=== PATIENT | female | born 1965 | race Caucasian/White ===

== ENCOUNTER 2023-05-29 12:19 | Inpatient (IN) ==
[2023-05-29] MEDS ORDERED: ONDANSETRON INJ 2 MG/ML 2 ML VIAL IV STA (12:26)
[2023-05-29] MEDS ORDERED: SODIUM CHLORIDE 0.9% 500 ML IV STA (12:26)
[2023-05-29 12:43] LABS: Hematocrit (blood only) 44.8 % (37.0-47.0); Mean Corpuscular Hemoglobin 31.3 pg (25.0-34.0); Mean Corpuscular Hgb Conc 33.5 g/dL (32.0-36.0); Mean Corpuscular Volume 93.3 fL (80.0-100.0); Mean Platelet Volume 9.4 fL (9.4-12.4); Platelet Count 222 K/uL (130-400); RDW Coefficient of Variation 13.4 % (11.5-14.5); RDW Standard Deviation 45.5 fL (36.4-46.3); White Blood Count 5.81 K/ul (4.8-10.8)
[2023-05-29 13:05] LABS: Basophils # (auto) 0.03 K/uL (0.00-0.20); Basophils % (auto) 0.5 %; Eosinophils % (auto) 1.7 %; Immature Granulocytes # (auto) 0.01 K/uL (0.01-0.20); Immature Granulocytes % (auto) 0.2 %; Lymphocytes # (auto) 0.61 K/uL (1.20-3.40); Lymphocytes % (auto) 10.5 %; Monocytes # (auto) 0.02 K/uL (0.11-0.59); Monocytes % (auto) 0.3 %; Neutrophils # (auto) 5.04 K/uL (1.40-6.50); Neutrophils % (auto) 86.8 %
[2023-05-29 13:06] LABS: Albumin Globulin Ratio 1.7 (0.9-2); Albumin Level 4.5 gm/dl (3.4-5.0); BUN Creatinine Ratio 13.3 (10-20); Bilirubin,Total 0.4 mg/dl (0.2-1.0); Calcium 10.5 mg/dl (8.6-10.3); Creatinine Clr Calc Pharmacy 31.3 ml/min; Est GFR (African American) 23.7 ml/min; Est GFR (Non-African American) 20.4 ml/min; Globulin 2.7 gm/dl (2.5-4.0); Total Protein 7.2 gm/dl (6.0-8.3)
[2023-05-29] MEDS ORDERED: HYDROmorphone INJ 1 MG/ML SYRINGE IV PRN ×2 (13:08→18:58)
--- NOTE | 2023-05-29 13:16 | CT Scan Report ---
ABDOMEN AND PELVIS CT WITHOUT CONTRAST CT DOSE: 1563.68 mGy.cm HISTORY: right flank pain TECHNIQUE: Multiaxial CT images of the abdomen and pelvis were performed without contrast. A dose lo wering technique was utilized adhering to the principles of ALARA. COMPARISON STUDY: Abdomen and pelvis CT 03/21/2023. FINDINGS: There is a cluster of small stones within the right ureterovesical junction with the larges t on image 350 measuring 4 mm resulting in moderate right hydroureteronephrosis. There is a punctate nonobstructing stone within the proximal right ureter on image 211 and an 8 x 5 mm stone within the m id right ureter on image 220. These may also account for the right-sided hydronephrosis. No left uret eral calculi or left-sided hydronephrosis. There is a punctate stone within the bladder on image 357. Small focus of gas within the bladder may be due to prior catheterization. No bladder wall thickenin g. Calcifications seen throughout the medullary pyramids and multiple bilateral renal calculi consist ent with medullary nephrocalcinosis. This remains unchanged. There is mild right perinephric edema. T his is likely reactive. Multifocal left cortical renal scarring again noted. Mild dependent changes s een within the lung bases. No pneumoperitoneum. No pneumatosis. No acute fractures identified. A stab le 7 mm hypodense lesion within the right hepatic dome. This is incompletely characterized on this no ncontrast study but favors a cyst. There is a punctate gallstone noted. No gallbladder wall thickenin g. The unenhanced pancreas, spleen, and adrenal glands are unremarkable. No retroperitoneal lymphaden opathy. Normal caliber abdominal aorta. No pelvic lymphadenopathy or pelvic free fluid. The uterus an d adnexa are unremarkable. No bowel wall thickening or obstruction. Normal appendix. IMPRESSION: 1. Multiple stones within the right ureter/ureterovesical junction resulting in moderate right hydrou reteronephrosis. 2. Multiple bilateral renal calculi with associated medullary nephrocalcinosis. 3. Cholelithiasis. 4. Additional findings as described above. ACT 112: Negative or not required by law. Electronically signed by: Geremias Coburn M.D. 05/29/2023 1:14 PM
[2023-05-29] MEDS ORDERED: ERTAPENEM SODIUM 10 ML IV STA (13:21)
--- NOTE | 2023-05-29 13:27 | Emergency Department Note ---
Impression & Plan Right ureteral calculus, Hydronephrosis, right, Complicated urinary tract infection, Acute right flank pain ED Provider Note NAME: CHIQUITA ROLAND AGE: 58 SEX: F : 1965 ARRIVES VIA: Walk-In INFORMANT: Patient, ED PROVIDER(S): Ankit Shetty DO CHIEF COMPLAINT: Flank pain HPI: The patient is a 58-year-old female who has a history of renal colic and ureteral calculi who presented to the emergency department with an acute onset of right-sided flank pain. The patient's had pain ever since this morning. She notices severe pain with nausea. The patient has a history of E. coli bacteremia as well as sepsis because of infected kidney stones. She states that the pain is similar. She denies having any rectal bleeding or chest pain. She denies having any hemoptysis. The patient presented to the emergency department because her primary urologist is at our facility. She states that he is aware that she is here. ROS: See above HPI for pertinent positives & negatives. A total of 10 systems reviewed and were otherwise negative. PAST MEDICAL HISTORY: See Below PAST SURGICAL HISTORY: See Below FAMILY HISTORY: See Below SOCIAL HISTORY: See Below HOME MEDICATIONS: See Below ALLERGIES: See Below VITALS: See Below PHYSICAL EXAMINATION: GENERAL: The patient is awake and alert. She is very anxious and appears to be uncomfortable EYES: The conjunctivae are clear. The pupils are round and reactive. EARS, NOSE, MOUTH AND THROAT: The nose is without any evidence of any deformity. NECK: The neck is nontender and supple. RESPIRATORY: Normal respiratory effort is noted there is no evidence of wheezing rhonchi or rales CARDIOVASCULAR: Regular rate and rhythm noted there no murmurs rubs or gallops normal S1 normal S2. GASTROINTESTINAL: The abdomen is soft. There is right-sided tenderness to palpation but no specific guarding rigidity. BACK: Right CVA tenderness was noted to percussion. MUSCULOSKELETAL/EXTREMITIES: There is no evidence of gross deformity full range of motion is noted in the hips and shoulders. SKIN: There is no obvious evidence of any rash. There are no petechiae, pallor or cyanosis noted. NEUROLOGIC: Patient is awake alert and oriented x3 MEDICAL DECISION MAKING: The patient is a 58-year-old female who presented to the emergency department for an evaluation of flank pain. The patient describes right flank pain that began today. The patient's history and physical exam appear to be consistent with renal colic and she has a history of similar episodes in the past. The patient also has a history of bacteremia due to infected kidney stones. I did review the patient's previous urine cultures. She was started on a course of IV antibiotics. She was also treated with IV fluids and IV pain medication. She was reevaluated multiple times. I did discuss the patient's radiographic studies with her including the CAT scan of the abdomen pelvis showing hydronephrosis as well as multiple right ureteral calculi. Because of her findings I discussed her condition with the on-call urology group. I also discussed her condition with the on-call [facility] hospitalist group. They have agreed to evaluate the patient in the emergency department for further management and disposition. Triage Nursing notes reviewed. Prior medical records reviewed Vital Signs: reviewed and remarkable for elevated blood pressure. Differential diagnosis: Renal colic, UTI, appendicitis, diverticulitis, mesenteric ischemia, aortic pathology, infections, inflammatory bowel disease, PUD, biliary pathology, as well as other pathologies. ER treatment provided: See below Diagnostics interpreted by me: ECG: none Cardiac Monitoring: An order was placed for continuous cardiac monitoring. The monitor shows a rate of 108 bpm with sinus tachycardia. Laboratory studies: As stated above and show below. Imaging studies: See below. Radiographic imaging was reviewed by myself Consultation(s): I discussed this case with Deborah who was on for Urology I discussed this case with Dr. Viera who is on-call for the [facility] hospitalist group. Past Med/Surg History Medical History Bacteremia Discharge planning issues DVT prophylaxis WENDY (acute kidney injury) Sepsis Fever Left ureteral stone History of COVID-19 diagnosed 2019--mild symptoms, no symptoms now Benign positional vertigo IBS (irritable bowel syndrome) Atelectasis per pt was a hx, had had to use an incentive spirometry--no issues currently (states she rides her bike 30 miles without any breathing issues) History of anesthesia reaction 04/2019 "intubation induced apnea" @ [facility] in [place] was told this during cystoscopy--per pt has had 2 cystoscopy procedures since then with no issues at all Nephrolithiasis Medullary sponge kidney Dilatation of left ureter History of nephrolithiasis Surgical History History of dilatation and curettage History of bilateral tubal ligation History of strabismus surgery left History of cystoscopy multiple--started in 2013 "more than a dozen". cysto, L stent 03/21/23 emergently : MAC without issue H/O lithotripsy multiple. cysto, litho 01/09/23: [place]: LMA#4 without issue Family History Family/Other Kidney stones Cancer Hypertension Mother Family history of reaction to anesthesia 1973 radical mastectomy--had difficulty time waking her Sister Family history of reaction to anesthesia difficulty waking/nausea Social History Smoking Status: Never smoker Second Hand Exposure: No; Do You Dip or Chew Tobacco: No; Hx Alcohol Use: No Hx Substance Use: No Preferred Language: Nigerian Communication Ability: Effective Speech Lang Path Therapist Required: No Beliefs That Will Affect Care: None Current Living Situation: Spouse and Family Current Living Situation Comment: Lives with and 25yr old son Feels Safe at Home: Yes Assistive Devices: Glasses Allergies Allergies Allergy/AdvReac Type Severity Reaction Status Date / Time Iodinated Contrast Media Allergy Severe Difficulty Verified 04/06/23 07:08 Breathing lactose Allergy Severe (dairy) Verified 04/06/23 07:08 Difficulty Breathing penicillin G Allergy Severe breathing Verified 04/06/23 07:08 difficulty Sulfa (Sulfonamide Allergy Severe Difficulty Verified 04/06/23 07:08 Antibiotics) Breathing adhesive tape Allergy Mild itching Verified 04/06/23 07:08 latex Allergy Mild Rash Verified 04/06/23 07:08 soy Allergy Unknown Unknown Verified 04/06/23 07:08 midazolam [From Versed] AdvReac Intermediate "i just Verified 04/06/23 07:08 get a lot of vomiting" Home Meds Home Medications Medication Instructions Recorded Confirmed cholecalciferol (vitamin D3) 25 25 mcg PO QAM 01/19/22 04/06/23 mcg (1,000 unit) capsule magnesium citrate 100 mg tablet 100 mg PO TIDM 01/19/22 04/06/23 zinc 50 mg tablet 50 mg PO QAM 01/19/22 04/06/23 potassium citrate 99 mg capsule 99 mg PO TIDM 05/01/22 04/06/23 calcium citrate 250 mg PO TIDM 08/30/22 04/06/23 Previous Rx's Medication Instructions Recorded ciprofloxacin HCl 250 mg tablet 250 mg PO BID 7 days #14 tabs 04/02/23 hydrocodone 5 mg-acetaminophen 325 1 tab PO Q6H PRN pain #20 tabs 04/06/23 mg tablet Results & Data (ED) Vital Signs Vital Signs - 24 hr 05/29/23 12:21 05/29/23 13:37 05/29/23 14:30 Temperature 36.8 C Temperature Source Temporal Artery Scan Pulse Rate 95 H 86 Pulse Rate [Apical] Pulse Rate [Radial] 114 H Pulse Rhythm Regular Pulse Rhythm [Apical] Pulse Rhythm [Radial] Regular Pulse Strength [Apical] Respiratory Rate 20 18 Respiratory Effort / Characteristics Non-Labored Spontaneous Non-Labored Respiratory Depth Normal Normal Respiratory Pattern Regular Blood Pressure 191/104 H Blood Pressure [Right Arm] 165/107 H Blood Pressure Mean 133 Blood Pressure Mean [Right Arm] 126 Blood Pressure Position [Right Arm] Pulse Oximetry 977 H 95 Oxygen Delivery Method Room Air Oxygen Flow Rate Sepsis Recent Fever Within 48 Hours No Sepsis New/Unexplained Change in Mental Status No Sepsis Action Taken by Nursing No Action Required 05/29/23 15:00 05/29/23 15:12 05/29/23 16:16 Temperature 38.8 C H 37.5 C Temperature Source Oral Temporal Artery Scan Pulse Rate 114 H Pulse Rate [Apical] 105 H 110 H Pulse Rate [Radial] Pulse Rhythm Pulse Rhythm [Apical] Regular Regular Pulse Rhythm [Radial] Regular Pulse Strength [Apical] Normal Respiratory Rate 18 20 26 H Respiratory Effort / Characteristics Non-Labored Spontaneous Non-Labored Respiratory Depth Normal Normal Respiratory Pattern Regular Regular Blood Pressure 165/107 H Blood Pressure [Right Arm] 181/98 H 155/83 H Blood Pressure Mean Blood Pressure Mean [Right Arm] 125 107 Blood Pressure Position [Right Arm] Sitting Semi-fowlers Pulse Oximetry 95 95 96 Oxygen Delivery Method Room Air Room Air Oxymask Oxygen Flow Rate 5 Sepsis Recent Fever Within 48 Hours Sepsis New/Unexplained Change in Mental Status Sepsis Action Taken by Nursing 05/29/23 16:25 05/29/23 16:35 Temperature Temperature Source Temporal Artery Scan Temporal Artery Scan Pulse Rate Pulse Rate [Apical] 109 H 108 H Pulse Rate [Radial] Pulse Rhythm Pulse Rhythm [Apical] Regular Regular Pulse Rhythm [Radial] Regular Regular Pulse Strength [Apical] Respiratory Rate 27 H 27 H Respiratory Effort / Characteristics Non-Labored Non-Labored Respiratory Depth Normal Normal Respiratory Pattern Regular Regular Blood Pressure Blood Pressure [Right Arm] 153/91 H 152/97 H Blood Pressure Mean Blood Pressure Mean [Right Arm] 111 115 Blood Pressure Position [Right Arm] Semi-fowlers Semi-fowlers Pulse Oximetry 100 100 Oxygen Delivery Method Oxymask Room Air Oxygen Flow Rate 3 0 Sepsis Recent Fever Within 48 Hours Sepsis New/Unexplained Change in Mental Status Sepsis Action Taken by Snf Medications Current Medication List: was personally reviewed by me Laboratory Data Attestation: I reviewed the patient's lab results. 05/29/23 12:28 05/29/23 12:28 Lab Results 05/29/23 05/29/23 05/29/23 Range/Units 12:28 13:35 Unknown WBC 5.81 (4.8-10.8) K/ul RBC 4.80 (4.20-5.40) M/uL Hgb 15.0 (12.0-16.0) g/dl Hct 44.8 (37.0-47.0) % MCV 93.3 (80.0-100.0) fL MCH 31.3 (25.0-34.0) pg MCHC 33.5 (32.0-36.0) g/dL RDW Std Deviation 45.5 (36.4-46.3) fL RDW Coeff of Bryant 13.4 (11.5-14.5) % Plt Count 222 (130-400) K/uL MPV 9.4 (9.4-12.4) fL Immature Gran % (Auto) 0.2 % Neut % (Auto) 86.8 % Lymph % (Auto) 10.5 % [place] % (Auto) 0.3 % Eos % (Auto) 1.7 % Baso % (Auto) 0.5 % Neut # (Auto) 5.04 (1.40-6.50) K/uL Lymph # (Auto) 0.61 L (1.20-3.40) K/uL [place] # (Auto) 0.02 L (0.11-0.59) K/uL Eos # (Auto) 0.10 (0.00-0.50) K/uL Baso # (Auto) 0.03 (0.00-0.20) K/uL Immature Gran # (Auto) 0.01 (0.01-0.20) K/uL Sodium 141 (136-145) mmol/L Potassium 4.0 (3.5-5.1) mmol/L Chloride 111 H (98-107) mmol/L Carbon Dioxide 22 (21-32) mmol/L Anion Gap 8 (3-11) BUN 33 H (6-23) mg/dl Creatinine 2.48 H (0.6-1.2) mg/dl Est Cr Clr Drug Dosing 31.3 ml/min Est GFR ( Amer) 23.7 ml/min Est GFR (Non-Af Amer) 20.4 ml/min BUN/Creatinine Ratio 13.3 (10-20) Glucose 109 H (70-99(Fasting)) mg/dl Calcium 10.5 H (8.6-10.3) mg/dl Total Bilirubin 0.4 (0.2-1.0) mg/dl AST 23 (13-39) U/L ALT 19 (7-52) U/L Alkaline Phosphatase 79 (34-104) U/L Total Protein 7.2 (6.0-8.3) gm/dl Albumin 4.5 (3.4-5.0) gm/dl Globulin 2.7 (2.5-4.0) gm/dl Albumin/Globulin Ratio 1.7 (0.9-2) Urine Color Yellow Urine Appearance Cloudy A (Clear) Urine pH 7.0 (4.5-7.5) POC Urine pH 6 (4.5-7.5) Ur Specific [place] 1.008 (1.000-1.030) Urine Protein 1+ H (Negative) POC Urine Protein 3+ H (Negative) Urine Glucose (UA) Negative (Negative) POC Ur Glucose (UA) Normal (Normal) Urine Ketones Negative (Negative) POC Urine Ketones Negative (Negative) Urine Blood 2+ H (Negative) POC Urine Blood 50 H (Negative) Urine Nitrite Positive A (Negative) POC Urine Nitrite Positive A (Negative) Urine Bilirubin Negative (Negative) POC Urine Bilirubin Negative (Negative) Urine Urobilinogen Negative (Negative) POC Urine Urobilinogen Normal (Normal) Ur Leukocyte Esterase 3+ H (Negative) POC U Leukocyte Esteras 2+ H (Negative) Urine WBC (Auto) >30 H (0-5) /hpf Urine RBC (Auto) 10-30 H (0-4) /hpf U Hyaline Cast (Auto) 1-5 (0-5) /lpf U Epithel Cells (Auto) 20-30 H (0-5) /lpf Urine Bacteria (Auto) 2+ H (Negative) Administered Medications Discontinued Medications Sodium Chloride (Nss) 500 mls @ 999 mls/hr IV .Q31M STA Stop: 05/29/23 12:56 Last Infusion: 05/29/23 13:14 Dose: Infused Documented By: Admin: 05/29/23 12:33 Dose: 999 mls/hr Documented By: ALL Ertapenem (Invanz) 10 mls @ 2 mls/min IV NOW STA Stop: 05/29/23 13:25 Last Admin: 05/29/23 14:05 Dose: 2 mls/min Documented By: RADHA Ondansetron HCl (Ondansetron Inj 2 Mg/Ml 2 Ml Vial) 4 mg IV NOW STA Stop: 05/29/23 12:27 Last Admin: 05/29/23 12:33 Dose: 4 mg Documented By: ALL Ondansetron HCl (Ondansetron Inj 2 Mg/Ml 2 Ml Vial) Confirm Administered Dose 4 mg .ROUTE .STK-MED ONE Stop: 05/29/23 16:39 Last Admin: 05/29/23 16:43 Dose: 4 mg Documented By: YOLI Imaging Data Attestation: I personally reviewed and interpreted this imaging study as follows: My Impression: CT of the abdomen and pelvis was obtained in the emergency department. My interpretation is no free air, no signs of bowel obstruction, hydronephrosis and stranding was noted about the right kidney and the right proximal ureter. There is also ureteral calculus noted in the proximal mid ureter. Final report below Radiologist's Impression: Abdomen/Pelvis CT 05/29/23 12:[address] WITHOUT CONTRAST CT DOSE: 1563.68 mGy.cm HISTORY: right flank pain TECHNIQUE: Multiaxial CT images of the abdomen and pelvis were performed without contrast. A dose lowering technique was utilized adhering to the principles of ALARA. COMPARISON STUDY: Abdomen and pelvis CT 03/21/2023. FINDINGS: There is a cluster of small stones within the right ureterovesical junction with the largest on image 350 measuring 4 mm resulting in moderate right hydroureteronephrosis. There is a punctate nonobstructing stone within the proximal right ureter on image 211 and an 8 x 5 mm stone within the mid right ureter on image 220. These may also account for the right-sided hydronephrosis. No left ureteral calculi or left-sided hydronephrosis. There is a punctate stone within the bladder on image 357. Small focus of gas within the bladder may be due to prior catheterization. No bladder wall thickening. Calcifications seen throughout the medullary pyramids and multiple bilateral renal calculi consistent with medullary nephrocalcinosis. This remains unchanged. There is mild right perinephric edema. This is likely reactive. Multifocal left cortical renal scarring again noted. Mild dependent changes seen within the lung bases. No pneumoperitoneum. No pneumatosis. No acute fractures identified. A stable 7 mm hypodense lesion within the right hepatic dome. This is incompletely characterized on this noncontrast study but favors a cyst. There is a punctate gallstone noted. No gallbladder wall thickening. The unenhanced pancreas, spleen, and adrenal glands are unremarkable. No retroperitoneal lymphadenopathy. Normal caliber abdominal aorta. No pelvic lymphadenopathy or pelvic free fluid. The uterus and adnexa are unremarkable. No bowel wall thickening or obstruction. Normal appendix. IMPRESSION: 1. Multiple stones within the right ureter/ureterovesical junction resulting in moderate right hydroureteronephrosis. 2. Multiple bilateral renal calculi with associated medullary nephrocalcinosis. 3. Cholelithiasis. 4. Additional findings as described above. ACT 112: Negative or not required by law. Electronically signed by: Geremias Coburn M.D. 05/29/2023 1:14 PM Discharge Plan Visit Data Chief Complaint: Kidney Stone Stated Complaint: KIDNEY STONE ED Provider: Ankit Shetty Discharge Problem: Right ureteral calculus, Hydronephrosis, right, Complicated urinary tract infection, Acute right flank pain Patient Disposition: Being Evaluated by Hospitalist Discharge Instructions Interventions: ED Discharge Assessment Last Done: 05/29/23 15:00
[2023-05-29 13:50] LABS: Appearance Urine Cloudy (Clear); Bacteria Urine Automated 2+ (Negative); Bilirubin Urine Negative (Negative); Blood Urine 2+ (Negative); Color Urine Yellow; Epithelial Cell Urine Auto 20-30 /lpf (0-5); Glucose Urine UA Negative (Negative); Ketones Urine Negative (Negative); Leukocyte Esterase Urine 3+ (Negative); Nitrite Urine Positive (Negative); Protein Urine 1+ (Negative); Specific Gravity Urine 1.008 (1.000-1.030); Urobilinogen Urine Negative (Negative); WBC Urine Automated >30 /hpf (0-5)
[2023-05-29 13:58] LABS: POC Urine Bilirubin Negative (Negative); POC Urine Blood 50 (Negative); POC Urine Glucose Normal (Normal); POC Urine Ketones Negative (Negative); POC Urine Leukocytes 2+ (Negative); POC Urine Nitrite Positive (Negative); POC Urine Protein 3+ (Negative); POC Urine Urobilinogen Normal (Normal); POC Urine pH 6 (4.5-7.5)
--- NOTE | 2023-05-29 14:50 | Urology Consultation ---
Date of Consultation May 29, 2023 Assessment & Plan (1) Right ureteral calculus: (2) Hydronephrosis, right: 58yoF with history of medullary sponge kidney and recurrent nephrolithiasis presented to the emergency department today with acute onset of right flank pain, nausea and vomiting. CT A/P notable for multiple right ureteral calculi with resulting moderate hydronephrosis and UA is suspicious for infection. Patient currently afebrile She is tachycardic during exam with rigors Lab work reviewedcreatinine 2.48, WBC 5.81 UA suspicious for infection with positive nitrates, 3+ leukocyte esterase, >30 WBC, 2+ bacteria Urine culture pending CT imaging reviewed and discussed with patient and husbandmultiple obstructing right ureteral calculi with hydronephrosis, right perinephric stranding Discussed concern for urinary tract infection in the context of obstructing stones Discussed recommendation for right ureteral stent placement urgently Patient is in agreement with the plan Proceed to OR for cystoscopy, retrograde pyelogram and right ureteral stent placement Risks and benefits of procedure to be discussed with patient by Dr. Geronimo Received Ertapenem in the ED Keep NPO for procedure Supervising Physician Co-Signing Physician Notes plan for cysto, right ureteral stent placement now long history of similar occurrences History of Present Illness History of Present Illness This is a 58-year-old female with past medical history of nephrolithiasis, medullary sponge kidney who presented to the emergency department today with right flank pain, nausea and vomiting. On arrival, she is afebrile, hypertensive, tachycardic. Lab work reviewed and shows creatinine 2.48, WBC 5.81, hemoglobin 15.0. Urinalysis notable for 2+ blo od, positive nitrates, 3+ leukocyte esterase, >30 WBC, 10-30 RBC, 2+ bacteria. Urine culture pending. CT abdomen and pelvis notable for multiple stones within the right ureter and UVJ resulting in moderate right hydroureteronephrosis; multiple bilateral renal calculi consistent with medullary nephrocalcinosis. She was treated with IV fluids, ondansetron and ertapenem in the emergency department. Urology is consulted for ureteral stones and UTI. Patient is known to our service for longstanding hx of nephrolithiasis and medullary sponge kidney, follows with Dr. Geronimo. She was admitted to [facility] 03/21-03/23/23 secondary to obstructing ureteral calculus/UTI/sepsis. She had emergent left stent placement on 03/21/23. Subsequently underwent left URSLL, stent exchange on 04/06/2023. Patient seen and examined in the emergency department. at bedside. She is awake and resting in litter, appears uncomfortable. Denies fever, but has shaking chills which she reports started earlier. Continues to have significant right-sided flank pain. She reports sudden onset of right flank pain around 8 am this am. She declines pain medication due to significant nausea and vomiting. She last ate this morning around 5 AM, but has been vomiting consistently since then. She denies hematuria. No significant dysuria. Reports urine is malodorous. Allergies Allergy/AdvReac Type Severity Reaction Status Date / Time Iodinated Contrast Media Allergy Severe Difficulty Verified 04/06/23 07:08 Breathing lactose Allergy Severe (dairy) Verified 04/06/23 07:08 Difficulty Breathing penicillin G Allergy Severe breathing Verified 04/06/23 07:08 difficulty Sulfa (Sulfonamide Allergy Severe Difficulty Verified 04/06/23 07:08 Antibiotics) Breathing adhesive tape Allergy Mild itching Verified 04/06/23 07:08 latex Allergy Mild Rash Verified 04/06/23 07:08 soy Allergy Unknown Unknown Verified 04/06/23 07:08 midazolam [From Versed] AdvReac Intermediate "i just Verified 04/06/23 07:08 get a lot of vomiting" Home Medications Medication Instructions Recorded Confirmed Type cholecalciferol (vitamin D3) 25 25 mcg PO QAM 01/19/22 04/06/23 History mcg (1,000 unit) capsule magnesium citrate 100 mg tablet 100 mg PO TIDM 01/19/22 04/06/23 History zinc 50 mg tablet 50 mg PO QAM 01/19/22 04/06/23 History potassium citrate 99 mg capsule 99 mg PO TIDM 05/01/22 04/06/23 History calcium citrate 250 mg PO TIDM 08/30/22 04/06/23 History ciprofloxacin HCl 250 mg tablet 250 mg PO BID 7 days #14 tabs 04/02/23 04/06/23 Rx hydrocodone 5 mg-acetaminophen 325 1 tab PO Q6H PRN pain #20 tabs 04/06/23 Rx mg tablet Patient History Medical History Bacteremia Discharge planning issues DVT prophylaxis WENDY (acute kidney injury) Sepsis Fever Left ureteral stone History of COVID-19 diagnosed 2019--mild symptoms, no symptoms now Benign positional vertigo IBS (irritable bowel syndrome) Atelectasis per pt was a hx, had had to use an incentive spirometry--no issues currently (states she rides her bike 30 miles without any breathing issues) History of anesthesia reaction 04/2019 "intubation induced apnea" @ [facility] in [place] was told this during cystoscopy--per pt has had 2 cystoscopy procedures since then with no issues at all Nephrolithiasis Medullary sponge kidney Dilatation of left ureter History of nephrolithiasis Surgical History History of dilatation and curettage History of bilateral tubal ligation History of strabismus surgery left History of cystoscopy multiple--started in 2013 "more than a dozen". cysto, L stent 03/21/23 emergently : MAC without issue H/O lithotripsy multiple. 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 Beliefs That Will Affect Care: None Current Living Situation: Spouse and Family Current Living Situation Comment: Lives with and 25yr old son Feels Safe at Home: Yes Assistive Devices: Glasses Review of Systems Review of Systems: All systems reviewed & are unremarkable except as noted in HPI & below Physical Exam Constitutional: + ill appearing; no acute distress and + uncomfortable Respiratory: normal respiratory effort; no respiratory distress and no labored breathing Cardiovascular: Rate/Rhythm: + tachycardic Gastrointestinal (Abdomen): Inspection/Auscultation: abdomen normal to inspection; abdomen not distended Musculoskeletal: Head/Neck/Chest: normocephalic Neurologic: awake Psychiatric: Orientation: alert and oriented x 3 Results & Data Vital Signs (Past 12 Hours) Vital Signs Temp Pulse Resp BP Pulse Ox 05/29/23 13:37 86 05/29/23 12:21 36.8 C 95 H 20 191/104 H 977 H PG Care Time/CCT Total # of Minutes Spent Total Time Spent with Patient: Total time spent is greater than 50% in coordination of care (as documented) at patient's floor/unit and/or counseling patient: Coding Level of Care Code 99311 IN/OBS CONSULT LVL 4,60M Diagnoses Right ureteral calculus N20.1 Hydronephrosis, right N13.30
--- NOTE | 2023-05-29 14:56 | History & Physical Report ---
Date of Service May 29, 2023 Assessment & Plan (1) S/P ureteral stent placement: Plan: Patient developed right-sided flank pain, nausea, vomiting at 0800 on 05/29 No leukocytosis; however, patient has had intermittent fever at >38.[address] abdomen pelvis revealed multiple stones in the right UVJ Patient went to the OR with Dr. Geronimo, and had a cystoscopy with right ureteral stent placement Acetaminophen 650 mg p.o. q4h for pain 13 /fever Dilaudid 0.51.0 IV q4h as needed for breakthrough plan Gentle fluid resuscitation with lactated Ringer's OOB as tolerated Appreciate urology consult A.m. CBC, BMP, mag (2) Complicated urinary tract infection: Plan: Hx of E. coli bacteremia from infected kidney stone Ertapenem 1g IV started in the ED; continue q24h, based on PCN allergy and sensitivity with most recent blood culture Blood cultures ordered following antibiotic therapy in the ED Urine cultures ordered, pending (3) Medullary sponge kidney: Plan: Continue zinc, calcium citrate, vitamin D3, magnesium citrate, and potassium citrate (4) Sepsis: Present on Admission?: No Plan Disposition: Admit to [facility] telemetry Full code Regular diet VTE PPx: Encourage ambulation History of Present Illness Chief Complaint: Kidney stone; R-sided flank pain Primary Care Provider: Arvin Wleler MD Kailyn is a 58-year-old female with PMH of medullary sponge kidney, and E. coli bacteremia from infected kidney stone. She presented for right flank pain that came on acutely at 0800 on the morning of 05/29. She took 2.5 mg of Dilaudid at 1030, which had previously been given for kidney stones. She described the pain as burning, constant; rated 15 out of 10. The pain is worse when standing up, and alleviated by lying flat. She ate at 5 AM, but has not eaten since. CT abdomen/pelvis revealed multiple stones in the right UVJ. Patient was taken to the OR with Dr. Geronimo shortly after arrival in the ED, and had a cystoscopy with right ureteral stent placement. Postop, she reports no pain. History of kidney stones, with prior stent placement. She reports that she took all of her morning medications, and that there were no recent changes to medications. Denies history of trauma to the back or pelvis. Patient is mildly hypertensive at 157/98 at 1655 on 05/29 following procedure; SPO2 at 94% on RA; vitals otherwise stable. ED course: Ertapenem 10 mL IV Zofran 4 mg NSS 1000 mL ROS: Patient endorses dry cough, nausea, multiple episodes vomiting that began the morning of 05/29, right flank pain, and foul-smelling urine. Patient denies fever, headache, CP, SOB, abdominal pain, back pain, hematuria, burning with urination, saddle anesthesia, or numbness or tingling going down the legs. Patient denies PMH of NC, DVT/PE, or cancer Allergies Allergy/AdvReac Type Severity Reaction Status Date / Time Iodinated Contrast Media Allergy Severe Difficulty Verified 04/06/23 07:08 Breathing lactose Allergy Severe (dairy) Verified 04/06/23 07:08 Difficulty Breathing penicillin G Allergy Severe breathing Verified 04/06/23 07:08 difficulty Sulfa (Sulfonamide Allergy Severe Difficulty Verified 04/06/23 07:08 Antibiotics) Breathing adhesive tape Allergy Mild itching Verified 04/06/23 07:08 latex Allergy Mild Rash Verified 04/06/23 07:08 soy Allergy Unknown Unknown Verified 04/06/23 07:08 midazolam [From Versed] AdvReac Intermediate "i just Verified 04/06/23 07:08 get a lot of vomiting" Home Medications Medication Instructions Recorded Confirmed Type cholecalciferol (vitamin D3) 25 25 mcg PO QAM 01/19/22 05/29/23 History mcg (1,000 unit) capsule magnesium citrate 100 mg tablet 100 mg PO TIDM 01/19/22 05/29/23 History zinc 50 mg tablet 50 mg PO QAM 01/19/22 05/29/23 History potassium citrate 99 mg capsule 99 mg PO TIDM 05/01/22 05/29/23 History calcium citrate 250 mg PO TIDM 08/30/22 05/29/23 History Past Med/Surg History Medical History (Updated 05/30/23 @ 09:43 by Osmin Viera MD) Sepsis Bacteremia Discharge planning issues DVT prophylaxis WENDY (acute kidney injury) Fever Left ureteral stone History of COVID-19 diagnosed 2019--mild symptoms, no symptoms now Benign positional vertigo IBS (irritable bowel syndrome) Atelectasis per pt was a hx, had had to use an incentive spirometry--no issues currently (states she rides her bike 30 miles without any breathing issues) History of anesthesia reaction 04/2019 "intubation induced apnea" @ [facility] in [place] was told this during cystoscopy--per pt has had 2 cystoscopy procedures since then with no issues at all Nephrolithiasis Medullary sponge kidney Dilatation of left ureter History of nephrolithiasis Surgical History (Updated 05/29/23 @ 17:35 by Geremias Lock PA-C) History of dilatation and curettage History of bilateral tubal ligation History of strabismus surgery left History of cystoscopy multiple--started in 2013 "more than a dozen". cysto, L stent 03/21/23 emergently : MAC without issue H/O lithotripsy multiple. 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 Beliefs That Will Affect Care: None Current Living Situation: Spouse and Family Current Living Situation Comment: Lives with and 25yr old son Other Information That Helps Us Care for You: No Feels Safe at Home: Yes Safety Concerns: Feels Safe At This Time Assistive Devices: Glasses Review of Systems Review of Systems: See HPI above Physical Exam Physical Exam: General: no acute distress; lethargic, sedated following procedure; non-toxic appearing; well-nourished; cooperative HEENT: normocephalic, atraumatic; PERRLA w/ EOMs intact; dry mucus membrane; vision and hearing grossly intact Neck: supple; no lymphadenopathy; trachea midline Skin: warm, dry without signs of tenting; no cyanosis; no rashes, bruising, lesions, or erythema noted CV: chest wall NTP; RRR; S1/S2 normal; no murmurs/rubs/gallops; pulses intact and symmetric at radial, DP, and PT Lungs: no acute respiratory distress; symmetrical chest wall expansion; clear breath sounds across all lung [place] w/o adventitious sounds; no wheezing ABD: Soft, NTP; BS present; no rebound/guarding; no ascites; mild distention secondary to body habitus; flanks NTP Back: Negative CVA tenderness; no signs of rashes, erythema, swelling, bruising, or internal bleeding; NTP MSK: no tics or fasciculations; no edema noted in the LEs b/l, nonerythematous; patient demonstrates ability to wiggle toes Neuro: A&Ox3; normal mood and affect; fluent speech; no focal deficits; sensation grossly intact in the LEs B/L Results & Data Results & Data Vital Signs (Past 12 Hours) Vital Signs Temp Pulse Resp BP Pulse Ox 05/29/23 13:37 86 05/29/23 12:21 36.8 C 95 H 20 191/104 H 977 H Laboratory Results Abnormal lab results 05/29/23 05/29/23 05/29/23 Range/Units 12:28 13:35 Unknown Lymph # (Auto) 0.61 L (1.20-3.40) K/uL [place] # (Auto) 0.02 L (0.11-0.59) K/uL Chloride 111 H (98-107) mmol/L BUN 33 H (6-23) mg/dl Creatinine 2.48 H (0.6-1.2) mg/dl Glucose 109 H (70-99(Fasting)) mg/dl Calcium 10.5 H (8.6-10.3) mg/dl Urine Appearance Cloudy A (Clear) Urine Protein 1+ H (Negative) POC Urine Protein 3+ H (Negative) Urine Blood 2+ H (Negative) POC Urine Blood 50 H (Negative) Urine Nitrite Positive A (Negative) POC Urine Nitrite Positive A (Negative) Ur Leukocyte Esterase 3+ H (Negative) POC U Leukocyte Esteras 2+ H (Negative) Urine WBC (Auto) >30 H (0-5) /hpf Urine RBC (Auto) 10-30 H (0-4) /hpf U Epithel Cells (Auto) 20-30 H (0-5) /lpf Urine Bacteria (Auto) 2+ H (Negative) Diagnostic Findings Abdomen/Pelvis CT 05/29/23 12:[address] WITHOUT CONTRAST CT DOSE: 1563.68 mGy.cm HISTORY: right flank pain TECHNIQUE: Multiaxial CT images of the abdomen and pelvis were performed without contrast. A dose lowering technique was utilized adhering to the principles of ALARA. COMPARISON STUDY: Abdomen and pelvis CT 03/21/2023. FINDINGS: There is a cluster of small stones within the right ureterovesical junction with the largest on image 350 measuring 4 mm resulting in moderate right hydroureteronephrosis. There is a punctate nonobstructing stone within the proximal right ureter on image 211 and an 8 x 5 mm stone within the mid right ureter on image 220. These may also account for the right-sided hydronephrosis. No left ureteral calculi or left-sided hydronephrosis. There is a punctate stone within the bladder on image 357. Small focus of gas within the bladder may be due to prior catheterization. No bladder wall thickening. Calcifications seen throughout the medullary pyramids and multiple bilateral renal calculi consistent with medullary nephrocalcinosis. This remains unchanged. There is mild right perinephric edema. This is likely reactive. Multifocal left cortical renal scarring again noted. Mild dependent changes seen within the lung bases. No pneumoperitoneum. No pneumatosis. No acute fractures identified. A stable 7 mm hypodense lesion within the right hepatic dome. This is incompletely characterized on this noncontrast study but favors a cyst. There is a punctate gallstone noted. No gallbladder wall thickening. The unenhanced pancreas, spleen, and adrenal glands are unremarkable. No retroperitoneal lymphadenopathy. Normal caliber abdominal aorta. No pelvic lymphadenopathy or pelvic free fluid. The uterus and adnexa are unremarkable. No bowel wall thickening or obstruction. Normal appendix. IMPRESSION: 1. Multiple stones within the right ureter/ureterovesical junction resulting in moderate right hydroureteronephrosis. 2. Multiple bilateral renal calculi with associated medullary nephrocalcinosis. 3. Cholelithiasis. 4. Additional findings as described above. ACT 112: Negative or not required by law. Electronically signed by: Geremias Coburn M.D. 05/29/2023 1:14 PM Code Status & VTE Plan Code Status Full code VTE Prophylaxis Plan VTE Prophylaxis will be ordered: Yes Supervising Physician Co-Signing Physician Notes I personally saw and examined the patient. I independently reviewed the labs, EKG, imaging, problem list, medication list, past medical history and family history. I verified all duran points and agree with Geremias Lock PA-C with the following exceptions and/or additions: 58 year old patient presented with right flank pain adn foul smelling urine with CT showing Multiple stones within the right ureter/ureterovesical junction resulting in moderate right hydroureteronephrosis. Multiple prior occasions with UTI sepsis. Patient emergently taken to the OR for stent placement therefore patient seen after the OR. O/E HS increased rate, regular rhythm, Chest CTAB, mild right CVA tenderness, Abdo SNT A/P Sepsis criteria met only after ureteral stent placement - only had 500ml NSS in the ER. No blood cultures taken prior to antibiotics. Blood cultures ordered while in the OR but only had taken after she transferred to the cooley. Give LR 1.5L bolus now then increase rat to 150ml/hr. Ureterolithiasis - s/p stent insertion. Appreciate ongoing urology management. UTI - prior cultures with ESBL - appropriately given ertapenem in the ER. Patient requests dialysis renal, gluten free, lactose free diet PG Care Time/CCT Total # of Minutes Spent Total Time Spent with Patient: Total time spent is greater than 50% in coordination of care (as documented) at patient's floor/unit and/or counseling patient: Coding [place] [address] INT INP/OBS CARE 3/75MIN Patient Type Established Medical Decision Making Moderate Complexity Diagnoses S/P ureteral stent placement Z96.0 Complicated urinary tract infection N39.0 Medullary sponge kidney Q61.5 Sepsis A41.9
[2023-05-29] MEDS ORDERED: PROPOFOL IV EMULSION 10 MG/ML 20 ML VIAL IV ONE (15:06)
[2023-05-29] MEDS ORDERED: LIDOCAINE 2% 2 ML VIAL/AMP(20MG/ML) INFIL ONE (15:06)
[2023-05-29] MEDS ORDERED: ONDANSETRON INJ 2 MG/ML 2 ML VIAL ONE ×2 (15:06→16:38)
[2023-05-29] MEDS ORDERED: fentaNYL citrate PF 100 MCG/2 ML VIAL ONE (15:12)
[2023-05-29] MEDS ORDERED: LACTATED RINGER'S 1,000 ML IV SCH (15:15)
--- NOTE | 2023-05-29 15:15 | Anesthesiology Consultation ---
Date of Service May 29, 2023 Assessment & Plan (1) Encounter for pre-operative examination: Chart Review Chart Review: Patient NOT seen in Pre Admission Testing emergent procedure Consults Requested none History Surgery Operation Date: 05/29/23 14:50 Proposed Procedures p Cystoscopy Retrograde Pyelogram, Right Stent Placement - Lance Geronimo MD Height/Weight Height: 5 ft 9 in Weight: 106.5 kg Allergies Allergy/AdvReac Type Severity Reaction Status Date / Time Iodinated Contrast Media Allergy Severe Difficulty Verified 04/06/23 07:08 Breathing lactose Allergy Severe (dairy) Verified 04/06/23 07:08 Difficulty Breathing penicillin G Allergy Severe breathing Verified 04/06/23 07:08 difficulty Sulfa (Sulfonamide Allergy Severe Difficulty Verified 04/06/23 07:08 Antibiotics) Breathing adhesive tape Allergy Mild itching Verified 04/06/23 07:08 latex Allergy Mild Rash Verified 04/06/23 07:08 soy Allergy Unknown Unknown Verified 04/06/23 07:08 midazolam [From Versed] AdvReac Intermediate "i just Verified 04/06/23 07:08 get a lot of vomiting" Medications Home Medications Medication Instructions Recorded Confirmed Last Taken cholecalciferol (vitamin D3) 25 25 mcg PO QAM 01/19/22 04/06/23 04/03/23 mcg (1,000 unit) capsule magnesium citrate 100 mg tablet 100 mg PO TIDM 01/19/22 04/06/23 04/03/23 zinc 50 mg tablet 50 mg PO QAM 01/19/22 04/06/23 04/03/23 potassium citrate 99 mg capsule 99 mg PO TIDM 05/01/22 04/06/23 04/03/23 calcium citrate 250 mg PO TIDM 08/30/22 04/06/23 04/03/23 ciprofloxacin HCl 250 mg tablet 250 mg PO BID 7 days #14 tabs 04/02/23 04/06/23 04/05/23 18:00 hydrocodone 5 mg-acetaminophen 325 1 tab PO Q6H PRN pain #20 tabs 04/06/23 Unknown mg tablet NPO Date Last Intake of Fluids: 05/29/23 Time Last Intake of Fluids: 09:00 Date Last Intake of Solids: 05/29/23 Time Last Intake of Solids: 08:30 Past Medical History Medical History Bacteremia Discharge planning issues DVT prophylaxis WENDY (acute kidney injury) Sepsis Fever Left ureteral stone History of COVID-19 diagnosed 2019--mild symptoms, no symptoms now Benign positional vertigo IBS (irritable bowel syndrome) Atelectasis per pt was a hx, had had to use an incentive spirometry--no issues currently (states she rides her bike 30 miles without any breathing issues) History of anesthesia reaction 04/2019 "intubation induced apnea" @ [facility] in [place] was told this during cystoscopy--per pt has had 2 cystoscopy procedures since then with no issues at all Nephrolithiasis Medullary sponge kidney Dilatation of left ureter History of nephrolithiasis Past Family History Family History Family/Other Kidney stones Cancer Hypertension Mother Family history of reaction to anesthesia 1972 radical mastectomy--had difficulty time waking her Sister Family history of reaction to anesthesia difficulty waking/nausea Past Surgical History Surgical History History of dilatation and curettage History of bilateral tubal ligation History of strabismus surgery left History of cystoscopy multiple--started in 2013 "more than a dozen". cysto, L stent 03/21/23 emergently : MAC without issue H/O lithotripsy multiple. cysto, litho 01/09/23: [place]: LMA#4 without issue Social History Smoking Status: Never smoker Do You Dip or Chew Tobacco: No Hx Alcohol Use: No Hx Substance Use: No substance use type: does not use Physical Exam Vital Signs Last Vital Signs Temp 98.2 F 05/29/23 12:21 Pulse 114 H 05/29/23 15:00 Resp 18 05/29/23 15:00 BP 165/107 H 05/29/23 15:00 Pulse Ox 95 05/29/23 15:00 O2 Del Method Room Air 05/29/23 15:00 Testing Laboratory Results 05/29/23 12:28 05/29/23 12:28 Urine Color Yellow 05/29/23 Unknown Urine Appearance Cloudy (Clear) A 05/29/23 Unknown Urine pH 7.0 (4.5-7.5) 05/29/23 Unknown Ur Specific [place] 1.008 (1.000-1.030) 05/29/23 Unknown Urine Protein 1+ (Negative) H 05/29/23 Unknown Urine Glucose (UA) Negative (Negative) 05/29/23 Unknown Urine Ketones Negative (Negative) 05/29/23 Unknown Urine Nitrite Positive (Negative) A 05/29/23 Unknown Ur Leukocyte Esterase 3+ (Negative) H 05/29/23 Unknown Urine WBC (Auto) >30 /hpf (0-5) H 05/29/23 Unknown Urine RBC (Auto) 10-30 /hpf (0-4) H 05/29/23 Unknown U Hyaline Cast (Auto) 1-5 /lpf (0-5) 05/29/23 Unknown U Epithel Cells (Auto) 20-30 /lpf (0-5) H 05/29/23 Unknown Urine Bacteria (Auto) 2+ (Negative) H 05/29/23 Unknown
--- NOTE | 2023-05-29 16:12 | Operative Report ---
PG Post Operative Report Pre & Post Diagnosis Operation Date: 05/29/23 14:50 Pre: obstructing right ureteral calculus Post: obstructing right ureteral calculus I identified the patient and participated in the time-out.: Yes Procedure Operation Date: 05/29/23 14:50 Procedure: cystoscopy, right ureteral stent Surgeon Lance Geronimo MD [employer] none Estimated Blood Loss 0 Findings Consistent with Post-Op Diagnosis Specimens none Description of Procedure The patient was identified in the preoperative holding area, appropriate informed consents were reviewed and completed and the patient was transferred to the operative suite. Upon arrival, appropriate antibiotics and anesthesia were administered and the patient was placed in dorsal lithotomy position and prepped and draped in sterile fashion. Begin the case I passed a 21.5 American cystoscope with 30 degree lens. Inspection revealed a healthy-appearing urethra. She does have inflammation of her bladder consistent with a UTI. Ureteral orifices in orthotopic position. There were no stones protruding from either orifice. I turned attention to the right orifice and cannulated with a sensor wire and a 5 American open-ended catheter. Wire advanced the kidney without great difficulty and there was immediate discharge of dark urine after the wire bypassed the obstructing proximal ureteral calculus. I then proceeded to place a 6 American by 26 cm double-J stent seeing good curl in the kidney as well as the bladder. There was good drainage of urine through and around the stent after deployment. The case was subsequently concluded and she was reversed of anesthesia. There were no complications. I attest to the content of the Intraoperative Record and any orders documented therein. Any exceptions are noted below.
--- NOTE | 2023-05-29 16:47 | Anesthesiology Progress Note ---
Date of Service May 29, 2023 Anesthesia Post Procedure Vital Signs Vital Signs: Temp Pulse Pulse Pulse Resp BP BP 05/29/23 16:35 108 H 27 H 152/97 H 05/29/23 16:25 109 H 27 H 153/91 H 05/29/23 16:16 99.5 F 110 H 26 H 155/83 H 05/29/23 15:12 101.8 F H 105 H 20 181/98 H 05/29/23 15:00 114 H 18 165/107 H 05/29/23 14:30 114 H 18 165/107 H 05/29/23 13:37 86 05/29/23 12:21 98.2 F 95 H 20 191/104 H Pulse Ox O2 Del Method O2 Flow Rate 05/29/23 16:35 100 Room Air 0 05/29/23 16:25 100 Oxymask 3 05/29/23 16:16 96 Oxymask 5 05/29/23 15:12 95 Room Air 05/29/23 15:00 95 Room Air 05/29/23 14:30 95 Room Air 05/29/23 13:37 05/29/23 12:21 977 H Pain Intensity Abdomen: Pain Intensity: 0 Transfer of Care Handoff Completed per policy Notes Mental Status: alert / awake / arousable and participated in evaluation Patient Amnestic to Procedure: Yes Nausea / Vomiting: adequately controlled Pain: adequately controlled Airway Patency, RR, SpO2: stable & adequate BP & HR: stable & adequate Hydration State: stable & adequate Anesthetic Complications: no major complications apparent and Pt Satisfied with anesthetic care
[2023-05-29 17:54] LABS: Magnesium 2.3 mg/dl (1.7-2.4)
[2023-05-29] MEDS ORDERED: HYDROmorphone INJ 0.5 MG/0.5 ML SYR IV PRN (18:58)
--- NOTE | 2023-05-29 19:52 | Fluoroscopy Report ---
FL KUB CLINICAL HISTORY: RT CYSTO STENT TECHNIQUE: 1 views were obtained with the C-arm in the OR with the above procedure. Total fluoroscopy time was 3.3 seconds. Radiation dose was 0.99 mGy. Comparison: Comparison is made to CT abdomen pelvis 05/29/2023 FINDINGS/IMPRESSION: Intraoperative images were obtained of right cystogram and stent placement. In t he final images, the stent is in satisfactory position. Please correlate with intraoperative fluoroscopy and operative report. ACT 112: Negative or not required by law. Electronically signed by: Jose Goel M.D. 05/29/2023 7:50 PM
[2023-05-29] MEDS: LACTATED RINGER'S 1,000 ML IV SCH ×2 (21:41→23:24)
[2023-05-29] MEDS: ACETAMINOPHEN 325 MG TAB PO PRN (21:41)
[2023-05-29] MEDS ORDERED: LACTATED RINGER'S 1,000 ML IV ONE (22:09)
[2023-05-29] MEDS ORDERED: LACTATED RINGER'S 500 ML IV ONE (22:25)
[2023-05-30] MEDS: LACTATED RINGER'S 1,000 ML IV SCH (04:10)
[2023-05-30 05:02] LABS: Calcium 8.7 mg/dl (8.6-10.3); Creatinine Clr Calc Pharmacy 27.4 ml/min; Est GFR (African American) 20.1 ml/min; Est GFR (Non-African American) 17.3 ml/min; Magnesium 1.9 mg/dl (1.7-2.4); Potassium 3.9 mmol/L (3.5-5.1)
[2023-05-30 05:10] LABS: Basophils # (auto) 0.07 K/uL (0.00-0.20); Basophils % (auto) 0.4 %; Eosinophils # (auto) 0.01 K/uL (0.00-0.50); Eosinophils % (auto) 0.1 %; Hematocrit (blood only) 37.2 % (37.0-47.0); Hemoglobin 12.2 g/dl (12.0-16.0); Immature Granulocytes # (auto) 0.25 K/uL (0.01-0.20); Immature Granulocytes % (auto) 1.4 %; Lymphocytes # (auto) 0.75 K/uL (1.20-3.40); Lymphocytes % (auto) 4.2 %; Mean Corpuscular Hemoglobin 30.7 pg (25.0-34.0); Mean Corpuscular Hgb Conc 32.8 g/dL (32.0-36.0); Mean Corpuscular Volume 93.5 fL (80.0-100.0); Mean Platelet Volume 9.6 fL (9.4-12.4); Monocytes # (auto) 1.28 K/uL (0.11-0.59); Monocytes % (auto) 7.2 %; Neutrophils # (auto) 15.47 K/uL (1.40-6.50); Neutrophils % (auto) 86.7 %; Platelet Count 145 K/uL (130-400); RDW Standard Deviation 48.4 fL (36.4-46.3); Red Blood Count 3.98 M/uL (4.20-5.40); White Blood Count 17.83 K/ul (4.8-10.8)
[2023-05-30] MEDS: MAGNESIUM OXIDE 400 MG TAB PO SCH (08:12)
[2023-05-30] MEDS: CALCIUM CITRATE 950 MG TAB PO SCH ×3 (08:12→16:59)
[2023-05-30] MEDS: CHOLECALCIFEROL 1,000 UNITS 25 MCG TAB PO SCH (08:13)
[2023-05-30] MEDS: ZINC SULFATE 220 MG CAPSULE PO SCH (08:13)
--- NOTE | 2023-05-30 08:39 | Urology Progress Note ---
Date of Service May 30, 2023 Assessment & Plan (1) Acute right flank pain: (2) Complicated urinary tract infection: (3) S/P ureteral stent placement: Plan: Follow-up of obstructing right ureteral calculi and UTI POD#1 status post emergent right stent placement Subjectively feeling much better today Febrile yesterday, Tmax 38.8, afebrile overnight Labs reviewedcreatinine 2.84, WBC 17.83 Urine culture prelim gram negative bacilli Blood cultures pending Continue broad-spectrum antibiotics and narrow per sensitivity data when available Tolerating right stent with minimal bother Expected clinical course reviewed, all questions answered Will arrange outpatient follow-up with our service to discuss definitive stone treatment after acute infection has resolved will sign off, contact our service with any additional questions or concerns Admission and Anticipated Discharge Date Admission Date: May 29, 2023 Subjective Patient seen and examined at bedside, chart reviewed Subjectively feeling much better this morning Mild flank discomfort Voiding without difficulty Denies dysuria or hematuria Denies nausea, vomiting, fever or chills at present Review of Systems Constitutional: as per Subjective / HPI Gastrointestinal: as per Subjective / HPI Genitourinary: as per Subjective / HPI Physical Exam Constitutional: well developed and well nourished; no acute distress Respiratory: normal respiratory effort; no respiratory distress and no labored breathing Gastrointestinal (Abdomen): Inspection/Auscultation: abdomen normal to inspection; abdomen not distended Musculoskeletal: Head/Neck/Chest: normocephalic Neurologic: moves all extremities and awake Psychiatric: Orientation: alert and oriented x 3 Results & Data Vital Signs (Past 12 Hours) Vital Signs Temp Pulse Pulse Resp BP Pulse Ox O2 Del Method 05/30/23 08:01 36.3 C L 79 16 124/68 97 Room Air 05/30/23 06:06 119/76 05/30/23 06:02 69 05/30/23 03:00 36.9 C 79 18 92/68 L 92 Room Air 05/30/23 00:42 Room Air 05/30/23 00:42 37.6 C H 103 H 18 110/66 93 Room Air 05/29/23 22:00 96 H 05/29/23 22:00 37.4 C 81 18 97/64 L 92 Room Air 05/29/23 21:00 83 PG Care Time/CCT Total # of Minutes Spent Total Time Spent with Patient: Total time spent is greater than 50% in coordination of care (as documented) at patient's floor/unit and/or counseling patient: Coding Level of Care Code 75658 SUB INP/OBS CARE 07/19MIN Diagnoses Acute right flank pain R10.9 Complicated urinary tract infection N39.0 S/P ureteral stent placement Z96.0
[2023-05-30] MEDS: PANTOprazole 40 MG TAB PO PRN (12:16)
[2023-05-30] MEDS: ONDANSETRON INJ 2 MG/ML 2 ML VIAL IV PRN (13:58)
[2023-05-30] MEDS: ERTAPENEM SODIUM 1,000 MG in SYRINGE 0 ML IV SCH (13:59)
[2023-05-30] MEDS: ACETAMINOPHEN 325 MG TAB PO PRN (16:59)
--- NOTE | 2023-05-30 21:11 | Hospitalist Progress Note ---
Date of Service May 30, 2023 Assessment & Plan (1) Complicated urinary tract infection: Plan: Hx of E. coli bacteremia from infected kidney stone in 02/2023. E.coli UTI/bacteremia with a MDR pathogen at that time but was sens to ertapenem. She is growing a GNR once again. Blood cx's are neg, however. Today is day #2 of ertapenem 1g IV. Follow cultures. (2) S/P ureteral stent placement: Plan: POD #1 s/p right-sided ureteral stent placement for multiple stones at the right UVJ. Clinical picture c/w sepsis due to #1, #2. Complicated by mild WENDY. Cont IV abx. Supportive care. can d/c fluids today. (3) Medullary sponge kidney: Plan: Continue zinc, calcium citrate, vitamin D3, magnesium citrate, and potassium ci trate (4) Sepsis: Plan: 2nd to #1, #2 follow blood cx's afebrile today and she is improving (5) WENDY (acute kidney injury): Plan: baseline Cr is about 1.8-1.9 today it is 2.84 likely obstructive in nature +/- sepsis induced ATN supportive care BMP am Plan DVT proph - if she stays beyond tomorrow will add chemical DVT proph Admission and Anticipated Discharge Date Admission Date: May 29, 2023 Subjective patient overall feeling much better today good appetite no dizziness no abd pain no dyspnea no N/V (had such yesterday, none today) denies fevers/ chills tele overnight wnl Review of Systems Review of Systems: gen - no fevers or chills; energy better today cv - no cp pulm - no dyspnea or DOSHI GI - no abd pain or back pain Physical Exam Physical Exam: gen - NAD, pleasant mouth - MM slightly dry neck - no JVD heart - RRR, s1 s2, no murmur lungs - CTA b/l abd - soft NT ND BS+ ext - no edema, pulses 2+ b/l psych - a/o x 3 Results & Data Results & Data Vital Signs (Past 12 Hours) Vital Signs Temp Pulse Pulse Resp BP Pulse Ox O2 Del Method 05/30/23 20:01 36.4 C L 88 18 81/54 L 91 Room Air 05/30/23 18:58 05/30/23 15:29 37.0 C 86 16 119/76 93 Room Air 05/30/23 14:31 79 05/30/23 11:45 37.0 C 79 16 115/76 97 Room Air O2 Del Method 05/30/23 20:01 05/30/23 18:58 Room Air 05/30/23 15:29 05/30/23 14:31 05/30/23 11:45 Laboratory Results Laboratory Results - last 24 hr 05/30/23 04:23 WBC 17.83 H D RBC 3.98 L Hgb 12.2 Hct 37.2 MCV 93.5 MCH 30.7 MCHC 32.8 RDW Std Deviation 48.4 H RDW Coeff of [place] 14.0 Plt Count 145 MPV 9.6 Immature Gran % (Auto) 1.4 Neut % (Auto) 86.7 Lymph % (Auto) 4.2 [place] % (Auto) 7.2 Eos % (Auto) 0.1 Baso % (Auto) 0.4 Neut # (Auto) 15.47 H Lymph # (Auto) 0.75 L [place] # (Auto) 1.28 H Eos # (Auto) 0.01 Baso # (Auto) 0.07 Immature Gran # (Auto) 0.25 H Sodium 140 Potassium 3.9 Chloride 112 H Carbon Dioxide 21 Anion Gap 7 BUN 34 H Creatinine 2.84 H D Est Cr Clr Drug Dosing 27.4 Est GFR ( Amer) 20.1 Est GFR (Non-Af Amer) 17.3 BUN/Creatinine Ratio 12.0 Glucose 112 H Calcium 8.7 Magnesium 1.9 Diagnostic Findings urine cx - GNR, >100,000 CFU PG Care Time/CCT Total # of Minutes Spent Total Time Spent with Patient: Total time spent is greater than 50% in coordination of care (as documented) at patient's floor/unit and/or counseling patient: Coding Level of Care Code 65713 SUB INP/OBS CARE 1/25MIN Diagnoses Complicated urinary tract infection N39.0 S/P ureteral stent placement Z96.0 Medullary sponge kidney Q61.5 Sepsis A41.9 WENDY (acute kidney injury) N17.9
[2023-05-31 05:23] LABS: Hematocrit (blood only) 37.7 % (37.0-47.0); Hemoglobin 12.5 g/dl (12.0-16.0); Mean Corpuscular Hemoglobin 30.7 pg (25.0-34.0); Mean Corpuscular Hgb Conc 33.2 g/dL (32.0-36.0); Mean Corpuscular Volume 92.6 fL (80.0-100.0); Mean Platelet Volume 10.1 fL (9.4-12.4); Platelet Count 137 K/uL (130-400); Red Blood Count 4.07 M/uL (4.20-5.40)
[2023-05-31 05:35] LABS: BUN Creatinine Ratio 13.9 (10-20); Calcium 9.5 mg/dl (8.6-10.3); Creatinine Clr Calc Pharmacy 28.4 ml/min; Est GFR (Non-African American) 18.1 ml/min; Potassium 3.7 mmol/L (3.5-5.1)
[2023-05-31 05:46] LABS: Basophils # (auto) 0.07 K/uL (0.00-0.20); Basophils % (auto) 0.5 %; Dohle Bodies 1+; Eosinophils # (auto) 0.32 K/uL (0.00-0.50); Eosinophils % (auto) 2.3 %; Immature Granulocytes # (auto) 0.33 K/uL (0.01-0.20); Immature Granulocytes % (auto) 2.4 %; Lymphocytes # (auto) 1.41 K/uL (1.20-3.40); Lymphocytes % (auto) 10.1 %; Monocytes # (auto) 0.69 K/uL (0.11-0.59); Monocytes % (auto) 4.9 %; Neutrophils # (auto) 11.18 K/uL (1.40-6.50); Neutrophils % (auto) 79.8 %
[2023-05-31] MEDS: PANTOprazole 40 MG TAB PO PRN (09:51)
[2023-05-31] MEDS: CALCIUM CITRATE 950 MG TAB PO SCH ×3 (09:51→15:15)
[2023-05-31] MEDS: ZINC SULFATE 220 MG CAPSULE PO SCH (09:52)
[2023-05-31] MEDS: MAGNESIUM OXIDE 400 MG TAB PO SCH (09:52)
[2023-05-31] MEDS: CHOLECALCIFEROL 1,000 UNITS 25 MCG TAB PO SCH (09:52)
[2023-05-31] MEDS: ERTAPENEM SODIUM 1,000 MG in SYRINGE 0 ML IV SCH (15:15)
[2023-05-31] MEDS: ONDANSETRON INJ 2 MG/ML 2 ML VIAL IV PRN (15:15)
[2023-05-31] MEDS: HEPARIN SOD 5,000 UNIT/0.5 ML VIAL SQ SCH (20:38)
--- NOTE | 2023-05-31 20:43 | Hospitalist Progress Note ---
Date of Service May 31, 2023 Assessment & Plan (1) Complicated urinary tract infection: Plan: Hx of E. coli bacteremia from infected kidney stone in 02/2023. Urine cx with e coli - MDR, but not ESBL. Blood cx's remain neg fortunately. WBC count slowly improving. Creatinine slowly improving. She had what sounds like anaphylaxis to PCN but has had rocephin based on records. Day #3 of ertapenem 1g IV. Will leave ertapenem for now. Plan ID consult tomorrow - should entire course be IV given the obstructing stone, sepsis, etc? Or could we consider 3rd generation cephalosporin at d/c and Rx for ~10-14 days (likely with element of pyelonephritis - during her cystoscope with stent placement there was purulent urine that was flowing from the R kidney per operative note). (2) S/P ureteral stent placement: Plan: POD #2 s/p right-sided ureteral stent placement for multiple stones at the right UVJ. Clinical picture c/w sepsis due to #1, #2. Likely an element of right-sided pyelonephritis - see #1 above. Complicated by mild WENDY. Cont IV abx. Supportive care. ID consult tomorrow. Doing well from urology standpoint. Definitive stone management will be undertaken post-d/c. (3) Medullary sponge kidney: Plan: Continue zinc, calcium citrate, vitamin D3, magnesium citrate, and potassium citrate She is currently getting mag oxide - will d/c, and change to the mag citrate (4) Sepsis: Plan: 2nd to #1, #2 blood cx's negative again afebrile today and continuing to slowly improve (5) WENDY (acute kidney injury): Plan: baseline Cr is about 1.8-1.9 peak Cr 2.84 Cr today 2.7 likely obstructive in nature + sepsis induced ATN supportive care BMP am Plan DVT proph - add heparin 5000 BID left message for pt's on his voicemail this evening Admission and Anticipated Discharge Date Admission Date: May 29, 2023 Subjective patient sitting in chair during the visit feeling better today not as tired good appetite no dysuria or hematuria no flank or abd pain urine w/o foul smell like previous no dizziness with standing/walking Review of Systems Review of Systems: gen - no fevers or chills cv - no chest pain pulm - no dyspnea or DOSHI GI - 1 episode of diarrhea but no other episodes Physical Exam Physical Exam: gen - NAD, pleasant, looks good today mouth - MMM neck - no JVD heart - RRR, s1 s2, no murmur lungs - CTA b/l abd - soft NT ND BS+ ext - no edema, pulses 2+ b/l psych - a/o x 3 Results & Data Results & Data Vital Signs (Past 12 Hours) Vital Signs Temp Pulse Pulse Resp BP Pulse Ox O2 Del Method 05/31/23 19:48 36.9 C 70 18 120/80 94 Room Air 05/31/23 17:26 81 05/31/23 16:24 36.6 C 76 18 119/77 93 Room Air 05/31/23 12:08 36.7 C 70 18 133/83 97 Room Air Laboratory Results Laboratory Results 05/31/23 04:36 WBC 14.00 H RBC 4.07 L Hgb 12.5 Hct 37.7 MCV 92.6 MCH 30.7 MCHC 33.2 RDW Std Deviation 48.0 H RDW Coeff of [place] 14.0 Plt Count 137 MPV 10.1 Immature Gran % (Auto) 2.4 Neut % (Auto) 79.8 Lymph % (Auto) 10.1 [place] % (Auto) 4.9 Eos % (Auto) 2.3 Baso % (Auto) 0.5 Neut # (Auto) 11.18 H Lymph # (Auto) 1.41 [place] # (Auto) 0.69 H Eos # (Auto) 0.32 Baso # (Auto) 0.07 Immature Gran # (Auto) 0.33 H Dohle Bodies 1+ Sodium 143 Potassium 3.7 Chloride 113 H Carbon Dioxide 23 Anion Gap 7 BUN 38 H Creatinine 2.74 H Est Cr Clr Drug Dosing 28.4 Est GFR ( Amer) 21.0 Est GFR (Non-Af Amer) 18.1 BUN/Creatinine Ratio 13.9 Glucose 69 L Calcium 9.5 Diagnostic Findings Microbiology 05/29/23 20:10 Blood Aerobic Blood Culture - Preliminary No growth in Aerobic bottle after 48 hours. 05/29/23 20:10 Blood Anaerobic Blood Culture - Preliminary No growth in Anaerobic bottle after 48 hours. 05/29/23 20:22 Blood Aerobic Blood Culture - Preliminary No growth in Aerobic bottle after 48 hours. 05/29/23 20:22 Blood Anaerobic Blood Culture - Preliminary No growth in Anaerobic bottle after 48 hours. 05/29/23 Unknown Urine,Clean Catch Urine Culture - Final Escherichia coli PG Care Time/CCT Total # of Minutes Spent Total Time Spent with Patient: Total time spent is greater than 50% in coordination of care (as documented) at patient's floor/unit and/or counseling patient: Coding Level of Care Code 00174 SUB INP/OBS CARE 2/35MIN Diagnoses Complicated urinary tract infection N39.0 S/P ureteral stent placement Z96.0 Medullary sponge kidney Q61.5 Sepsis A41.9 WENDY (acute kidney injury) N17.9
[2023-06-01 06:33] LABS: Hematocrit (blood only) 40.2 % (37.0-47.0); Mean Corpuscular Hemoglobin 30.3 pg (25.0-34.0); Mean Corpuscular Hgb Conc 32.3 g/dL (32.0-36.0); Mean Corpuscular Volume 93.7 fL (80.0-100.0); Mean Platelet Volume 10.3 fL (9.4-12.4); Platelet Count 151 K/uL (130-400); RDW Coefficient of Variation 13.4 % (11.5-14.5); RDW Standard Deviation 45.9 fL (36.4-46.3); Red Blood Count 4.29 M/uL (4.20-5.40); White Blood Count 9.18 K/ul (4.8-10.8)
[2023-06-01 06:59] LABS: BUN Creatinine Ratio 15.2 (10-20); Calcium 9.7 mg/dl (8.6-10.3); Creatinine Clr Calc Pharmacy 34.9 ml/min; Est GFR (African American) 26.9 ml/min; Est GFR (Non-African American) 23.2 ml/min; Potassium 4.1 mmol/L (3.5-5.1)
[2023-06-01 07:09] LABS: Basophils # (auto) 0.05 K/uL (0.00-0.20); Basophils % (auto) 0.5 %; Eosinophils # (auto) 0.24 K/uL (0.00-0.50); Eosinophils % (auto) 2.6 %; Immature Granulocytes # (auto) 0.03 K/uL (0.01-0.20); Immature Granulocytes % (auto) 0.3 %; Lymphocytes % (auto) 15.3 %; Monocytes # (auto) 0.58 K/uL (0.11-0.59); Monocytes % (auto) 6.3 %; Neutrophils # (auto) 6.88 K/uL (1.40-6.50)
[2023-06-01] MEDS: CHOLECALCIFEROL 1,000 UNITS 25 MCG TAB PO SCH (08:31)
[2023-06-01] MEDS: HEPARIN SOD 5,000 UNIT/0.5 ML VIAL SQ SCH (08:31)
[2023-06-01] MEDS: ZINC SULFATE 220 MG CAPSULE PO SCH (08:31)
[2023-06-01] MEDS: PANTOprazole 40 MG TAB PO PRN (08:31)
[2023-06-01] MEDS: MAGNESIUM OXIDE 400 MG TAB PO SCH (08:32)
[2023-06-01] MEDS: CALCIUM CITRATE 950 MG TAB PO SCH ×2 (08:32→11:46)
[2023-06-01] MEDS ORDERED: MAGNESIUM CITRATE 296 ML/BTL PO SCH (09:00)
--- NOTE | 2023-06-01 13:37 | Discharge Summary ---
Date of Service date of admission - May 29, 2023 date of discharge - June 01, 2023 Admission HPI Per Admitting Provider Kailyn is a 58-year-old female with PMH of medullary sponge kidney, and E. coli bacteremia from infected kidney stone. She presented for right flank pain that came on acutely at 0800 on the morning of 05/29. She took 2.5 mg of Dilaudid at 1030, which had previously been given for kidney stones. She described the pain as burning, constant; rated 15 out of 10. The pain is worse when standing up, and alleviated by lying flat. She ate at 5 AM, but has not eaten since. CT abdomen/pelvis revealed multiple stones in the right UVJ. Patient was taken to the OR with Dr. Greonimo shortly after arrival in the ED, and had a cystoscopy with right ureteral stent placement. Postop, she reports no pain. History of kidney stones, with prior stent placement. She reports that she took all of her morning medications, and that there were no recent changes to medications. Denies history of trauma to the back or pelvis. Patient is mildly hypertensive at 157/98 at 1655 on 05/29 following procedure; SPO2 at 94% on RA; vitals otherwise stable. ED course: Ertapenem 10 mL IV Zofran 4 mg NSS 1000 mL ROS: Patient endorses dry cough, nausea, multiple episodes vomiting that began the morning of 05/29, right flank pain, and foul-smelling urine. Patient denies fever, headache, CP, SOB, abdominal pain, back pain, hematuria, burning with urination, saddle anesthesia, or numbness or tingling going down the legs. Patient denies PMH of VA, DVT/PE, or cancer Principal Diagnosis 1. Sepsis 2nd to complicated UTI/pyelonephritis + obstructing right-sided kidney stone 2. Medullary sponge kidney 3. WENDY in setting of CKD Discharge Exam gen - NAD, pleasant, looks very good mouth - MMM neck - no JVD heart - RRR, s1 s2, no murmur lungs - CTA b/l abd - soft NT ND BS+; no flank tenderness to palpation ext - no edema, pulses 2+ b/l psych - a/o x 3 Discharge Data Allergies Allergy/AdvReac Type Severity Reaction Status Date / Time Iodinated Contrast Media Allergy Severe Difficulty Verified 04/06/23 07:08 Breathing lactose Allergy Severe (dairy) Verified 04/06/23 07:08 Difficulty Breathing penicillin G Allergy Severe breathing Verified 04/06/23 07:08 difficulty Sulfa (Sulfonamide Allergy Severe Difficulty Verified 04/06/23 07:08 Antibiotics) Breathing adhesive tape Allergy Mild itching Verified 04/06/23 07:08 latex Allergy Mild Rash Verified 04/06/23 07:08 soy Allergy Unknown Unknown Verified 04/06/23 07:08 midazolam [From Versed] AdvReac Intermediate "i just Verified 04/06/23 07:08 get a lot of vomiting" Consultations [facility] Urology Telehealth Infectious Diseases Procedures Performed Operation Date: 05/29/23 14:50 Actual Procedures Cystoscopy, Retrograde Pyelogram, Right Stent Placement - Lance Geronimo MD Ordered Studies Abdomen Fluoroscopy 05/29/23 00:00 FL KUB CLINICAL HISTORY: RT CYSTO STENT TECHNIQUE: 1 views were obtained with the C-arm in the OR with the above procedure. Total fluoroscopy time was 3.3 seconds. Radiation dose was 0.99 mGy. Comparison: Comparison is made to CT abdomen pelvis 05/29/2023 FINDINGS/IMPRESSION: Intraoperative images were obtained of right cystogram and stent placement. In the final images, the stent is in satisfactory position. Please correlate with intraoperative fluoroscopy and operative report. ACT 112: Negative or not required by law. Electronically signed by: Jose Goel M.D. 05/29/2023 7:50 PM Abdomen/Pelvis CT 05/29/23 12:[address] WITHOUT CONTRAST CT DOSE: 1563.68 mGy.cm HISTORY: right flank pain TECHNIQUE: Multiaxial CT images of the abdomen and pelvis were performed without contrast. A dose lowering technique was utilized adhering to the principles of ALARA. COMPARISON STUDY: Abdomen and pelvis CT 03/21/2023. FINDINGS: There is a cluster of small stones within the right ureterovesical junction with the largest on image 350 measuring 4 mm resulting in moderate right hydroureteronephrosis. There is a punctate nonobstructing stone within the proximal right ureter on image 211 and an 8 x 5 mm stone within the mid right ureter on image 220. These may also account for the right-sided hydronephrosis. No left ureteral calculi or left-sided hydronephrosis. There is a punctate stone within the bladder on image 357. Small focus of gas within the bladder may be due to prior catheterization. No bladder wall thickening. Calcifications seen throughout the medullary pyramids and multiple bilateral renal calculi consistent with medullary nephrocalcinosis. This remains unchanged. There is mild right perinephric edema. This is likely reactive. Multifocal left cortical renal scarring again noted. Mild dependent changes seen within the lung bases. No pneumoperitoneum. No pneumatosis. No acute fractures identified. A stable 7 mm hypodense lesion within the right hepatic dome. This is incompletely characterized on this noncontrast study but favors a cyst. There is a punctate gallstone noted. No gallbladder wall thickening. The unenhanced pancreas, spleen, and adrenal glands are unremarkable. No retroperitoneal lymphadenopathy. Normal caliber abdominal aorta. No pelvic lymphadenopathy or pelvic free fluid. The uterus and adnexa are unremarkable. No bowel wall thickening or obstruction. Normal appendix. IMPRESSION: 1. Multiple stones within the right ureter/ureterovesical junction resulting in moderate right hydroureteronephrosis. 2. Multiple bilateral renal calculi with associated medullary nephrocalcinosis. 3. Cholelithiasis. 4. Additional findings as described above. ACT 112: Negative or not required by law. Electronically signed by: Geremias Coburn M.D. 05/29/2023 1:14 PM Hospital Course (1) Complicated urinary tract infection: Patient presented with sepsis 2nd to complicated e.coli UTI/probable right-sided pyelonephritis in the setting of obstructing kidney stones on the right. She has a past history of E. coli bacteremia from an infected kidney stone in 02/2023. Urine cx this admission with e coli - MDR, but not ESBL. Blood cx's remained negative fortunately. WBC count normalized while here. The patient received 4 days of IV antibiotic therapy while hospitalized and, per ID recommendations, will complete 6 days of oral cefpodoxime 400mg twice daily upon return home. She underwent ureteral stent placement on the right side per #2 below. (2) S/P ureteral stent placement: Patient had evidence of obstructing right-sided kidney stones on admission CT a/p. This was in the setting of UTI/sepsis. [facility] Urology was consulted and she was taken for urgent cystoscopy. She underwent right-sided ureteral stent placement by Dr Stiven Geronimo. During stent placement Dr Geronimo commented that the urine flowing from the right kidney appeared purulent. She likely had an element of right-sided pyelonephritis as noted above. Patient's hospital course was complicated by mild WENDY (see below). Definitive stone and stent management will be undertaken post-d/c by Dr Geronimo. (3) Medullary sponge kidney: Continue zinc, calcium citrate, vitamin D3, magnesium citrate, and potassium citrate as previous. Unfortunately the medullary sponge kidney has led to too numerous to count kidney stones requiring frequent intervention. (4) Sepsis: 2nd to #1 blood cx's negative (5) WENDY (acute kidney injury): baseline Cr is about 1.8-1.9 peak Cr 2.84 Cr at discharge 2.2 likely obstructive in nature + sepsis induced ATN if patient's creatinine remains about 2 or higher I suggested she follow with nephrology in addition to urology to follow her renal function over time she will need repeat BMP in about 5-7 days post-discharge to ensure stability (6) Penicillin allergy: infectious diseases recommended a visit to an kindergarten aide to undergo PCN allergy testing due to frequent UTIs it would be advantageous to know if she has a true PCN allergy she can also be tested for sulfa allergy to that end an appointment has been made with Dr Sophie Perez in [place] (7) Chronic renal failure (CRF), stage 3b: 2nd medullary sponge kidney baseline Cr about 1.8 to 1.9 based on records (8) Gallstones: seen incidentally on CT abd/pelvis no Rx needed at this time Total Time Total Time Spent Total Time Spent (In Minutes): 40 Discharge Plan Discharge Items Patient Disposition: Home - Self-Care Reason For Visit: Kidney stones Discharge Diagnosis: 1. right-sided kidney stones with stent placement by Dr Lance Geronimo 2. urinary tract infection with probable kidney infection on the right 3. sepsis due to #2 - resolved 4. acute "kidney injury" (rise in creatinine level) - due to #1 and #3 - improved; discharge creatinine level 2.2 5. chronic kidney disease / medullary sponge kidney 6. incidental note of a gallstone in your gall bladder on CT scan - nothing to do for this at this time Activity: As commented below Activity Comment: gradually increase your activities over the next week Non-emergency contact: Primary Care Provider and Specialist Call non-emergency contact if: you have any medication questions, your symptoms worsen, your pain is not controlled, your pain is worsening and you have a fever Follow-up/Referrals: Lance Geronimo MD [Physician] - (THE OFFICE WILL REACH OUT TO YOU TO SCHEDULE A FOLLOW-UP APPOINTMENT) Sophie Perez MD [Outside Practitioners] - 06/07/23 2:30 pm (THIS APPOINTMENT WILL BE WITH DR ZIMMERMAN) Arvin Weller MD [Primary Care Provider] - (PLEASE CALL YOUR PRIMARY CARE PROVIDER TO SCHEDULE A HOSPITAL DISCHARGE FOLLOW-UP APPOINTMENT WITHIN 7-10 DAYS) Diet: Gluten Free and Lactose Intolerant Addtl Attending Provider Instructions: Mrs Jones, Roman were treated for sepsis due to urinary tract infection. The sepsis/urinary infection occurred as a result of several kidney stones in the right ureter. Dr Geronimo took you to the operating room and placed a stent in the right ureter. There is a good chance that the right kidney was infected as well. You improved nicely with IV fluids, IV antibiotics, and supportive care. Your creatinine (kidney function level) was elevated during the stay. It peaked at 2.8 and improved to 2.2 before discharge home. Based on records it seems that your "baseline" creatinine is about 1.8. Recommendations - 1. Antibiotics - cefpodoxime 400mg twice daily x 6 days, first dose TOMORROW AM. 2. Probiotics daily x 7 days - start today; may help prevent diarrhea from your antibiotics. 3. Please have your family doctor repeat a BMP (basic metabolic panel) in about 5-7 days. This is to make sure your creatinine continues to improve. 4. If your creatinine remains ~2 or higher chronically please consider establishing care with a brine plant operator to follow your creatinine over time. 5. Follow-up - see separate section. We have set you up with ENT/allergy to discuss allergy testing and to see if you have ongoing penicillin allergy. Return to any hospital if - * you have fevers over 100 degrees * you develop severe diarrhea * you have abdominal pains, flank pain, or back pain * you see large amounts of blood in your urine * any other concerns It was our pleasure caring for you! Pending Studies at Discharge: No Stand-Alone Forms: My Thryve, Smoking Cessation Medications and DC Order Prescriptions: New Saccharomyces boulardii 250 mg capsule 250 mg PO DAILY 7 Days Qty: 7 0RF Rx Instructions: start 06/01/23. Continued calcium citrate 250 mg calcium tablet 250 mg PO TIDM zinc 50 mg tablet 50 mg PO QAM cholecalciferol (vitamin D3) 25 mcg (1,000 unit) capsule 25 mcg PO QAM magnesium citrate 100 mg tablet 100 mg PO TIDM potassium citrate 99 mg capsule 99 mg PO TIDM Discharge Orders: Discharge Order (Routine); Ordered 06/01/23 Ordered By: Osmin Batista Admission Data Admit Date/Time: 05/29/23 16:01 Attending Provider: Osmin Batista Admit Provider: Osmin Viera Primary Care Provider: Arvin Weller Other Providers: Lance Geronimo; Chrissy Aranda; Jose G Coleman Other Interventions: Discharge Summary Assessment (RN) Last Done: 06/01/23 15:13 Coding Level of Care Code 80414 INP/OBS DISCH >30 MIN Diagnoses Complicated urinary tract infection N39.0 S/P ureteral stent placement Z96.0 Medullary sponge kidney Q61.5 Sepsis A41.9 WENDY (acute kidney injury) N17.9 Penicillin allergy Z88.0 Chronic renal failure (CRF), stage 3b N18.32 Gallstones K80.20
[2023-06-01] MEDS: ERTAPENEM SODIUM 1,000 MG in SYRINGE 0 ML IV SCH (14:35)
--- NOTE | 2023-06-01 15:36 | Infectious Disease Consult ---
Date of Consultation June 01, 2023 Assessment & Plan (1) Hydronephrosis, right: (2) Complicated urinary tract infection: (3) S/P ureteral stent placement: (4) Pyelonephritis due to Escherichia coli: (5) Recurrent nephrolithiasis: Plan Kailyn Jones is a 58-year-old woman with history of medullary sponge kidney c/b recurrent nephrolithiasis, history of recurrent UTIs including E. coli bacteremia and L ureteral stone s/p stent 02/2023, who presents with R flank pain, found to have E. coli pyelonephritis and multiple UVJ stones s/p R ureteral stent on 05/29/23. ID is consulted for E. coli pyelonephritis. UCx growing E. coli. Has had rapid clinical improvement after ureteral stent placement, and with negative BCx. Has already received 4d of IV abx and can transition to PO. She has a history of recurrent nephrolithiasis and would ensure urology follow-up (may have outpatient lithotripsy and eventually with stent removal). Note that this E. coli isolate has a relatively high CARL to cefazolin, though there are different breakpoints in the urine than in the blood. Have discussed with ID pharmacist and will choose cefpodoxime for remainder of pyelo treatment course (better renal penetration than cefdinir and will avoid cefadroxil given higher cefazolin CARL). If will be discharging, can stop ertapenem and change to cefpodoxime 400 mg PO BID to complete a 10-day course for pyelonephritis (05/28-06/07/23). Patient also with remote history of penicillin reaction (rash/hives as a child), would recommend patient see allergy for skin testing and reevaluation, to potentially expand antibiotic options for the future given her recurrent UTIs. Has had documented tolerance to cephalosporins (ceftriaxone 03/21/23). ID Problem List: 1.Sepsis 2/2 E. coli UTI/pyelonephritis 2.Nephrolithiasis with obstruction s/p ureteral stenting 3.History of recurrent UTIs 4.History of E. coli bacteremia 5.History of penicillin allergy Recommendations: - If will be discharging, can stop ertapenem and change to cefpodoxime 400 mg PO BID to complete a 10-day course for pyelonephritis (05/28-06/07/23) - Patient to follow up with urology for outpatient definitive stone treatment, at the time can use ceftriaxone for periprocedural ppx - Referral to outpatient allergy for penicillin testing Plan discussed with hospitalist. Thank you for letting ID participate in the care of this patient. ID will sign off at this time. If questions, please contact the [facility] call center at [phone]. Chrissy Aranda MD, [facility] Infectious Diseases [facility] direct line: [phone] Consultation Information Consultation was provided via telemedicine using two-way real-time interactive telecommunication between the patient and the telemedicine provider. For the duration of the visit, the provider was performing the assessment from a different facility than the patient. This includesuse of bluetooth stethoscope forauscultationperformed by the telepresenter that the telemedicine provider can hear if described in the physical exam. Motor Vehicle Escort Driver contact information: Please call [facility] Call Center [phone]. (Phone Number For Physician Use Only) After establishing a telemedicine visit, patient was: Patient was verified with two unique identifiers, Patient/authorized rep acknowledged consent and understanding and Gave permission to continue telehealth session Time Spent with Patient: Initial => 75 min History of Present Illness Reason for Consultation: E. coli UTI, pyelonephritis, nephrolithiasis Attending Physician: Osmin Batista MD History of Present Illness Kailyn Jones is a 58-year-old woman with history of medullary sponge kidney c/b recurrent nephrolithiasis, history of recurrent UTIs including E. coli bacteremia and L ureteral stone s/p stent 02/2023, who presents with R flank pain, found to have E. coli pyelonephritis and multiple UVJ stones s/p R ureteral stent on 05/29/23. ID is consulted for E. coli pyelonephritis. She was recently admitted 02/2023 for E. coli bacteremia 2/2 UTI, at which time she had a L ureteral stone and underwent L ureteral stent placement. She was treated with IV ceftriaxone -> PO cefdinir On 05/29/23, she developed pain @ 0800 that was burning and constant, worse with standing and alleviated somewhat by laying flat. She also developed low-grade fevers. She presented to the ED initially febrile (05/29 TMax 38.8). WBC 5.8. 05/29 UA: >30 WBCs, 10-30 RBCs, 20-30 squams, 2+ bacteria. CT A/P revealed m ultiple stones in the right UVJ, R perinephric stranding, and moderate hydronephrosis. She went to the OR with urology and underwent a cystoscopy with right ureteral stent placement. Per urology, plan for outpatient lithotripsy and eventual stent removal. Since admission, she feels much better. She says she felt the stones shift around and are no longer causing pain, now only 2/10 discomfort remaining. Her urine has cleared up and is no longer malodorous. The patient does not take long-term antibiotics for prophylaxis and has not taken abx since her last hospitalization. No steroids or immunosuppressive medications. She has worked with a retail wireless sales representative regarding dietary oxalate and has reduced stone formation somewhat on this. She passes stones frequently. She works to stay hydrated. Of note, the patient reports worsened acid reflux while on abx and takes Protonix sometimes while on abx. The patient reports that her penicillin reaction was in the 1960s-70s as a child, possibly hives, does not recall any serious reaction nor airway symptoms. Has documented tolerance of ceftriaxone in the past (documented as given 03/21/23). Her sulfa allergy is throat swelling. Allergies Allergy/AdvReac Type Severity Reaction Status Date / Time Iodinated Contrast Media Allergy Severe Difficulty Verified 04/06/23 07:08 Breathing lactose Allergy Severe (dairy) Verified 04/06/23 07:08 Difficulty Breathing penicillin G Allergy Severe breathing Verified 04/06/23 07:08 difficulty Sulfa (Sulfonamide Allergy Severe Difficulty Verified 04/06/23 07:08 Antibiotics) Breathing adhesive tape Allergy Mild itching Verified 04/06/23 07:08 latex Allergy Mild Rash Verified 04/06/23 07:08 soy Allergy Unknown Unknown Verified 04/06/23 07:08 midazolam [From Versed] AdvReac Intermediate "i just Verified 04/06/23 07:08 get a lot of vomiting" Home Medications Medication Instructions Recorded Confirmed Type cholecalciferol (vitamin D3) 25 25 mcg PO QAM 01/19/22 05/29/23 History mcg (1,000 unit) capsule magnesium citrate 100 mg tablet 100 mg PO TIDM 01/19/22 05/29/23 History zinc 50 mg tablet 50 mg PO QAM 01/19/22 05/29/23 History potassium citrate 99 mg capsule 99 mg PO TIDM 05/01/22 05/29/23 History calcium citrate 250 mg PO TIDM 08/30/22 05/29/23 History Saccharomyces boulardii 250 mg 250 mg PO DAILY 7 days #7 caps 06/01/23 Rx capsule cefpodoxime 200 mg tablet 400 mg (2 x 200 mg) PO BID 6 days 06/01/23 Rx #24 tabs Patient History Medical History (Updated 06/01/23 @ 15:42 by Chrissy Aranda MD) WENDY (acute kidney injury) Sepsis Bacteremia Discharge planning issues DVT prophylaxis Fever Left ureteral stone History of COVID-19 diagnosed 2019--mild symptoms, no symptoms now Benign positional vertigo IBS (irritable bowel syndrome) Atelectasis per pt was a hx, had had to use an incentive spirometry--no issues currently (states she rides her bike 30 miles without any breathing issues) History of anesthesia reaction 04/2019 "intubation induced apnea" @ [facility] in [place] was told this during cystoscopy--per pt has had 2 cystoscopy procedures since then with no issues at all Nephrolithiasis Medullary sponge kidney Dilatation of left ureter History of nephrolithiasis Surgical History (Updated 05/29/23 @ 17:35 by Geremias Lock PA-C) History of dilatation and curettage History of bilateral tubal ligation History of strabismus surgery left History of cystoscopy multiple--started in 2013 "more than a dozen". cysto, L stent 03/21/23 emerge ntly : MAC without issue H/O lithotripsy multiple. cysto, litho 01/09/23: [place]: LMA#4 without issue Family History Family/Other Kidney stones Cancer Hypertension Mother Family history of reaction to anesthesia 1973 radical mastectomy--had difficulty time waking her Sister Family history of reaction to anesthesia difficulty waking/nausea Social History Smoking Status: Never smoker Second Hand Exposure: No; Do You Dip or Chew Tobacco: No; Hx Alcohol Use: No Hx Substance Use: No Preferred Language: Vincentian Communication Ability: Effective Human Resources Advisor Required: No Beliefs That Will Affect Care: None Current Living Situation: Spouse and Family Current Living Situation Comment: Lives with and 25yr old son Other Information That Helps Us Care for You: No Feels Safe at Home: Yes Safety Concerns: Feels Safe At This Time Assistive Devices: None Physical Exam Physical Exam: Exam obtained with aid of in-person telepresenter. General: Well-appearing, no acute distress HEENT: Conjunctivae non-injected, sclerae anicteric, MMM, OP clear. Respirations nonlabored. Abd: Soft, nontender, nondistended. Normal bowel sounds throughout. No masses or organomegaly. : No suprapubic tenderness. Minimal flank tenderness. Ext: Warm and well-perfused, no edema. No joint warmth or effusions noted. Skin: No rashes or lesions. Neuro: Alert & interactive. Grossly non-focal. Psych: Pleasant, appropriate. Results & Data Vital Signs (Past 12 Hours) Vital Signs Temp Pulse Pulse Pulse Resp BP BP 06/01/23 15:13 36.6 C 75 70 20 108/79 121/76 06/01/23 11:41 36.6 C 70 20 108/79 06/01/23 07:52 36.5 C 65 18 127/85 06/01/23 07:46 91 H 06/01/23 04:02 36.8 C 75 18 114/73 Pulse Ox O2 Del Method 06/01/23 15:13 97 06/01/23 11:41 97 Room Air 06/01/23 07:52 94 Room Air 06/01/23 07:46 06/01/23 04:02 93 Room Air Diagnostic Findings Diagnostics: 05/29 CT A/P 1. Multiple stones within the right ureter/ureterovesical junction resulting in moderate right hydroureteronephrosis. 2. Multiple bilateral renal calculi with associated medullary nephrocalcinosis. 3. Cholelithiasis. 4. Additional findings as described above. Micro Summary: 05/29 UCx: E. coli (S-cefazolin CARL 8 cefepime CARL <=2 ceftriaxone CARL S<=1. R-Bactrim/ciprofloxacin/levofloxacin) 05/29 UA: >30 WBCs, 10-30 RBCs, 20-30 squams, 2+ bacteria 05/29 BCx x2 NGTD Prior 03/28 UCx: E. faecalis 03/21 BCx x2: E. coli 03/21 UCx: E. coli 05/01/22 UCx: E. coli 01/23/22 UCx: E. coli Antibiotic Summary: ertapenem (05/29-present)
--- NOTE | 2023-06-07 08:42 | Coding Query ---
CODING QUERY To promote full compliance with coding requirements relating to patient care, provider participation is requested in all cases of natural resource officer uncertainty. Please assist us with the question(s) below: Coding Question(s): Sepsis is documented in the record and the H&P documents, " Sepsis: Present on Admission?: No", and, "Sepsis criteria met only after ureteral stent placement", and the 05/30 Progress Note documents, "Clinical picture c/w sepsis due to #1, #2", and, " Sepsis: Plan: 2nd to #1, #2", and there is diagnosis of Complicated urinary tract infection beside the 1, and beside 2 is S/P ureteral stent placement, and the Infectious Disease consultation on 06/01 documents, regarding Sepsis, "Sepsis 2/2 E. coli UTI/pyelonephritis", and the Discharge Summary (currently in Draft status) documents, under hospital course, documents as in the 05/30 Progress Note, and also documents, under Discharge Plan, Discharge Diagnosis, " Discharge Diagnosis: 1. right-sided kidney stones with stent placement by Dr Lance Geronimo 2. urinary tract infection with probable kidney infection on the right 3. sepsis due to #2 - resolved". Documentation is clear that the Sepsis is due to the urinary tract infection with probable kidney infection on the right, however, it is not clear if the Sepsis is also due to complication of Sepsis due to the procedure or the ureteral stent. Please specify below, in your clinical opinion, regarding complication from procedure or from ureteral stent in relation to cause of Sepsis: ( x ) Sepsis is likely due to UTI with probable kidney infection of the right only, and NOT likely due to any Complication of procedure or ureteral stent ( ) Sepsis is likely also due to possible complication of the procedure, in addition to being likely due to uti/probable kidney infection of the right ( ) Sepsis is likely also due to possible complication of the ureteral stent, in addition to being likely due to uti/probable kidney infection of the right ( ) Other: Please Specify Physician's Response(s): Thank you Leidy Valdes Principal Diagnosis: "that condition established after study, to be chiefly responsible for occasioning the admission of the patient to the hospital for care." Co-Existing Principal Diagnosis: "when two or more diagnoses equally meet the criteria for principal diagnosis as determined by the circumstances of admission, diagnostic work up, and/or therapy provided, and the Alphabetic Index, Tabular List, or another coding guideline does not provide sequencing direction, any one of the diagnoses may be sequenced first." "When the physician has documented what appears to be a current diagnosis in the body of the record, but has not included the diagnosis in the final diagnostic statement, the physician should be asked whether the diagnosis should be added." (Source [facility] 2 QTR90. p3-4) [facility]
== END 2023-06-01 18:15 | disposition home or self-care (01) | DRG 659 ==
LOC: ED 12:19 → OR 15:06 → SUATTDRO 16:01 → 2W 16:01
DX: Z87.440 Personal history of urinary (tract) infections; Z91.018 Allergy to other foods; Z79.899 Other long term (current) drug therapy; Z91.041 Radiographic dye allergy status; Z84.1 Family history of disorders of kidney and ureter; N17.0 Acute kidney failure with tubular necrosis; Z91.048 Other nonmedicinal substance allergy status; R65.20 Severe sepsis without septic shock; Z88.2 Allergy status to sulfonamides; Z86.19 Personal history of other infectious and parasitic diseases; Q61.5 Medullary cystic kidney; Z91.040 Latex allergy status; N13.6 Pyonephrosis; Z88.4 Allergy status to anesthetic agent; A41.51 Sepsis due to Escherichia coli [E. coli]; Z88.0 Allergy status to penicillin

== ENCOUNTER 2023-12-11 11:24 | Inpatient (IN) ==
--- NOTE | 2023-12-11 11:33 | Emergency Department Note ---
Impression & Plan Sepsis, Complicated urinary tract infection, Left flank pain, Left ureteral stone ED Provider Note NAME: CHIQUITA ROLAND AGE: 58 SEX: F : 1965 ARRIVES VIA: Walk-In INFORMANT: Patient, ED PROVIDER(S): Kushal Valnecia MD CHIEF COMPLAINT: Left-sided flank and abdominal pain, nausea vomiting MEDICAL DECISION MAKING: Patient presented due to concern for left-sided flank and abdominal pain. IV was established and blood work is obtained. [id number] BMP also ordered. Creatinine of 2.2. The patient was ordered a CT noncontrast of the abdomen and pelvis. Patient was ordered IV Rocephin after reviewing prior urine cultures and the patient was recently positive for gram-negative bacilli. Patient did receive IV fluids and IV morphine. Upon reassessment the patient was feeling improved. Pain is well-controlled and no further nausea vomiting Patient was noted to be febrile. CT abdomen pelvis that showed concern for left- sided obstructing stones. I did speak with Sophie Dawna, is here she is too young going. They will evaluate the patient as the patient may benefit from operative treatment given the concern for obstructing stone associated fever and UTI. That is with the on-call hospital service Dr. Weller and the patient was admitted to the medicine service. Discussion w/ other healthcare providers: YOLANDA Sweeney and Dr. Juanpablo Weller inpatient medicine service Prior /Outside records reviewed: None Differential diagnosis: Renal colic, UTI, pyelonephritis, appendicitis, diverticulitis, strain, sprain, fracture among others were considered. Diagnostics, as interpreted by me: ECG: None Cardiac monitoring: An order was placed for continuous cardiac monitoring. The monitor shows a rate of 125 with tachycardic and regular rhythm. Patient was placed on pulse oximetry Medical decision rules: None Imaging studies: I informally interpreted the patient's CT abdomen pelvis that show left-sided obstructive stones and associated hydronephrosis with formal report to follow. I informed the interpreted the patient's chest x-ray which does not show obvious pneumonia pneumothorax with formal report to follow. HPI: Patient presents due to concern for left-sided flank pain. The patient states that she began having some associated symptoms on Sunday. The patient's symptoms of gotten progressively worse to where she has developed burning with urination and has been passing shards and small stones. The patient does have prior history of kidney stones and does follow with urology. Patient has not noticed any overt blood. Patient has had chills but no reported fever. The patient states that she did try to take some Azo this morning for the burning but that did not help. This was around 7 AM. The patient began vomiting around 9 AM states that typically when she starts to have vomiting she requires additional treatment and thus presented here after calling the urology office. Patient has been, Dr. Engle and was referred here for further evaluation and treatment. The patient had taken some tramadol at home last several days without significant improvement in symptoms. Patient denies any chest pains or shortness of breath. The patient states that her pain is in her left flank as well as her left lower abdomen. Patient states that she did have a urine culture that came back positive that was completed yesterday. Patient is not on any current antibiotics PAST MEDICAL HISTORY: See Below PAST SURGICAL HISTORY: See Below SOCIAL HISTORY: See Below HOME MEDICATIONS: See Below ALLERGIES: See Below VITALS: See Below PHYSICAL EXAMINATION: GENERAL: Mildly ill in appearance but nontoxic, wearing glasses. EYE EXAM: Normal conjunctiva. PERRL, no anisocoria and EOM's grossly intact w/o pain. OROPHARYNX: Moist mucus membranes, grossly normal dentition. NECK: Trachea midline, no stridor. LUNGS: Clear to auscultation. Normal chest wall mechanics. HEART: Tachycardic and regular, no MRG. ABDOMEN: Abdomen soft, left lower quadrant pain without right-sided abdominal pain, not peritonitic, no masses, no rebound or guarding. BACK: Left-sided CVA TTP. SKIN: No rashes and no bruising. UPPER EXTREMITIES: Upper extremities are grossly normal. LOWER EXTREMITIES: Grossly normal, no edema. NEURO EXAM: A&O x3, cranial nerves II-XII grossly intact, normal speech, moves all 4 extremities. Past Med/Surg History Problem List (Updated 12/11/23 @ 17:05 by Kushal Valencia MD) Left ureteral stone (Acute) Chronic renal failure (CRF), stage 3b Penicillin allergy Gallstones Recurrent nephrolithiasis Pyelonephritis due to Escherichia coli S/P ureteral stent placement Acute right flank pain (Acute) Complicated urinary tract infection (Acute) Hydronephrosis, right (Acute) Right ureteral calculus (Acute) WENDY (acute kidney injury) Sepsis (Acute) Encounter for pre-operative examination Left flank pain (Acute) Medical History History of recent hospitalization 05/2023 [facility] - secondary to an obstructing right ureteral calculus with resistant E. coli urosepsis Ureteral stent present History of COVID-19 diagnosed 2019--mild symptoms, no symptoms now Benign positional vertigo IBS (irritable bowel syndrome) Atelectasis per pt was a hx, had had to use an incentive spirometry--no issues currently (states she rides her bike 30 miles without any breathing issues) History of anesthesia reaction 04/2019 "intubation induced apnea" @ [facility] in [place] was told this during cystoscopy--per pt has had 2 cystoscopy procedures since then with no issues at all Nephrolithiasis Medullary sponge kidney Dilatation of left ureter History of nephrolithiasis Surgical History History of dilatation and curettage History of bilateral tubal ligation History of strabismus surgery left History of cystoscopy multiple--started in 2013 "more than a dozen". cysto, L stent 03/21/23 emergently : MAC without issue H/O lithotripsy multiple. cysto, litho 01/09/23: [place]: LMA#4 without issue Family History Family/Other Kidney stones Cancer Hypertension Mother Family history of reaction to anesthesia 1973 radical mastectomy--had difficulty time waking her Sister Family history of reaction to anesthesia difficulty waking/nausea Social History Smoking Status: Never smoker Second Hand Exposure: No; Do You Dip or Chew Tobacco: No; Hx Alcohol Use: No Hx Substance Use: No Preferred Language: Andorran Communication Ability: Effective Pan Dumper Required: No Beliefs That Will Affect Care: None Current Living Situation: Spouse and Family Current Living Situation Comment: Lives with and 25yr old son Feels Safe at Home: Yes Assistive Devices: Glasses Allergies Allergies Allergy/AdvReac Type Severity Reaction Status Date / Time Iodinated Contrast Media Allergy Severe Difficulty Verified 12/11/23 13:44 Breathing lactose Allergy Severe (dairy) Verified 12/11/23 13:44 Difficulty Breathing penicillin G Allergy Severe breathing Verified 12/11/23 13:44 difficulty Sulfa (Sulfonamide Allergy Severe Difficulty Verified 12/11/23 13:44 Antibiotics) Breathing adhesive tape Allergy Mild itching Verified 12/11/23 13:44 latex Allergy Mild Rash Verified 12/11/23 13:44 soy Allergy Unknown Unknown Verified 12/11/23 13:44 midazolam [From Versed] AdvReac Intermediate "i just Verified 12/11/23 13:44 get a lot of vomiting" Home Meds Home Medications Medication Instructions Recorded Confirmed cholecalciferol (vitamin D3) 25 25 mcg PO QAM 01/19/22 12/11/23 mcg (1,000 unit) capsule magnesium citrate 100 mg tablet 100 mg PO .TID AC 01/19/22 12/11/23 zinc 50 mg tablet 50 mg PO QAM 01/19/22 12/11/23 potassium citrate 99 mg capsule 99 mg PO .TID AC 05/01/22 12/11/23 calcium citrate 250 mg PO .TID AC 08/30/22 12/11/23 Results & Data (ED) Vital Signs Vital Signs - 24 hr 12/11/23 11:27 12/11/23 12:20 12/11/23 12:50 Temperature 36.8 C 38.4 C H 37.9 C H Temperature Source Temporal Artery Scan Oral Oral Pulse Rate 133 H Pulse Rate [Apical] 101 H 94 H Pulse Rate from SpO2 Sensor Pulse Rhythm [Apical] Pulse Strength [Apical] Respiratory Rate 20 18 20 Respiratory Effort / Characteristics Non-Labored Spontaneous Non-Labored Spontaneous Respiratory Depth Normal Normal Respiratory Pattern Blood Pressure 160/99 H Blood Pressure [Right Arm] 145/101 H 129/85 Blood Pressure Mean 119 Blood Pressure Mean [Right Arm] 115 99 Blood Pressure Position [Right Arm] Lying Lying Pulse Oximetry 94 93 93 Oxygen Delivery Method Room Air Room Air Room Air Oxygen Flow Rate Sepsis Recent Fever Within 48 Hours No Sepsis New/Unexplained Change in Mental Status No Sepsis Action Taken by Nursing No Action Required 12/11/23 12:55 12/11/23 13:00 12/11/23 13:00 Temperature Temperature Source Pulse Rate 89 85 Pulse Rate [Apical] Pulse Rate from SpO2 Sensor 85 Pulse Rhythm [Apical] Pulse Strength [Apical] Respiratory Rate 15 Respiratory Effort / Characteristics Respiratory Depth Respiratory Pattern Blood Pressure 136/88 Blood Pressure [Right Arm] Blood Pressure Mean 91 Blood Pressure Mean [Right Arm] Blood Pressure Position [Right Arm] Pulse Oximetry 91 Oxygen Delivery Method Oxygen Flow Rate Sepsis Recent Fever Within 48 Hours Sepsis New/Unexplained Change in Mental Status Sepsis Action Taken by Nursing 12/11/23 13:15 12/11/23 13:33 12/11/23 14:03 Temperature 37.7 C H Temperature Source Oral Pulse Rate 79 72 Pulse Rate [Apical] Pulse Rate from SpO2 Sensor 79 72 Pulse Rhythm [Apical] Pulse Strength [Apical] Respiratory Rate 16 14 Respiratory Effort / Characteristics Respiratory Depth Respiratory Pattern Blood Pressure Blood Pressure [Right Arm] Blood Pressure Mean Blood Pressure Mean [Right Arm] Blood Pressure Position [Right Arm] Pulse Oximetry 91 95 Oxygen Delivery Method Oxygen Flow Rate Sepsis Recent Fever Within 48 Hours Sepsis New/Unexplained Change in Mental Status Sepsis Action Taken by Nursing 12/11/23 14:30 12/11/23 14:30 12/11/23 15:03 Temperature Temperature Source Pulse Rate 76 79 Pulse Rate [Apical] Pulse Rate from SpO2 Sensor 74 79 Pulse Rhythm [Apical] Pulse Strength [Apical] Respiratory Rate 15 20 Respiratory Effort / Characteristics Respiratory Depth Respiratory Pattern Blood Pressure 119/72 118/76 Blood Pressure [Right Arm] Blood Pressure Mean 84 90 Blood Pressure Mean [Right Arm] Blood Pressure Position [Right Arm] Pulse Oximetry 95 95 Oxygen Delivery Method Oxygen Flow Rate Sepsis Recent Fever Within 48 Hours Sepsis New/Unexplained Change in Mental Status Sepsis Action Taken by Nursing 12/11/23 15:41 12/11/23 16:27 12/11/23 16:35 Temperature 37.0 C 36.2 C L Temperature Source Oral Temporal Artery Scan Pulse Rate Pulse Rate [Apical] 74 69 63 Pulse Rate from SpO2 Sensor Pulse Rhythm [Apical] Regular Regular Regular Pulse Strength [Apical] Normal Respiratory Rate 18 16 16 Respiratory Effort / Characteristics Non-Labored Spontaneous Non-Labored Spontaneous Non-Labored Spontaneous Respiratory Depth Normal Normal Normal Respiratory Pattern Regular Regular Regular Blood Pressure Blood Pressure [Right Arm] 137/93 95/60 L 104/59 L Blood Pressure Mean Blood Pressure Mean [Right Arm] 107 71 74 Blood Pressure Position [Right Arm] Semi-fowlers Semi-fowlers Semi-fowlers Pulse Oximetry 93 92 95 Oxygen Delivery Method Room Air Oxymask Oxymask Oxygen Flow Rate 8 3 Sepsis Recent Fever Within 48 Hours Sepsis New/Unexplained Change in Mental Status Sepsis Action Taken by Nursing 12/11/23 16:45 Temperature 37.0 C Temperature Source Temporal Artery Scan Pulse Rate Pulse Rate [Apical] 64 Pulse Rate from SpO2 Sensor Pulse Rhythm [Apical] Regular Pulse Strength [Apical] Respiratory Rate 13 Respiratory Effort / Characteristics Non-Labored Spontaneous Respiratory Depth Normal Respiratory Pattern Regular Blood Pressure Blood Pressure [Right Arm] 107/75 Blood Pressure Mean Blood Pressure Mean [Right Arm] 85 Blood Pressure Position [Right Arm] Semi-fowlers Pulse Oximetry 93 Oxygen Delivery Method Nasal Cannula Oxygen Flow Rate 2 Sepsis Recent Fever Within 48 Hours Sepsis New/Unexplained Change in Mental Status Sepsis Action Taken by Assisted Medications Current Medication List: was personally reviewed by me Laboratory Data Attestation: I reviewed the patient's lab results. 12/11/23 11:44 12/11/23 11:44 Lab Results 12/11/23 12/11/23 12/11/23 Range/Units 11:44 11:52 12:12 WBC 9.97 (4.8-10.8) K/ul RBC 5.22 (4.20-5.40) M/uL Hgb 16.0 (12.0-16.0) g/dl POC Hgb 16.3 H (12.0-16.0) g/dl Hct 48.2 H (37.0-47.0) % POC Hct 48 H (37-47) % MCV 92.3 (80.0-100.0) fL MCH 30.7 (25.0-34.0) pg MCHC 33.2 (32.0-36.0) g/dL RDW Std Deviation 46.5 H (36.4-46.3) fL RDW Coeff of Bryant 13.6 (11.5-14.5) % Plt Count 227 (130-400) K/uL MPV 9.6 (9.4-12.4) fL Immature Gran % (Auto) 0.3 % Neut % (Auto) 82.5 % Lymph % (Auto) 6.8 % Andrews % (Auto) 7.5 % Eos % (Auto) 2.1 % Baso % (Auto) 0.8 % Neut # (Auto) 8.22 H (1.40-6.50) K/uL Lymph # (Auto) 0.68 L (1.20-3.40) K/uL Andrews # (Auto) 0.75 H (0.11-0.59) K/uL Eos # (Auto) 0.21 (0.00-0.50) K/uL Baso # (Auto) 0.08 (0.00-0.20) K/uL Immature Gran # (Auto) 0.03 (0.01-0.20) K/uL POC Sodium 139 (135-144) mmol/L Sodium 137 (136-145) mmol/L POC Potassium 3.9 (3.3-5.0) mmol/L Potassium 3.6 (3.5-5.1) mmol/L POC Chloride 113 H (101-112) mmol/L Chloride 108 H (98-107) mmol/L Carbon Dioxide 19 L (21-32) mmol/L POC Total CO2 20 L (24-31) mmol/L Anion Gap 10 (3-11) POC Anion Gap 12.0 L (16-25) mmol/L POC BUN 37 H (7-18) mg/dl BUN 38 H (6-23) mg/dl Creatinine 2.24 H (0.6-1.2) mg/dl POC Creatinine 2.4 H (0.6-1.3) mg/dl Est Cr Clr Drug Dosing 34.7 ml/min Est GFR ( Amer) 26.7 ml/min Est GFR (Non-Af Amer) 23.1 ml/min BUN/Creatinine Ratio 17.0 (10-20) Glucose 104 H (70-99(Fasting)) mg/dl POC Glucose (other) 103 H (70-99) mg/dl Lactate 0.8 (0.4-2.0) mmol/L Calcium 11.2 H (8.6-10.3) mg/dl POC Ioniz Calcium Stephanie 1.42 H (1.12-1.32) mmol/l Magnesium 3.0 H (1.7-2.4) mg/dl Total Bilirubin 0.7 (0.2-1.0) mg/dl Direct Bilirubin 0.1 (0-0.2) mg/dl AST 20 (13-39) U/L ALT 17 (7-52) U/L Alkaline Phosphatase 74 (34-104) U/L Troponin I High Sens 6.3 (0-14) pg/ml Total Protein 8.7 H (6.0-8.3) gm/dl Albumin 4.8 (3.4-5.0) gm/dl Procalcitonin 0.59 H (0-0.5) ng/ml Urine Color Urine Appearance (Clear) Urine pH (4.5-7.5) Ur Specific [place] (1.000-1.030) Urine Protein (Negative) Urine Glucose (UA) (Negative) Urine Ketones (Negative) Urine Blood (Negative) Urine Nitrite (Negative) Urine Bilirubin (Negative) Urine Urobilinogen (Negative) Ur Leukocyte Esterase (Negative) Urine WBC (Auto) (0-5) /hpf Urine RBC (Auto) (0-2) /hpf U Hyaline Cast (Auto) (0-2) /lpf U Epithel Cells (Auto) (0-2) /hpf Urine Bacteria (Auto) (None Seen) 12/11/23 Range/Units 12:53 WBC (4.8-10.8) K/ul RBC (4.20-5.40) M/uL Hgb (12.0-16.0) g/dl POC Hgb (12.0-16.0) g/dl Hct (37.0-47.0) % POC Hct (37-47) % MCV (80.0-100.0) fL MCH (25.0-34.0) pg MCHC (32.0-36.0) g/dL RDW Std Deviation (36.4-46.3) fL RDW Coeff of Bryant (11.5-14.5) % Plt Count (130-400) K/uL MPV (9.4-12.4) fL Immature Gran % (Auto) % Neut % (Auto) % Lymph % (Auto) % Andrews % (Auto) % Eos % (Auto) % Baso % (Auto) % Neut # (Auto) (1.40-6.50) K/uL Lymph # (Auto) (1.20-3.40) K/uL Andrews # (Auto) (0.11-0.59) K/uL Eos # (Auto) (0.00-0.50) K/uL Baso # (Auto) (0.00-0.20) K/uL Immature Gran # (Auto) (0.01-0.20) K/uL POC Sodium (135-144) mmol/L Sodium (136-145) mmol/L POC Potassium (3.3-5.0) mmol/L Potassium (3.5-5.1) mmol/L POC Chloride (101-112) mmol/L Chloride (98-107) mmol/L Carbon Dioxide (21-32) mmol/L POC Total CO2 (24-31) mmol/L Anion Gap (3-11) POC Anion Gap (16-25) mmol/L POC BUN (7-18) mg/dl BUN (6-23) mg/dl Creatinine (0.6-1.2) mg/dl POC Creatinine (0.6-1.3) mg/dl Est Cr Clr Drug Dosing ml/min Est GFR ( Amer) ml/min Est GFR (Non-Af Amer) ml/min BUN/Creatinine Ratio (10-20) Glucose (70-99(Fasting)) mg/dl POC Glucose (other) (70-99) mg/dl Lactate (0.4-2.0) mmol/L Calcium (8.6-10.3) mg/dl POC Ioniz Calcium Stephanie (1.12-1.32) mmol/l Magnesium (1.7-2.4) mg/dl Total Bilirubin (0.2-1.0) mg/dl Direct Bilirubin (0-0.2) mg/dl AST (13-39) U/L ALT (7-52) U/L Alkaline Phosphatase (34-104) U/L Troponin I High Sens (0-14) pg/ml Total Protein (6.0-8.3) gm/dl Albumin (3.4-5.0) gm/dl Procalcitonin (0-0.5) ng/ml Urine Color Dark Yellow Urine Appearance Cloudy A (Clear) Urine pH 7.0 (4.5-7.5) Ur Specific [place] 1.010 (1.000-1.030) Urine Protein 1+ H (Negative) Urine Glucose (UA) Negative (Negative) Urine Ketones Negative (Negative) Urine Blood 2+ H (Negative) Urine Nitrite Positive A (Negative) Urine Bilirubin Negative (Negative) Urine Urobilinogen Negative (Negative) Ur Leukocyte Esterase 3+ H (Negative) Urine WBC (Auto) >50 H (0-5) /hpf Urine RBC (Auto) 3-5 H (0-2) /hpf U Hyaline Cast (Auto) 3-5 H (0-2) /lpf U Epithel Cells (Auto) 0-2 (0-2) /hpf Urine Bacteria (Auto) 4+ H (None Seen) Administered Medications Sodium Chloride (Nss) 1,000 mls @ 100 mls/hr IV .Q10H CASIE Stop: 01/10/24 14:59 Last Admin: 12/11/23 15:10 Dose: 100 mls/hr Documented By: YAYO Discontinued Medications Sodium Chloride (Nss) 1,000 mls @ 999 mls/hr IV .Q1H1M CASIE Stop: 12/11/23 13:45 Last Infusion: 12/11/23 15:10 Dose: Infused Documented By: Admin: 12/11/23 13:15 Dose: 999 mls/hr Documented By: Infusion: 12/11/23 13:10 Dose: Infused Documented By: Admin: 12/11/23 12:09 Dose: 999 mls/hr Documented By: CC Ceftriaxone Sodium (Rocephin) 2,000 mg in 50 mls @ 100 mls/hr IV NOW STA Stop: 12/11/23 12:08 Last Infusion: 12/11/23 13:04 Dose: Infused Documented By: Admin: 12/11/23 12:16 Dose: 100 mls/hr Documented By: CC Acetaminophen (Ofirmev) 1,000 mg in 100 mls @ 400 mls/hr IV NOW STA Stop: 12/11/23 12:39 Last Infusion: 12/11/23 13:15 Dose: Infused Documented By: Admin: 12/11/23 12:48 Dose: 400 mls/hr Documented By: CC Morphine Sulfate (Morphine Sulfate 10 Mg/Ml Carp/Vial) 8 mg IV NOW STA Stop: 12/11/23 11:40 Last Admin: 12/11/23 12:10 Dose: 8 mg Documented By: CC Imaging Data Radiologist's Impression: Abdomen Fluoroscopy 12/11/23 00:00 FL KUB CLINICAL HISTORY: LT STENT TECHNIQUE: 1 views were obtained with the C-arm in the OR with the above procedure. Total fluoroscopy time was 8.9 seconds. Radiation dose was 2.49 mGy. Comparison: Comparison is made to CT abdomen pelvis 12/11/2023 FINDINGS/IMPRESSION: Intraoperative images were obtained of left stent placement. In the final images, the stent is in satisfactory position. Please correlate with intraoperative fluoroscopy and operative report. ACT 112: Negative or not required by law. Electronically signed by: Jose Goel M.D. 12/11/2023 4:43 PM Chest X-Ray 12/11/23 11:38 SINGLE VIEW CHEST CLINICAL HISTORY: Sepsis FINDINGS: An AP, portable, upright chest radiograph is compared to study dated 12/29/2022. The cardiomediastinal silhouette is unremarkable. The lungs and pleural spaces are clear. No pneumothorax is seen. The bony thorax is grossly intact. IMPRESSION: No active disease in the chest. ACT 112: Negative or not required by law. Electronically signed by: Jonathan Galvez M.D. 12/11/2023 12:00 PM Abdomen/Pelvis CT 12/11/23 11:[address] WITHOUT CONTRAST CT DOSE: 1533.89 mGy.cm HISTORY: Acute left-sided flank pain L sided flank pain, +clx, h/o stones TECHNIQUE: Multiaxial CT images of the abdomen and pelvis were performed without contrast. A dose lowering technique was utilized adhering to the principles of ALARA. COMPARISON STUDY: 05/29/2023 FINDINGS: Subsegmental bibasilar atelectasis/scarring. No free air. The unenhanced spleen, pancreas and adrenal glands are unremarkable. The gallbladder and liver are also within normal limits. Cortical thinning of the kidneys with bilateral medullary nephrocalcinosis. No right-sided ureteral calculi or hydronephrosis. 6 mm nonobstructing calculus in the superior pole left kidney. There is moderate left-sided hydroureteronephrosis secondary to a column of at least 5 calculi within the distal left ureter extending into the ureterovesicular junction measuring up to approximately 7 mm. There is reactive perinephric and periureteral inflammatory stranding. Unremarkable abdominal aorta. There is no lymphadenopathy. No bowel obstruction or bowel wall thickening. Colonic diverticulosis without acute diverticulitis. Mild colonic fecal retention. Normal appendix. No acute fracture. Healed chronic right-sided rib fractures. IMPRESSION: 1. Moderate left-sided hydroureteronephrosis secondary to a column of obstructing distal ureteral calculi measuring up to 7 mm extending into the ureterovesicular junction. 2. Bilateral medullary nephrocalcinosis with left nephrolithiasis. 3. No bowel obstruction or bowel wall thickening. 4. Additional findings as above. ACT 112: Negative or not required by law. The above report was generated using voice recognition software. It may contain grammatical, syntax or spelling errors. Electronically signed by: Lemuel Andujar M.D. 12/11/2023 1:11 PM Discharge Plan Visit Data Chief Complaint: Kidney Stone Stated Complaint: KIDNEY PAIN, VOMITING, SHAKES ED Provider: Kushal Valencia Discharge Problem: Sepsis, Complicated urinary tract infection, Left flank pain, Left ureteral stone Discharge Instructions Interventions: ED Discharge Assessment Last Done: 12/11/23 15:43 Prescriptions Prescriptions: No Action calcium citrate 250 mg calcium tablet 250 mg PO .TID AC Rx Instructions: HAS TO HAVE 20MIN BEFORE MEALS zinc 50 mg tablet 50 mg PO QAM cholecalciferol (vitamin D3) 25 mcg (1,000 unit) capsule 25 mcg PO QAM magnesium citrate 100 mg tablet 100 mg PO .TID AC Rx Instructions: hAS TO HAVE 20 MIN BEFORE MEALS potassium citrate 99 mg capsule 99 mg PO .TID AC Rx Instructions: has to have 20 min before meals. Discharge Problem: Sepsis Qualifiers: Sepsis type: sepsis due to unspecified organism Sepsis acute organ dysfunction status: unspecified Qualified Code(s): A41.9 - Sepsis, unspecified organism
--- NOTE | 2023-12-11 12:02 | XRay Report ---
SINGLE VIEW CHEST CLINICAL HISTORY: Sepsis FINDINGS: An AP, portable, upright chest radiograph is compared to study dated 12/29/2022. The cardiome diastinal silhouette is unremarkable. The lungs and pleural spaces are clear. No pneumothorax is seen . The bony thorax is grossly intact. IMPRESSION: No active disease in the chest. ACT 112: Negative or not required by law. Electronically signed by: Jonathan Galvez M.D. 12/11/2023 12:00 PM
[2023-12-11 12:09] LABS: iSTAT Creatinine 2.4 mg/dl (0.6-1.3); iSTAT Hemoglobin 16.3 g/dl (12.0-16.0); iSTAT Ionized Calcium 1.42 mmol/l (1.12-1.32); iSTAT Potassium 3.9 mmol/L (3.3-5.0)
[2023-12-11] MEDS: SODIUM CHLORIDE 0.9% 1,000 ML IV SCH ×2 (12:09→15:10)
[2023-12-11] MEDS: MoRPHine SULFATE 10 MG/ML CARP/VIAL IV STA (12:10)
[2023-12-11 12:15] LABS: Basophils # (auto) 0.08 K/uL (0.00-0.20); Basophils % (auto) 0.8 %; Eosinophils # (auto) 0.21 K/uL (0.00-0.50); Eosinophils % (auto) 2.1 %; Hematocrit (blood only) 48.2 % (37.0-47.0); Immature Granulocytes # (auto) 0.03 K/uL (0.01-0.20); Immature Granulocytes % (auto) 0.3 %; Lymphocytes # (auto) 0.68 K/uL (1.20-3.40); Lymphocytes % (auto) 6.8 %; Mean Corpuscular Hemoglobin 30.7 pg (25.0-34.0); Mean Corpuscular Hgb Conc 33.2 g/dL (32.0-36.0); Mean Corpuscular Volume 92.3 fL (80.0-100.0); Mean Platelet Volume 9.6 fL (9.4-12.4); Monocytes # (auto) 0.75 K/uL (0.11-0.59); Monocytes % (auto) 7.5 %; Neutrophils # (auto) 8.22 K/uL (1.40-6.50); Neutrophils % (auto) 82.5 %; Platelet Count 227 K/uL (130-400); RDW Coefficient of Variation 13.6 % (11.5-14.5); RDW Standard Deviation 46.5 fL (36.4-46.3); Red Blood Count 5.22 M/uL (4.20-5.40); White Blood Count 9.97 K/ul (4.8-10.8)
[2023-12-11] MEDS: cefTRIAXone SODIUM 2,000 MG/50 ML BAG IV STA (12:16)
[2023-12-11 12:34] LABS: Albumin Level 4.8 gm/dl (3.4-5.0); Bilirubin Direct 0.1 mg/dl (0-0.2); Bilirubin,Total 0.7 mg/dl (0.2-1.0); Calcium 11.2 mg/dl (8.6-10.3); Creatinine Clr Calc Pharmacy 34.7 ml/min; Est GFR (African American) 26.7 ml/min; Est GFR (Non-African American) 23.1 ml/min; Potassium 3.6 mmol/L (3.5-5.1); Total Protein 8.7 gm/dl (6.0-8.3)
[2023-12-11 12:38] LABS: Troponin I High Sensitivity 6.3 pg/ml (0-14)
[2023-12-11] MEDS: ACETAMINOPHEN 1,000 MG/100 ML VIAL IV STA (12:48)
--- NOTE | 2023-12-11 13:12 | CT Scan Report ---
ABDOMEN AND PELVIS CT WITHOUT CONTRAST CT DOSE: 1533.89 mGy.cm HISTORY: Acute left-sided flank pain L sided flank pain, +clx, h/o stones TECHNIQUE: Multiaxial CT images of the abdomen and pelvis were performed without contrast. A dose lo wering technique was utilized adhering to the principles of ALARA. COMPARISON STUDY: 05/29/2023 FINDINGS: Subsegmental bibasilar atelectasis/scarring. No free air. The unenhanced spleen, pancreas a nd adrenal glands are unremarkable. The gallbladder and liver are also within normal limits. Cortical thinning of the kidneys with bilateral medullary nephrocalcinosis. No right-sided ureteral c alculi or hydronephrosis. 6 mm nonobstructing calculus in the superior pole left kidney. There is mod erate left-sided hydroureteronephrosis secondary to a column of at least 5 calculi within the distal left ureter extending into the ureterovesicular junction measuring up to approximately 7 mm. There is reactive perinephric and periureteral inflammatory stranding. Unremarkable abdominal aorta. There is no lymphadenopathy. No bowel obstruction or bowel wall thicken ing. Colonic diverticulosis without acute diverticulitis. Mild colonic fecal retention. Normal append ix. No acute fracture. Healed chronic right-sided rib fractures. IMPRESSION: 1. Moderate left-sided hydroureteronephrosis secondary to a column of obstructing distal ureteral kimmie culi measuring up to 7 mm extending into the ureterovesicular junction. 2. Bilateral medullary nephrocalcinosis with left nephrolithiasis. 3. No bowel obstruction or bowel wall thickening. 4. Additional findings as above. ACT 112: Negative or not required by law. The above report was generated using voice recognition software. It may contain grammatical, syntax o r spelling errors. Electronically signed by: Lemuel Andujar M.D. 12/11/2023 1:11 PM
[2023-12-11 13:59] LABS: Appearance Urine Cloudy (Clear); Bacteria Urine Automated 4+ (None Seen); Bilirubin Urine Negative (Negative); Blood Urine 2+ (Negative); Color Urine Dark Yellow; Epithelial Cell Urine Auto 0-2 /hpf (0-2); Glucose Urine UA Negative (Negative); Ketones Urine Negative (Negative); Leukocyte Esterase Urine 3+ (Negative); Nitrite Urine Positive (Negative); Protein Urine 1+ (Negative); Urobilinogen Urine Negative (Negative); WBC Urine Automated >50 /hpf (0-5)
[2023-12-11] MEDS ORDERED: ACETAMINOPHEN 325 MG TAB PO PRN (14:47)
[2023-12-11] MEDS ORDERED: MoRPHine SULFATE 2 MG/ML CARP IV PRN (14:47)
--- NOTE | 2023-12-11 14:57 | History & Physical Report ---
Date of Service December 11, 2023 Assessment & Plan (1) Left ureteral stone: Plan: Assessment: 1. Left-sided ureteral calculus 7 mm at the UVJ. With associated left-sided hydronephrosis. Patient has a longstanding history of recurrent nephroureterolithiasis. Urology's been consulted. Tentative plan is to go to the OR today. Blood cultures obtained. IV Rocephin. Urine cultures also obtained. 2. Early clinical sepsis with fever and tachycardia and an elevated procalcitonin on admission. Continue with volume resuscitate. Blood cultures have been ordered. 3. CKD 3B stable. 4. Obesity. 5. Vitamin D deficiency. Plan: As described above. Please refer to orders for further planning. History of Present Illness Chief Complaint: Left-sided flank pain, history of nephrolithiasis. Primary Care Provider: Arvin Weller MD Is a pleasant 58-year-old female who last week passed several kidney stones she has a history of multiple kidney stones in the past. Over the weekend she began to have a low-grade fever she spoke with urology on-call, Dr. Engle, who recommended watchful waiting. On Sunday her pain actually improved a little bit. She took some [id number] Ultram. However today her pain became severe and the fever returned and is more elevated. Therefore she presented the ER for further evaluation and treatment. In the ER she was febrile, blood pressure was satisfactory. Patient was tachycardic on presentation 130 bpm. Urine looks infected. Patient had blood cultures in the ER. Had 2 g of IV Rocephin and 8 mg of IV morphine and 1 L of normal saline. CAT scan demonstrated a 7 mm left deep UVJ stone. With associated left-sided hydronephrosis. Creatinine showed chronic kidney disease with a baseline creatinine approximately 2.3. Urological consultation was obtained in the ER tentative plan is to take the patient to the OR for cystoscopy stone extraction and stent placement. Will continue IV fluids and IV antibiotics as needed antiemetics and analgesics. The patient NPO. Allergies Allergy/AdvReac Type Severity Reaction Status Date / Time Iodinated Contrast Media Allergy Severe Difficulty Verified 12/11/23 13:44 Breathing lactose Allergy Severe (dairy) Verified 12/11/23 13:44 Difficulty Breathing penicillin G Allergy Severe breathing Verified 12/11/23 13:44 difficulty Sulfa (Sulfonamide Allergy Severe Difficulty Verified 12/11/23 13:44 Antibiotics) Breathing adhesive tape Allergy Mild itching Verified 12/11/23 13:44 latex Allergy Mild Rash Verified 12/11/23 13:44 soy Allergy Unknown Unknown Verified 12/11/23 13:44 midazolam [From Versed] AdvReac Intermediate "i just Verified 12/11/23 13:44 get a lot of vomiting" Home Medications Medication Instructions Recorded Confirmed Type cholecalciferol (vitamin D3) 25 25 mcg PO QAM 01/19/22 12/11/23 History mcg (1,000 unit) capsule magnesium citrate 100 mg tablet 100 mg PO .TID AC 01/19/22 12/11/23 History zinc 50 mg tablet 50 mg PO QAM 01/19/22 12/11/23 History potassium citrate 99 mg capsule 99 mg PO .TID AC 05/01/22 12/11/23 History calcium citrate 250 mg PO .TID AC 08/30/22 12/11/23 History Past Med/Surg History Problem List (Updated 07/02/23 @ 00:07 by Cheyenne Phelan) Chronic renal failure (CRF), stage 3b Penicillin allergy Gallstones Recurrent nephrolithiasis Pyelonephritis due to Escherichia coli S/P ureteral stent placement Acute right flank pain (Acute) Complicated urinary tract infection (Acute) Hydronephrosis, right (Acute) Right ureteral calculus (Acute) WENDY (acute kidney injury) Sepsis Encounter for pre-operative examination Left flank pain Medical History History of recent hospitalization 05/2023 [facility] - secondary to an obstructing right ureteral calculus with resistant E. coli urosepsis Ureteral stent present Left ureteral stone History of COVID-19 diagnosed 2019--mild symptoms, no symptoms now Benign positional vertigo IBS (irritable bowel syndrome) Atelectasis per pt was a hx, had had to use an incentive spirometry--no issues currently (states she rides her bike 30 miles without any breathing issues) History of anesthesia reaction 04/2019 "intubation induced apnea" @ [facility] in [place] was told this during cystoscopy--per pt has had 2 cystoscopy procedures since then with no issues at all Nephrolithiasis Medullary sponge kidney Dilatation of left ureter History of nephrolithiasis Surgical History History of dilatation and curettage History of bilateral tubal ligation History of strabismus surgery left History of cystoscopy multiple--started in 2013 "more than a dozen". cysto, L stent 03/21/23 emergently : MAC without issue H/O lithotripsy multiple. cysto, litho 01/09/23: [place]: LMA#4 without issue Family History Family/Other Kidney stones Cancer Hypertension Mother Family history of reaction to anesthesia 1973 radical mastectomy--had difficulty time waking her Sister Family history of reaction to anesthesia difficulty waking/nausea Social History Smoking Status: Never smoker Second Hand Exposure: No; Do You Dip or Chew Tobacco: No; Hx Alcohol Use: No Hx Substance Use: No Preferred Language: American Communication Ability: Effective Medical Billing Coordinator Required: No Beliefs That Will Affect Care: None Current Living Situation: Spouse and Family Current Living Situation Comment: Lives with and 25yr old son Feels Safe at Home: Yes Assistive Devices: Glasses Review of Systems Review of Systems: A 10 point review of system was obtained and unless otherwise stated here or in history of present illness are negative and noncontributory to chief complaint. Physical Exam Physical Exam: In General: In general pleasant 58-year-old female [place] by her at the time of my examination. She interacts appropriate pleasantly. Her pain is fairly well-controlled with the 8 mg morphine given in the ER. Her skin is warm to the touch she is afebrile currently. HEENT: Normocephalic atraumatic pupils are equal round and reactive to light bilaterally. No scleral icterus no conjunctival injection external auditory canals are patent septum is in the midline nose is without discharge oral mucosa is pink and moist without lesion. NECK: Supple no rigidity no lymphadenopathy no thyromegaly no carotid bruits no JVD no masses. HEART: Regular rate and rhythm I do not appreciate any ectopy or rub. No murmur. LUNGS: Clear to auscultation bilaterally and anteriorly with no evidence of adventitious sounds/wheezes rales or rhonchi. ABDOMEN: Soft nontender, no rebound, no peritoneal signs, positive bowel sounds, no appreciable organomegaly. EXTREMITIES: Intact, no peripheral cyanosis, clubbing or edema. Strength is 5 out of 5 in extremities x4, no pathological reflexes. NEUROLOGICAL: Cranial nerves II through XII are grossly intact with no focal deficit elicited upon examination. No tremor. Results & Data Results & Data Vital Signs (Past 12 Hours) Vital Signs Temp Pulse Pulse Resp BP BP Pulse Ox 12/11/23 13:15 37.7 C H 12/11/23 12:55 89 12/11/23 12:50 37.9 C H 94 H 20 129/85 93 12/11/23 12:20 38.4 C H 101 H 18 145/101 H 93 12/11/23 11:27 36.8 C 133 H 20 160/99 H 94 O2 Del Method 12/11/23 13:15 12/11/23 12:55 12/11/23 12:50 Room Air 12/11/23 12:20 Room Air 12/11/23 11:27 Room Air Code Status & VTE Plan Code Status Full code. I personally discussed with patient at the bedside today. VTE Prophylaxis Plan VTE Prophylaxis will be ordered: Yes PG Care Time/CCT Total # of Minutes Spent Total Time Spent with Patient: Total time spent is greater than 50% in coordination of care (as documented) at patient's floor/unit and/or counseling patient: Coding Level of Care Code 88913 INT INP/OBS CARE 3/75MIN Diagnoses Left ureteral stone N20.1
--- NOTE | 2023-12-11 14:58 | Urology Consultation ---
Date of Consultation December 11, 2023 Assessment & Plan (1) Left ureteral stone: (2) Left flank pain: 58 yo/F admitted for left ureteral calculi, fever and suspected UTI Patient febrile in the emergency department, Tmax 38.4 Lab work reviewedcreatinine 2.24, WBC 9.97 Urinalysis is suspicious for UTI with positive nitrates, pyuria, LE and bacteria Urine and blood cultures are pendingcontinue with broad-spectrum antibiotics and narrow per sensitivity data when available CT imaging reviewed and discussed with patient and spouse Discussed column of obstructing left ureteral calculi Discussed recommendation for left ureteral stent placement today in context of obstructing stones, fever and suspicion of UTI We discussed that stones will need to be treated at a later date after infection has been treated She is agreeable to proceed with cystoscopy and left ureteral stent placement today Risks and benefits of procedure to be reviewed with patient by Dr. Geronimo Keep patient NPO for procedure She was treated with IV ceftriaxone in the emergency department Continue supportive care, antibiotics and pain control will follow Supervising Physician Co-Signing Physician Notes Agree with above, plan for cystoscopy left ureteral stent placement History of Present Illness History of Present Illness This is a 58-year-old female with past medical history of nephrocalcinosis/medullary sponge kidney and recurrent nephrolithiasis who presented to the emergency department today with worsening left flank pain, fever/chills and vomiting. On arrival, she was afebrile, tachycardic. She became febrile in the emergency department, Tmax 38.4. Workup in the emergency department included CT abdomen/pelvis without contrast which demonstrated moderate left hydroureteronephrosis secondary to a column of obstructing distal ureteral calculi measuring up to 7 mm into the UVJ; bilateral medullary nephrocalcinosis with left nephrolithiasis. Lab work showed WBC 9.97, hemoglobin 16.0, creatinine 2.24. Urinalysis showed 2+ blood, positive nitrates, 3+ LE, >50 WBC, 3-5 RBC, and 4+ bacteria. Urine and blood cultures obtained and pending. ED course included IV fluids, Rocephin, IV acetaminophen and morphine. Patient seen and examined in the emergency department. at bedside. Left flank pain has improved since arrival. She reports developing left flank pain last week and began to pass stone fragments. Her symptoms have progressively worsened in the last 2 days ago. She reports chills, low grade fever, nausea and vomiting this morning. She reports ongoing dysuria and has been passing mucus and sand in her urine. She last ate at 6 AM, but has been vomiting since then. Allergies Allergy/AdvReac Type Severity Reaction Status Date / Time Iodinated Contrast Media Allergy Severe Difficulty Verified 12/11/23 13:44 Breathing lactose Allergy Severe (dairy) Verified 12/11/23 13:44 Difficulty Breathing penicillin G Allergy Severe breathing Verified 12/11/23 13:44 difficulty Sulfa (Sulfonamide Allergy Severe Difficulty Verified 12/11/23 13:44 Antibiotics) Breathing adhesive tape Allergy Mild itching Verified 12/11/23 13:44 latex Allergy Mild Rash Verified 12/11/23 13:44 soy Allergy Unknown Unknown Verified 12/11/23 13:44 midazolam [From Versed] AdvReac Intermediate "i just Verified 12/11/23 13:44 get a lot of vomiting" Home Medications Medication Instructions Recorded Confirmed Type cholecalciferol (vitamin D3) 25 25 mcg PO QAM 01/19/22 12/11/23 History mcg (1,000 unit) capsule magnesium citrate 100 mg tablet 100 mg PO .TID AC 01/19/22 12/11/23 History zinc 50 mg tablet 50 mg PO QAM 01/19/22 12/11/23 History potassium citrate 99 mg capsule 99 mg PO .TID AC 05/01/22 12/11/23 History calcium citrate 250 mg PO .TID AC 08/30/22 12/11/23 History Patient History Medical History History of recent hospitalization 05/2023 [facility] - secondary to an obstructing right ureteral calculus with resistant E. coli urosepsis Ureteral stent present History of COVID-19 diagnosed 2019--mild symptoms, no symptoms now Benign positional vertigo IBS (irritable bowel syndrome) Atelectasis per pt was a hx, had had to use an incentive spirometry--no issues currently (states she rides her bike 30 miles without any breathing issues) History of anesthesia reaction 04/2019 "intubation induced apnea" @ [facility] in [place] was told this during cystoscopy--per pt has had 2 cystoscopy procedures since then with no issues at all Nephrolithiasis Medullary sponge kidney Dilatation of left ureter History of nephrolithiasis Surgical History History of dilatation and curettage History of bilateral tubal ligation History of strabismus surgery left History of cystoscopy multiple--started in 2013 "more than a dozen". cysto, L stent 03/21/23 emergently : MAC without issue H/O lithotripsy multiple. cysto, litho 01/09/23: [place]: LMA#4 without issue Family History Family/Other Kidney stones Cancer Hypertension Mother Family history of reaction to anesthesia 1973 radical mastectomy--had difficulty time waking her Sister Family history of reaction to anesthesia difficulty waking/nausea Social History Smoking Status: Never smoker Second Hand Exposure: No; Do You Dip or Chew Tobacco: No; Hx Alcohol Use: No Hx Substance Use: No Preferred Language: Sami Communication Ability: Effective Pharmacy Operations Manager Required: No Beliefs That Will Affect Care: None Current Living Situation: Spouse and Family Current Living Situation Comment: Lives with and 25yr old son Feels Safe at Home: Yes Assistive Devices: Glasses Review of Systems Review of Systems: All systems reviewed & are unremarkable except as noted in HPI & below Physical Exam Constitutional: no acute distress Eyes: no scleral abnormality Respiratory: normal respiratory effort; no respiratory distress and no labored breathing Cardiovascular: Rate/Rhythm: regular rate Gastrointestinal (Abdomen): Inspection/Auscultation: abdomen normal to inspection Musculoskeletal: Head/Neck/Chest: normocephalic Neurologic: moves all extremities and awake Psychiatric: Orientation: alert and oriented x 3 Genitourinary: no CVA tenderness Results & Data Vital Signs (Past 12 Hours) Vital Signs Temp Pulse Pulse Resp BP BP Pulse Ox 12/11/23 13:15 37.7 C H 12/11/23 12:55 89 12/11/23 12:50 37.9 C H 94 H 20 129/85 93 12/11/23 12:20 38.4 C H 101 H 18 145/101 H 93 12/11/23 11:27 36.8 C 133 H 20 160/99 H 94 O2 Del Method 12/11/23 13:15 12/11/23 12:55 12/11/23 12:50 Room Air 12/11/23 12:20 Room Air 12/11/23 11:27 Room Air PG Care Time/CCT Total # of Minutes Spent Total Time Spent with Patient: Total time spent is greater than 50% in coordination of care (as documented) at patient's floor/unit and/or counseling patient: Coding Level of Care Code 08529 IN/OBS CONSULT LVL 4,60M Diagnoses Left ureteral stone N20.1 Left flank pain R10.9
--- NOTE | 2023-12-11 15:14 | Anesthesiology Consultation ---
Date of Service December 11, 2023 Assessment & Plan (1) Encounter for pre-operative examination: Chart Review Chart Review: Acceptable Risk for Surgery History Surgery Operation Date: 12/11/23 10:20 Proposed Procedures p Cystoscopy, Left Ureteral Stent Placement - Lance Geronimo MD Height/Weight Height: 5 ft 10 in Weight: 103.1 kg Allergies Allergy/AdvReac Type Severity Reaction Status Date / Time Iodinated Contrast Media Allergy Severe Difficulty Verified 12/11/23 13:44 Breathing lactose Allergy Severe (dairy) Verified 12/11/23 13:44 Difficulty Breathing penicillin G Allergy Severe breathing Verified 12/11/23 13:44 difficulty Sulfa (Sulfonamide Allergy Severe Difficulty Verified 12/11/23 13:44 Antibiotics) Breathing adhesive tape Allergy Mild itching Verified 12/11/23 13:44 latex Allergy Mild Rash Verified 12/11/23 13:44 soy Allergy Unknown Unknown Verified 12/11/23 13:44 midazolam [From Versed] AdvReac Intermediate "i just Verified 12/11/23 13:44 get a lot of vomiting" Medications Home Medications Medication Instructions Recorded Confirmed Last Taken cholecalciferol (vitamin D3) 25 25 mcg PO QAM 01/19/22 12/11/23 06/18/23 17:00 mcg (1,000 unit) capsule magnesium citrate 100 mg tablet 100 mg PO .TID AC 01/19/22 12/11/23 06/18/23 17:00 zinc 50 mg tablet 50 mg PO QAM 01/19/22 12/11/23 06/18/23 17:00 potassium citrate 99 mg capsule 99 mg PO .TID 05/01/22 12/11/23 06/18/23 17:00 calcium citrate 250 mg PO .TID 08/30/22 12/11/23 06/18/23 17:00 Active Medications Generic Name Dose Route Start Last Admin Trade Name Freq PRN Reason Stop Dose Admin Sodium Chloride 1,000 mls @ 100 mls/hr 12/11/23 15:00 12/11/23 15:10 Nss IV 01/10/24 14:59 100 mls/hr .Q10H CASIE Administration Past Medical History Medical History History of recent hospitalization 05/2023 [facility] - secondary to an obstructing right ureteral calculus with resistant E. coli urosepsis Ureteral stent present History of COVID-19 diagnosed 2019--mild symptoms, no symptoms now Benign positional vertigo IBS (irritable bowel syndrome) Atelectasis per pt was a hx, had had to use an incentive spirometry--no issues currently (states she rides her bike 30 miles without any breathing issues) History of anesthesia reaction 04/2019 "intubation induced apnea" @ [facility] in [place] was told this during cystoscopy--per pt has had 2 cystoscopy procedures since then with no issues at all Nephrolithiasis Medullary sponge kidney Dilatation of left ureter History of nephrolithiasis Past Family History Family History Family/Other Kidney stones Cancer Hypertension Mother Family history of reaction to anesthesia 1973 radical mastectomy--had difficulty time waking her Sister Family history of reaction to anesthesia difficulty waking/nausea Past Surgical History Surgical History History of dilatation and curettage History of bilateral tubal ligation History of strabismus surgery left History of cystoscopy multiple--started in 2013 "more than a dozen". cysto, L stent 03/21/23 emergently : MAC without issue H/O lithotripsy multiple. cysto, litho 01/09/23: [place]: LMA#4 without issue Social History Smoking Status: Never smoker Do You Dip or Chew Tobacco: No Hx Alcohol Use: No Hx Substance Use: No substance use type: does not use Physical Exam Vital Signs Last Vital Signs Temp 37.7 C H 12/11/23 13:15 Pulse 79 12/11/23 15:03 Resp 20 12/11/23 15:03 BP 118/76 12/11/23 15:03 Pulse Ox 95 12/11/23 15:03 O2 Del Method Room Air 12/11/23 12:50 Testing Laboratory Results 12/11/23 11:44 12/11/23 11:44 Urine Color Dark Yellow 12/11/23 12:53 Urine Appearance Cloudy (Clear) A 12/11/23 12:53 Urine pH 7.0 (4.5-7.5) 12/11/23 12:53 Ur Specific [place] 1.010 (1.000-1.030) 12/11/23 12:53 Urine Protein 1+ (Negative) H 12/11/23 12:53 Urine Glucose (UA) Negative (Negative) 12/11/23 12:53 Urine Ketones Negative (Negative) 12/11/23 12:53 Urine Nitrite Positive (Negative) A 12/11/23 12:53 Ur Leukocyte Esterase 3+ (Negative) H 12/11/23 12:53 Urine WBC (Auto) >50 /hpf (0-5) H 12/11/23 12:53 Urine RBC (Auto) 3-5 /hpf (0-2) H 12/11/23 12:53 U Hyaline Cast (Auto) 3-5 /lpf (0-2) H 12/11/23 12:53 U Epithel Cells (Auto) 0-2 /hpf (0-2) 12/11/23 12:53 Urine Bacteria (Auto) 4+ (None Seen) H 12/11/23 12:53 12/11/23 11:52 POC Glucose (other) 103 H Electrocardiogram Date: 01/09/23 Findings: + NSR @ (73)
[2023-12-11] MEDS ORDERED: ONDANSETRON INJ 2 MG/ML 2 ML VIAL IV PRN (15:42)
[2023-12-11] MEDS ORDERED: fentaNYL citrate PF 100 MCG/2 ML VIAL IV PRN (15:42)
[2023-12-11] MEDS ORDERED: ATROPINE SULFATE 0.1 MG/ML 10ML SYR IV PRN (15:42)
[2023-12-11] MEDS ORDERED: DEXAMETHASONE SOD INJ 4 MG/ML VIAL ONE (15:51)
[2023-12-11] MEDS ORDERED: PROPOFOL IV EMULSION 10 MG/ML 20 ML VIAL IV ONE (15:51)
[2023-12-11] MEDS ORDERED: ONDANSETRON INJ 2 MG/ML 2 ML VIAL ONE (15:51)
[2023-12-11] MEDS ORDERED: fentaNYL citrate PF 100 MCG/2 ML VIAL ONE (15:52)
[2023-12-11] MEDS ORDERED: SCOPOLAMINE 1 MG/72 HR TDSY PATCH TD ONE (15:58)
--- NOTE | 2023-12-11 16:23 | Operative Report ---
PG Post Operative Report Pre & Post Diagnosis Operation Date: 12/11/23 10:20 Pre-Op Diagnosis: (1) Left ureteral stone: (2) Left flank pain: Post-Op Diagnosis: (1) Left ureteral stone: (2) Left flank pain: I identified the patient and participated in the time-out.: Yes Procedure Operation Date: 12/11/23 10:20 Actual Procedures p Cystoscopy, Left Ureteral Stent Placement(Left) - Lance Geronimo MD Surgeon Lance Geronimo MD Filling Machine Tender none Estimated Blood Loss 0 Findings Consistent with Post-Op Diagnosis Specimens none Description of Procedure The patient was identified in the preoperative holding area, appropriate informed consents were reviewed and completed and the patient was transferred to the operative suite. Upon arrival, appropriate antibiotics and anesthesia were administered and the patient was placed in dorsal lithotomy position and prepped and draped in sterile fashion. To begin the case to pass 21 Spanish cystoscope with 30 degree lens and visual ceramics machine operator peer inspection of the bladder was unremarkable. She had some small stone fragments within the bottom of the bladder but otherwise no abnormalities identified. I turned my attention to the left UO and cannulated with a sensor wire. Immediately after passing the wire there is a discharge of small stone fragments and murky appearing material. I advanced the wire to the kidney and utilized a 5 Spanish open-ended catheter to make sure the distal ureter was clear. I then withdrew the 5 Spanish open-ended catheter and placed a 6 Spanish by 26 cm double-J stent seeing good curl in the kidney as well as the bladder. There was good drainage through and around the stent. The case was concluded and she was reversed of anesthesia and taken to the recovery room in stable condition. There were no complications. I attest to the content of the Intraoperative Record and any orders documented therein. Any exceptions are noted below.
--- NOTE | 2023-12-11 16:42 | Anesthesiology Progress Note ---
Date of Service December 11, 2023 Anesthesia Post Procedure Vital Signs Vital Signs: Temp Pulse Pulse Resp BP BP Pulse Ox 12/11/23 16:35 63 16 104/59 L 95 12/11/23 16:27 36.2 C L 69 16 95/60 L 92 12/11/23 15:41 37.0 C 74 18 137/93 93 12/11/23 15:03 79 20 118/76 95 12/11/23 14:30 76 15 95 12/11/23 14:30 119/72 12/11/23 14:03 72 14 95 12/11/23 13:33 79 16 91 12/11/23 13:15 37.7 C H 12/11/23 13:00 136/88 12/11/23 13:00 85 15 91 12/11/23 12:55 89 12/11/23 12:50 37.9 C H 94 H 20 129/85 93 12/11/23 12:20 38.4 C H 101 H 18 145/101 H 93 12/11/23 11:27 36.8 C 133 H 20 160/99 H 94 O2 Del Method O2 Flow Rate 12/11/23 16:35 Oxymask 3 12/11/23 16:27 Oxymask 8 12/11/23 15:41 Room Air 12/11/23 15:03 12/11/23 14:30 12/11/23 14:30 12/11/23 14:03 12/11/23 13:33 12/11/23 13:15 12/11/23 13:00 12/11/23 13:00 12/11/23 12:55 12/11/23 12:50 Room Air 12/11/23 12:20 Room Air 12/11/23 11:27 Room Air Pain Intensity Flank: Pain Intensity: 5 Transfer of Care Handoff Completed per policy Notes Mental Status: alert / awake / arousable Patient Amnestic to Procedure: Yes Nausea / Vomiting: adequately controlled Pain: adequately controlled Airway Patency, RR, SpO2: stable & adequate BP & HR: stable & adequate Hydration State: stable & adequate Anesthetic Complications: no major complications apparent
--- NOTE | 2023-12-11 16:44 | Fluoroscopy Report ---
[place] [facility] CLINICAL HISTORY: LT STENT TECHNIQUE: 1 views were obtained with the C-arm in the OR with the above procedure. Total fluoroscopy time was 8.9 seconds. Radiation dose was 2.49 mGy. Comparison: Comparison is made to CT abdomen pelvis 12/11/2023 FINDINGS/IMPRESSION: Intraoperative images were obtained of left stent placement. In the final images , the stent is in satisfactory position. Please correlate with intraoperative fluoroscopy and operative report. ACT 112: Negative or not required by law. Electronically signed by: Jose Goel M.D. 12/11/2023 4:43 PM
[2023-12-11] MEDS: CALCIUM CITRATE 950 MG TAB PO SCH (18:05)
[2023-12-11 19:45] VITALS: RESP 18
[2023-12-12 03:12] LABS: A calco-baum cmplx NotReported Not Detected (NotDetected); Bact fragilis Not Reported Not Detected (NotDetected); CTX-M Resistant Gene Not Detected (NotDetected); Efaecalis Not Reported Not Detected (NotDetected); Efaecium Not Reported Not Detected (NotDetected); IMP Resistant Gene Not Detected (NotDetected); KPC Resistant Gene Not Detected (NotDetected); Lmonocyt Not Reported Not Detected (NotDetected); NDM Resistant Gene Not Detected (NotDetected); OXA 48 Like Resistant Gene Not Detected (NotDetected); Staph lugdunensis Not Reported Not Detected (NotDetected); Staph spp. Not Reported Not Detected (NotDetected); Staphaureus Not Reported Not Detected (NotDetected); Staphepi Not Reported Not Detected (NotDetected); Strep agal(GrpB) Not Reported Not Detected (NotDetected); Strep pneum Not Reported Not Detected (NotDetected); Strep pyog (GrpA) Not Reported Not Detected (NotDetected); Strep spp Not Reported Not Detected (NotDetected); VIM Resistant Gene Not Detected (NotDetected); mcr-1 Colistin Resistant Gene Not Detected (NotDetected)
[2023-12-12 03:13] LABS: Blood Culture Id Panel See PCR Comment (NotDetected); C auris Not Reported Not Detected (NotDetected); Calbicans Not Reported Not Detected (NotDetected); Candida glabrata Not Reported Not Detected (NotDetected); Candida krusei Not Reported Not Detected (NotDetected); Cneoformans/gatti Not Reported Not Detected (NotDetected); Cparapsilosis Not Reported Not Detected (NotDetected); E cloacae compx Not Reported Not Detected (NotDetected); Enterobacterales DETECTED (NotDetected); Enterobacterales Not Reported DETECTED (NotDetected); Escherichia coli Not Reported DETECTED (NotDetected); H influenzae Not Reported Not Detected (NotDetected); K aerogenes Not Reported Not Detected (NotDetected); Koxytoca Not Reported Not Detected (NotDetected); Kpneumoniae grp Not Reported Not Detected (NotDetected); N meningitidis Not Reported Not Detected (NotDetected); P aeruginosa Not Reported Not Detected (NotDetected); Proteus spp Not Reported Not Detected (NotDetected); Salmonella spp Not Reported Not Detected (NotDetected); Smarcescens Not Reported Not Detected (NotDetected); Stenmaltophilia Not Reported Not Detected (NotDetected)
[2023-12-12 06:30] LABS: Alanine Aminotransferase 13 U/L (7-52); Albumin Globulin Ratio 1.1 (0.9-2); Albumin Level 3.3 gm/dl (3.4-5.0); Alkaline Phosphatase 44 U/L (34-104); Anion Gap 6 (3-11); BUN Creatinine Ratio 19.6 (10-20); Bilirubin,Total 0.3 mg/dl (0.2-1.0); Blood Urea Nitrogen 42 mg/dl (6-23); Calcium 9.3 mg/dl (8.6-10.3); Carbon Dioxide 17 mmol/L (21-32); Chloride 116 mmol/L (98-107); Creatinine Clr Calc Pharmacy 36.4 ml/min; Est GFR (African American) 28.3 ml/min; Est GFR (Non-African American) 24.4 ml/min; Globulin 3.1 gm/dl (2.5-4.0); Glucose 112 mg/dl (70-99(Fasting)); Magnesium 2.8 mg/dl (1.7-2.4); Sodium 139 mmol/L (136-145); Total Protein 6.4 gm/dl (6.0-8.3)
[2023-12-12 06:40] LABS: Basophils # (auto) 0.01 K/uL (0.00-0.20); Basophils % (auto) 0.1 %; Hematocrit (blood only) 37.1 % (37.0-47.0); Hemoglobin 12.3 g/dl (12.0-16.0); Immature Granulocytes # (auto) 0.03 K/uL (0.01-0.20); Immature Granulocytes % (auto) 0.4 %; Lymphocytes # (auto) 0.76 K/uL (1.20-3.40); Lymphocytes % (auto) 9.4 %; Mean Corpuscular Hemoglobin 30.9 pg (25.0-34.0); Mean Corpuscular Hgb Conc 33.2 g/dL (32.0-36.0); Mean Corpuscular Volume 93.2 fL (80.0-100.0); Mean Platelet Volume 9.6 fL (9.4-12.4); Monocytes # (auto) 0.29 K/uL (0.11-0.59); Monocytes % (auto) 3.6 %; Neutrophils # (auto) 6.97 K/uL (1.40-6.50); Neutrophils % (auto) 86.5 %; Platelet Count 221 K/uL (130-400); RDW Coefficient of Variation 13.4 % (11.5-14.5); RDW Standard Deviation 46.1 fL (36.4-46.3); Red Blood Count 3.98 M/uL (4.20-5.40); White Blood Count 8.06 K/ul (4.8-10.8)
--- NOTE | 2023-12-12 07:45 | Hospitalist Progress Note ---
Date of Service December 12, 2023 Assessment & Plan (1) Left ureteral stone: (2) Sepsis: (3) Recurrent nephrolithiasis: (4) UTI (urinary tract infection): Plan Assessment & Plan (1) Left ureteral stone: 1. Left-sided ureteral calculus 7 mm at the UVJ. - With associated left-sided hydronephrosis. Patient has a longstanding history of recurrent nephro-ureterolithiasis. - Urology consulted: left ureteral stent placed 12/12/23 AM - this morning subjectively much better, w/out pain (01/10 on pain scale) 2) Urosepsis - Leukocytosis, fever, tachycardia and an elevated procalcitonin on admission. - Admission: WBC, 17.8; Procal, 0.59; Temp, 38.4 C; HR, 133 - UA: Ur blood, 2+; Ur LE, 3+; Ur Nit, pos; Ur WBC, > 50; Ur Milton, 4+ - Blood Cx, anaerobic culture, + for gram neg bacilli; Urine Cx, + for E. coli --> still pending sensitivities - Rocephin, IV, 2 g, q24 hrs - Continue with volume resuscitate. 3. CKD 3B stable. - Cr, 2.14 (baseline 2 - 2.5) 4. Obesity. 5. Vitamin D deficiency. Code status: Full code Disposition: PCU-Tele FENGI: Heart-healthy, gluten-free, dairy-free Admission and Anticipated Discharge Date Admission Date: December 11, 2023 Supervising Physician Co-Signing Physician Notes I personally examined the patient and verified all duran points of history and exam, discussed case, and agree with decision making with Dr Morocho feeling much better. Feels like coming in sooner is definitely a benefit. Appreciates care. Vitals noted, in general she is awake and alert pleasant no distress. HEENT normocephalic atraumatic mucous membranes moist. Breathing unlabored no accessory muscle use good effort. Skin shows no rashes no pallor or icterus. Recurrent kidney stones/ureteral obstruction with superimposed infection and subsequent gram-negative bacteremia present on admission, superimposed on stage IV CKDfortunately more stable. Continue current care pending culture and sensitivity data. Hopefully home soon. Appreciate urology assistance. DVT prophylaxisambulation Subjective Patient is 58 yo F who last week passed several kidney stones she has a history of multiple kidney stones in the past. Over the weekend she began to have a low-grade fever she spoke with urology on-call, Dr. Engle, who recommended watchful waiting. On Sunday her pain actually improved a little bit after OTC Ultram. However on day of admission her pain became severe, fever returned. Therefore she presented the ER for further evaluation and treatment. In the ER she was febrile, blood pressure was satisfactory. Patient was tachycardic on presentation 130 bpm. Urine looks infected. Patient had blood cultures in the ER. Had 2 g of IV Rocephin and 8 mg of IV morphine and 1 L of normal saline. CAT scan demonstrated a 7 mm left deep UVJ stone. With as sociated left-sided hydronephrosis. Creatinine showed chronic kidney disease with a baseline creatinine approximately 2.3. This morning the patient is s/p left ureteral stent placement and feeling much better subjectively, with very little pain (0/10 on severity scale). No fevers, chills, no abdominal pain, CVA tenderness, or groin pain. Review of Systems Constitutional: no fever, no chills and no fatigue Respiratory: no cough, no chest congestion and no dyspnea Cardiovascular: no chest pain and no palpitations Gastrointestinal: no abdominal pain, no nausea, no vomiting and no change in bowel habits Genitourinary: no dysuria, no difficulty urinating, no urinary frequency and no flank pain Neurologic: no tingling and no numbness Physical Exam Constitutional: WD/WN, vitals as above Respiratory: normal respiratory effort, lungs clear to auscultation Cardiovascular: RRR, no murmur, no edema Extremities: normal capillary refill; no calf tenderness and no pedal edema Gastrointestinal (Abdomen): normal bowel sounds, soft, nontender, no hepatosplenomegaly Psychiatric: A+Ox3, euthymic affect Genitourinary: normal external appearance; no CVA tenderness and no urethral tenderness Results & Data Results & Data Vital Signs (Past 12 Hours) Vital Signs Temp Pulse Pulse Resp BP Pulse Ox O2 Del Method 12/12/23 03:16 36.4 C L 83 18 91/58 L 91 Room Air 12/11/23 22:38 36.5 C 71 18 100/61 94 Room Air 12/11/23 21:58 52 L 12/11/23 19:44 36.5 C 65 18 107/72 92 Room Air (2) Sepsis Sepsis acute organ dysfunction status: unspecified Sepsis type: sepsis due to unspecified organism Qualified Code(s): A41.9 - Sepsis, unspecified organism
[2023-12-12 07:52] LABS: Potassium 4.3 mmol/L (3.5-5.1)
[2023-12-12] MEDS: CHOLECALCIFEROL 25 MCG (1000 UNITS) TAB PO SCH (08:28)
[2023-12-12] MEDS: CALCIUM CITRATE 950 MG TAB PO SCH (08:44)
--- NOTE | 2023-12-12 09:53 | Urology Progress Note ---
Date of Service December 12, 2023 Assessment & Plan (1) Left ureteral stone: (2) S/P ureteral stent placement: (3) Complicated urinary tract infection: Plan: 58 yo/F admitted for left ureteral calculi, fever and suspected UTI POD #1 s/p left ureteral stent placement Afebrile overnight, hemodynamically stable Subjectively feeling much better today Labs reviewedcreatinine 2.14, WBC 8.06 Urine culture 12/09 prelim with E. coli Urine and blood cultures 12/10 showing gram-negative bacilli Recommend continue broad-spectrum antibiotics and narrow per sensitivity data when available Tolerating left ureteral stent without bother Continue supportive care, antibiotics and medical management per hospital medicine service Will arrange follow-up with our service for definitive stone management after acute infection has been treated will sign off, please contact our service with any additional questions or concerns Admission and Anticipated Discharge Date Admission Date: December 11, 2023 Subjective Patient seen and examined at bedside this morning She is awake and sitting up in bedside chair Reports she is feeling much better today Denies flank pain No fever or chills overnight No nausea or vomiting Voiding spontaneously, dysuria has improved Review of Systems Constitutional: as per Subjective / HPI Gastrointestinal: as per Subjective / HPI Genitourinary: as per Subjective / HPI Physical Exam Constitutional: well developed and well nourished; no acute distress Respiratory: normal respiratory effort; no respiratory distress and no labored breathing Gastrointestinal (Abdomen): Inspection/Auscultation: abdomen normal to inspec tion Musculoskeletal: Head/Neck/Chest: normocephalic Neurologic: moves all extremities and awake Psychiatric: Orientation: alert and oriented x 3 Results & Data Vital Signs (Past 12 Hours) Vital Signs Temp Pulse Pulse Resp BP Pulse Ox O2 Del Method 12/12/23 07:42 36.4 C L 48 L 18 107/68 100 Room Air 12/12/23 07:37 46 L 12/12/23 03:16 36.4 C L 83 18 91/58 L 91 Room Air 12/11/23 22:38 36.5 C 71 18 100/61 94 Room Air 12/11/23 21:58 52 L PG Care Time/CCT Total # of Minutes Spent Total Time Spent with Patient: Total time spent is greater than 50% in coordination of care (as documented) at patient's floor/unit and/or counseling patient: Coding Level of Care Code 97536 SUB INP/OBS CARE Diagnoses Left ureteral stone N20.1 S/P ureteral stent placement Z96.0 Complicated urinary tract infection N39.0
[2023-12-12] MEDS ORDERED: CALCIUM CITRATE 950 MG TAB PO SCH ×2 (11:30)
--- NOTE | 2023-12-12 13:13 | Billing Data ---
Date of Service December 12, 2023 Coding Level of Care Code 90287 SUB INP/OBS CARE MIN
[2023-12-12] MEDS: cefTRIAXone SODIUM 2,000 MG/50 ML BAG IV SCH (13:24)
--- NOTE | 2023-12-12 16:10 | Electrocardiogram Report ---
Test Reason : Blood Pressure : / mmHG Vent. Rate : 060 BPM Atrial Rate : 060 BPM P-R Int : 154 ms QRS Dur : 086 ms QT Int : 412 ms P-R-T Axes : 048 013 050 degrees QTc Int : 412 ms Normal sinus rhythm with sinus arrhythmia Normal ECG When compared with ECG of 11-DEC-2023 12:05, (unconfirmed) Vent. rate has decreased BY 49 BPM Non-specific change in ST segment in Lateral leads Nonspecific T wave abnormality, improved in Lateral leads Confirmed by Ankit Barrera ([id number]) on 12/12/2023 4:09:58 PM Referred By: REFERRED SELF Confirmed By:Ankit Barrera
--- NOTE | 2023-12-12 16:32 | Electrocardiogram Report ---
Test Reason : Blood Pressure : / mmHG Vent. Rate : 109 BPM Atrial Rate : 109 BPM P-R Int : 148 ms QRS Dur : 080 ms QT Int : 314 ms P-R-T Axes : 035 000 083 degrees QTc Int : 422 ms Sinus tachycardia Poor R wave progression, consider anterior PA vs. lead placement vs. LVH Abnormal ECG When compared with ECG of 09-JAN-2023 17:43, Vent. rate has increased BY 36 BPM Nonspecific T wave abnormality, worse in Lateral leads Confirmed by Ankit Barrera ([id number]) on 12/12/2023 4:32:31 PM Referred By: REFERRED SELF Confirmed By:Ankit Barrera
--- NOTE | 2023-12-13 07:33 | Discharge Summary ---
Date of Service December 13, 2023 Admission HPI Per Admitting Provider Is a pleasant 58-year-old female who last week passed several kidney stones she has a history of multiple kidney stones in the past. Over the weekend she began to have a low-grade fever she spoke with urology on-call, Dr. Engle, who recommended watchful waiting. On Sunday her pain actually improved a little bit. She took some [id number] Ultram. However today her pain became severe and the fever returned and is more elevated. Therefore she presented the ER for further evaluation and treatment. In the ER she was febrile, blood pressure was satisfactory. Patient was tachycardic on presentation 130 bpm. Urine looks infected. Patient had blood cultures in the ER. Had 2 g of IV Rocephin and 8 mg of IV morphine and 1 L of normal saline. CAT scan demonstrated a 7 mm left deep UVJ stone. With associa michael left-sided hydronephrosis. Creatinine showed chronic kidney disease with a baseline creatinine approximately 2.3. Urological consultation was obtained in the ER tentative plan is to take the pat ient to the OR for cystoscopy stone extraction and stent placement. Will continue IV fluids and IV antibiotics as needed antiemetics and analgesics. The patient NPO. Admission Exam Per Admitting Provider In General: In general pleasant 58-year-old female [place] by her at the time of my examination. She interacts appropriate pleasantly. Her pain is fairly well-controlled with the 8 mg morphine given in the ER. Her skin is warm to the touch she is afebrile currently. HEENT: Normocephalic atraumatic pupils are equal round and reactive to light bilaterally. No scleral icterus no conjunctival injection external auditory canals are patent septum is in the midline nose is without discharge oral mucosa is pink and moist without lesion. NECK: Supple no rigidity no lymphadenopathy no thyromegaly no carotid bruits no JVD no masses. HEART: Regular rate and rhythm I do not appreciate any ectopy or rub. No murmur. LUNGS: Clear to auscultation bilaterally and anteriorly with no evidence of adventitious sounds/wheezes rales or rhonchi. ABDOMEN: Soft nontender, no rebound, no peritoneal signs, positive bowel sounds, no appreciable organomegaly. EXTREMITIES: Intact, no peripheral cyanosis, clubbing or edema. Strength is 5 out of 5 in extremities x4, no pathological reflexes. NEUROLOGICAL: Cranial nerves II through XII are grossly intact with no focal deficit elicited upon examination. No tremor. Principal Diagnosis s/p left ureteral stent Uro-sepsis Discharge Exam Constitutional WD/WN, vitals as above Respiratory normal respiratory effort, lungs clear to auscultation Cardiovascular RRR, no murmur, no edema Extremities: normal capillary refill; no calf tenderness and no pedal edema Gastrointestinal (Abdomen) normal bowel sounds, soft, nontender, no hepatosplenomegaly Psychiatric A+Ox3, euthymic affect Genitourinary normal external appearance; no CVA tenderness and no urethral tenderness Discharge Data Allergies Allergy/AdvReac Type Severity Reaction Status Date / Time Iodinated Contrast Media Allergy Severe Difficulty Verified 12/11/23 13:44 Breathing lactose Allergy Severe (dairy) Verified 12/11/23 13:44 Difficulty Breathing milk Allergy Severe Difficulty Verified 12/12/23 08:56 Breathing penicillin G Allergy Severe breathing Verified 12/11/23 13:44 difficulty Sulfa (Sulfonamide Allergy Severe Difficulty Verified 12/11/23 13:44 Antibiotics) Breathing adhesive tape Allergy Mild itching Verified 12/11/23 13:44 latex Allergy Mild Rash Verified 12/11/23 13:44 soy Allergy Unknown Unknown Verified 12/11/23 13:44 midazolam [From Versed] AdvReac Intermediate "i just Verified 12/11/23 13:44 get a lot of vomiting" Consultations 12/11/23 14:31 Consult Urology Stat ED Decision to Admit Stat Procedures Performed Operation Date: 12/11/23 10:20 Actual Procedures p Cystoscopy, Left Ureteral Stent Placement(Left) - Lance Geronimo MD Ordered Studies 12/11/23 FL KUB Routine 12/11/23 11:56 CT abd pelvis wo con Stat Hospital Course (1) Left ureteral stone: (2) Sepsis: (3) Recurrent nephrolithiasis: (4) UTI (urinary tract infection): Plan Assessment & Plan (1) Left ureteral stone: 1. Left-sided ureteral calculus 7 mm at the UVJ. - With associated left-sided hydronephrosis. Patient has a longstanding history of recurrent nephro-ureterolithiasis. - Urology consulted: left ureteral stent placed 12/12/23 AM - this morning, as yesterday, subjectively much better, w/out pain (0/10 on pain scale) - will F/U with Urology as outpt on December 17 2) Urosepsis - Leukocytosis, fever, tachycardia and an elevated procalcitonin on admission. - Admission: WBC, 17.8; Procal, 0.59; Temp, 38.4 C; HR, 133 - UA: Ur blood, 2+; Ur LE, 3+; Ur Nit, pos; Ur WBC, > 50; Ur Milton, 4+ - Rocephin, IV, 2 g, q24 hrs during hospital stay --> 3 inpatient doses - Blood Cx, anaerobic culture, + for gram neg bacilli --> sensitivities still pending - Urine Cx, + for E. coli --> sensitivities: sensitive to Augmentin, Ceftriaxone - patient w/ allergy to penicillin as a child (hives) and is considering getting re-tested for allergy via [employer] - consider Prescribing PPi for reflux w/ abx: pantoprazole, 40 mg, PO, daily for 2 weeks - Cefdinir, 300 mg, BID, PO, for 8 days 3. CKD 3B stable. - Cr, 2.14 (baseline 2 - 2.5) 4. Obesity. 5. Vitamin D deficiency. Total Time Total Time Spent Total Time Spent (In Minutes): <30 Discharge Plan Discharge Items Patient Disposition: Home - Self-Care Reason For Visit: K-STONE Discharge Diagnosis: Urosepsis s/p left ureteral stent Activity: As commented below Activity Comment: resume previous activity as recommended by urology Non-emergency contact: Primary Care Provider and Urologist Call non-emergency contact if: you have any medication questions, your symptoms worsen and your temperature is above 101.5 Follow-up/Referrals: Arvin Weller MD [Primary Care Provider] - Dietitian Info: Dairy free (patient w/ casein allergy) Diet: Gluten Free and Other - See Diet Comment Addtl Attending Provider Instructions: You were admitted to the hospital for left CVA tenderness in context of Hx of kidney stones. You were treated with surgery (l. ureteral stent placement) and IV antibiotics (Ceftriaxone, IV, 2 g, q24 hrs) A discharge summary will be sent to your primary care physician to ensure continuity of care. Please bring this discharge summary with you to your next office appointment so that your provider can review it at that time. Follow-up appointments: We have requested a follow-up appointment with your primary care physician and urology within one week of discharge. Please call their office if you do not hear from them. Keep all your follow-up appointments as already scheduled. If you cannot make an appointment, notify your provider. Medications: Your medication list has been reviewed and reconciled upon discharge to ensure accuracy and continuity of care. An updated list of all your medications is included with your hospital discharge paperwork. Please review this list closely, and make note of any changes. We sent a new medication called cefdinir to your pharmacy. Take cefdinir, 300 mg/1tablet, twice a day, for 8 more days. We sent a new medication called pantoprazole to your pharmacy. Take pantoprazole, 40 mg/one tablet, once a day, for 14 days. Take your medications as instructed; do not skip a dose of your medicines. Make sure all of your doctors know every medicine you are taking (including rdab-mwv-nwezmnd medicines, vitamins, and supplements). Call your primary care provider before taking any new medicines (including nptl-ovy-tktltrb medicines, vitamins, and supplements), because some of these may interact with your current medications, or may make your symptoms worse. Tell your primary care provider if you cannot afford your medications. CONTACT YOUR PRIMARY CARE PROVIDER if you experience any of the following: burning with urination, increased urinary frequency abdominal or flank tenderness, fevers, chills Difficulty following your treatment plan, or difficulty taking medications CALL 911 OR GO TO THE EMERGENCY DEPARTMENT if you experience any of the following: Sudden, severe abdominal pain or nausea/vomiting Severe chest pain, or chest pain that radiates (moves) to your jaw or arm Sudden, severe shortness of breath or difficulty breathing Thank you for allowing us to participate in your care Pending Studies at Discharge: Yes Studies:: Sensitivities for patient's blood cultures Stand-Alone Forms: [employer], Smoking Cessation Medications and DC Order Prescriptions: New cefdinir 300 mg capsule 300 mg PO Q12H 8 Days Qty: 16 0RF pantoprazole 40 mg tablet,delayed release (DR/EC) 40 mg PO DAILY Qty: 14 0RF Continued calcium citrate 250 mg calcium tablet 250 mg PO .TID AC Rx Instructions: HAS TO HAVE 20MIN BEFORE MEALS zinc 50 mg tablet 50 mg PO QAM cholecalciferol (vitamin D3) 25 mcg (1,000 unit) capsule 25 mcg PO QAM magnesium citrate 100 mg tablet 100 mg PO .TID AC Rx Instructions: hAS TO HAVE 20 MIN BEFORE MEALS potassium citrate 99 mg capsule 99 mg PO .TID AC Rx Instructions: has to have 20 min before meals. Discharge Orders: Discharge Order (Routine); Ordered 12/13/23 Ordered By: Lance Blanca/Other Patient Handouts: Pantoprazole Delayed Release Oral Tablet, Cefdinir Oral Capsule Admission Data Admit Date/Time: 12/11/23 14:59 Attending Provider: Booker Hendrickson Admit Provider: Lamont Weller Primary Care Provider: Arvin Weller Other Providers: Lance Geronimo; Lamont Weller Other Interventions: Discharge Summary Assessment (RN) Last Done: 12/13/23 14:10 Supervising Physician Co-Signing Physician Notes I personally examined the patient and verified all duran points of history and exam, discussed case, and agree with decision making with Dr Morocho feeling much better. Would very much like to go home. Vitals noted, in general she is awake and alert pleasant no distress. HEENT normocephalic atraumatic mucous membranes moist. Breathing unlabored no accessory muscle use good effort. Skin shows no rashes no pallor or icterus. Recurrent kidney stones/ureteral obstruction with superimposed infection and subsequent gram-negative bacteremia present on admission, superimposed on stage IV CKDfortunately more stable. Feels much better, clinically looks much better. Discussed with patient that her blood cultures are still showing gram- negative rods not yet finalizedbut high probability will match her urine culture. Discussed that normally I would prefer to keep her inpatient until her blood cultures are finalized, but given how good she feels and examines and how much she would like to go home, as long as she is okay with the uncertainty that we may need to change her antibiotics, or possibly even bring her back to the hospital depending on the final culture results, it would be reasonable to get her home with presumptive treatment. Furthermore, we gave her ceftriaxone at noon meaning that she is still covered with the antibiotic that appeared to be clinically affecting improvement until we likely have final culture results. Home on a presumptive course of cefdinir. Outpatient urology and PCP follow-up. DVT prophylaxisambulation
[2023-12-13 11:41] VITALS: BP 130/93; TEMP 98.1; O2SAT 98
[2023-12-13] MEDS: cefTRIAXone SODIUM 2,000 MG/50 ML BAG IV STA (12:04)
[2023-12-13 13:58] VITALS: PULSE 56
--- NOTE | 2023-12-13 19:05 | Billing Data ---
Date of Service December 13, 2023 Coding Level of Care Code 68638 IN/OBS DISCH 30 MIN/LESS
== END 2023-12-13 16:00 | disposition home or self-care (01) | DRG 854 ==
LOC: ED 11:24 → SUATTDRO 14:59 → 4W 14:59
DX: Z91.041 Radiographic dye allergy status; N13.6 Pyonephrosis; A41.51 Sepsis due to Escherichia coli [E. coli]; N18.4 Chronic kidney disease, stage 4 (severe); Q61.5 Medullary cystic kidney; Z88.2 Allergy status to sulfonamides; Z91.040 Latex allergy status; Z88.0 Allergy status to penicillin; E66.9 Obesity, unspecified; E55.9 Vitamin D deficiency, unspecified

== ENCOUNTER 2024-01-28 01:15 | Observation (INO) ==
[2024-01-28 01:55] LABS: Appearance Urine Cloudy (Clear); Bacteria Urine Automated 4+ (None Seen); Bilirubin Urine Negative (Negative); Blood Urine 2+ (Negative); Cast Urine Automated 0-2 /lpf (0-2); Color Urine Yellow; Epithelial Cell Urine Auto 0-2 /hpf (0-2); Glucose Urine UA Negative (Negative); Ketones Urine Negative (Negative); Leukocyte Esterase Urine 3+ (Negative); Nitrite Urine Positive (Negative); Protein Urine 1+ (Negative); RBC Urine Automated 0-2 /hpf (0-2); Specific Gravity Urine 1.008 (1.000-1.030); Urobilinogen Urine Negative (Negative); WBC Urine Automated >50 /hpf (0-5)
[2024-01-28] MEDS: ONDANSETRON INJ 2 MG/ML 2 ML VIAL IV STA (01:57)
[2024-01-28 01:58] LABS: Basophils # (auto) 0.08 K/uL (0.00-0.20); Basophils % (auto) 0.7 %; Eosinophils # (auto) 0.32 K/uL (0.00-0.50); Eosinophils % (auto) 2.7 %; Hematocrit (blood only) 47.2 % (37.0-47.0); Hemoglobin 15.3 g/dl (12.0-16.0); Immature Granulocytes # (auto) 0.04 K/uL (0.01-0.20); Immature Granulocytes % (auto) 0.3 %; Lymphocytes % (auto) 10.8 %; Mean Corpuscular Hemoglobin 30.8 pg (25.0-34.0); Mean Corpuscular Hgb Conc 32.4 g/dL (32.0-36.0); Mean Platelet Volume 9.8 fL (9.4-12.4); Monocytes # (auto) 0.83 K/uL (0.11-0.59); Monocytes % (auto) 6.9 %; Neutrophils # (auto) 9.43 K/uL (1.40-6.50); Neutrophils % (auto) 78.6 %; Platelet Count 238 K/uL (130-400); RDW Coefficient of Variation 14.2 % (11.5-14.5); RDW Standard Deviation 49.1 fL (36.4-46.3); Red Blood Count 4.97 M/uL (4.20-5.40)
[2024-01-28] MEDS: KETOROLAC 30 MG/ML VIAL IV STA (01:58)
[2024-01-28] MEDS: ACETAMINOPHEN 1,000 MG/100 ML VIAL IV STA (01:58)
[2024-01-28] MEDS: SODIUM CHLORIDE 0.9% 1,000 ML IV ONE (01:58)
[2024-01-28 02:09] LABS: Albumin Globulin Ratio 1.5 (0.9-2); Albumin Level 4.7 gm/dl (3.4-5.0); BUN Creatinine Ratio 17.8 (10-20); Bilirubin,Total 0.4 mg/dl (0.2-1.0); Calcium 11.2 mg/dl (8.6-10.3); Creatinine Clr Calc Pharmacy 31.8 ml/min; Est GFR (African American) 23.8 ml/min; Est GFR (Non-African American) 20.5 ml/min; Globulin 3.2 gm/dl (2.5-4.0); Potassium 3.8 mmol/L (3.5-5.1); Total Protein 7.9 gm/dl (6.0-8.3)
--- NOTE | 2024-01-28 02:30 | Emergency Department Note ---
Impression & Plan Right ureteral calculus, Hydronephrosis, right ED Provider Note CHIEF COMPLAINT: "Kidney stone" HISTORY OF PRESENT ILLNESS: This 58-year-old female patient presents to the emergency department via private vehicle for evaluation of "kidney stone". The patient reports a history of kidney stones. She states that they often cause infections and many times lead to sepsis. The patient states that she is closely followed by [facility] urology and reports a history of Medullary sponge kidney. At about 1030 this evening, she developed sudden onset of right flank pain and states she knows she was passing a stone. She states she feels like that about correction down the ureter and she developed worsening pain and a burning sensation in her right flank, so decided to come to the emergency department for evaluation. Patient states most recently when she passed a stone, she became septic with a high fever. She states she has had multiple stents placed and has had multiple surgeries due to the stones. The patient took a tramadol prior to arrival in the emergency department with minimal improvement. Patient did have associated nausea and vomiting. There has been no fever or chills. No dysuria, urinary frequency, urinary hesitancy, hematuria. REVIEW OF SYSTEMS: A 10 system review of systems was performed with positives and pertinent negatives listed in the history of present illness. All other systems were reviewed and are negative. ALLERGIES: Contrast dye, lactose, penicillin, sulfa, adhesive, Versed PHYSICAL EXAM: VITALS: Vitals are noted on the nurse's note and reviewed by myself. Vital signs stable. GENERAL: This is a 58-year-old female, in no acute distress, nondiaphoretic, well-developed well-nourished. SKIN: The skin was without rashes, erythema, edema, or bruising. There is no tenting of the skin. Capillary refill less than 2 seconds. HEAD: Normocephalic atraumatic. EYES: Conjunctivae without injection, sclerae without icterus. MOUTH: Mucous membranes moist. Tonsils are not enlarged. Pharynx without erythema or exudate. Uvula midline. Airway patent. Tongue does not deviate. NECK: Supple without nuchal rigidity. No lymphadenopathy. Cervical spine is nontender. No JVD. HEART: Regular rate and rhythm without murmurs gallops or rubs. LUNGS: Clear to auscultation bilaterally without wheezes, rales or rhonchi. No retractions or accessory muscle use. ABDOMEN: Positive bowel sounds x 4. Soft, nontender, without masses or organomegaly. No guarding or rebound tenderness. Right CVA tenderness. MUSCULOSKELETAL: No muscle atrophy, erythema, or edema noted. Full range of motion without joint tenderness in all extremities. No tenderness to palpation. Normal gait. Strength 5/5 throughout. NEURO: Patient was alert and oriented to person place and time. No focal neurological deficits. An order was placed for continuous municipal engineer. The monitor showed a normal sinus rhythm at a ventricular rate of 85 bpm, per my interpretation. Imaging as interpreted by myself and the radiologist revealed a large obstructing stone in the right ureter, with radiologist interpretation as above. I agree with the radiologist's findings as based upon my independent interpretation. Previous medical records to include previous ED visit and urine cultures were reviewed. The patient's infections are generally caused by E. coli and susceptible to Rocephin. EMERGENCY DEPARTMENT COURSE: The patient was seen and evaluated as above. The patient presents to the emergency department today for evaluation of "kidney stone". The patient does have a history of medullary sponge kidney and does frequently get kidney stones. Does follow closely with [facility] urology and has had multiple surgeries and stents placed for the stones. IV access was obtained, labs were drawn. Patient does have a mild leukocytosis of 12,000. No anemia or thrombocytopenia. Renal, hepatic function and electrolytes were completed and without acute abnormality. The patient does have an elevated creatinine of 2.47 which appears to be chronic. Lipase is 36. Urinalysis concerning for infection with positive nitrites, blood, bacteria. CT imaging was completed and was concerning for a large obstructing stone within the right ureter. I discussed the findings with the patient at bedside. Recommended admission given her history and symptoms. Patient was agreeable. Patient was started on IV Rocephin here in the emergency department. She was hydrated with fluids and medicated with acetaminophen and subsequently morphine and Zofran. I discussed the case with Dr. Garcia, [facility] hospitalist physician. She did agree to evaluate the patient for admission due to large, infected stone. Please see hospitalist dictation regarding ongoing management care of this patient. This visit is during a period of high volume and high acuity in the emergency department. I attest that I have personally reviewed the patient medication list. I attest that I have reviewed the patient's blood pressure and it was found to be elevated. GCS: 15 In the evaluation and treatment of this patient the following differential diagnoses were entertained: Renal colic, UTI, appendicitis, diverticulitis, mesenteric ischemia, aortic pathology, infections, inflammatory bowel disease, PUD, biliary pathology, as well as other pathologies. The chart was completed utilizing Twitter Speech voice recognition software. Grammatical errors, random word insertions, pronoun errors, and incomplete sentences are an occasional consequence of this system due to software limitations, ambient noise, and hardware issues. Any formal questions or concerns about the content, text, or information contained within the body of this dictation should be directly addressed to the provider for clarification. Past Med/Surg History Problem List UTI (urinary tract infection) Chronic renal failure (CRF), stage 3b Penicillin allergy Gallstones Recurrent nephrolithiasis Pyelonephritis due to Escherichia coli S/P ureteral stent placement Acute right flank pain (Acute) entered into EMR 05/29/23 Complicated urinary tract infection (Acute) 12/11/23 Hydronephrosis, right (Acute) Right ureteral calculus (Acute) WENDY (acute kidney injury) entered into EMR 03/21/23 and last activated 05/30/23 Sepsis (Acute) 12/11/23 Left ureteral stone (Acute) Encounter for pre-operative examination Left flank pain (Acute) Medical History UTI (urinary tract infection) admitted to [facility] w/UTI/sepsis 12/11/23, IV abx in hospital, sent home with oral abx. Chronic renal failure, stage 3b f/u dr. cortez mi History of recent hospitalization 05/2023 [facility] - secondary to an obstructing right ureteral calculus with resistant E. coli urosepsis 12/11/23 [facility]>sepsis, d/c 12/13/23 Ureteral stent present left side History of COVID-19 diagnosed 2019--mild symptoms, no symptoms now Benign positional vertigo IBS (irritable bowel syndrome) Atelectasis per pt was a hx, had had to use an incentive spirometry--no issues currently (states she rides her bike 30 miles without any breathing issues) History of anesthesia reaction 04/2019 "intubation induced apnea" @ [facility] in [place] was told this during cystoscopy--per pt has had 2 cystoscopy procedures since then with no issues at all Nephrolithiasis duplicate Medullary sponge kidney History of nephrolithiasis Surgical History H/O lithotripsy multiple. cysto, litho 01/09/23: [place]: LMA#4 without issue History of bilateral tubal ligation History of cystoscopy multiple--started in 2013 "more than a dozen". cysto, L stent 12/11/23, [facility] History of dilatation and curettage History of strabismus surgery left Family History Family/Other Kidney stones Cancer Hypertension Mother Family history of reaction to anesthesia 1973 radical mastectomy--had difficulty time waking her Sister Family history of reaction to anesthesia difficulty waking/nausea Social History Smoking Status: Never smoker Second Hand Exposure: Yes (hx as child); Do You Dip or Chew Tobacco: No; Hx Alcohol Use: No Hx Substance Use: No Preferred Language: Bolivian Communication Ability: Effective Computer Security Manager Required: No Beliefs That Will Affect Care: None Current Living Situation: Spouse Current Living Situation Comment: Lives with and 25yr old son Feels Safe at Home: Yes Assistive Devices: None Allergies Allergies Allergy/AdvReac Type Severity Reaction Status Date / Time Iodinated Contrast Media Allergy Severe Difficulty Verified 12/18/23 07:21 Breathing lactose Allergy Severe (dairy) Verified 12/18/23 07:21 Difficulty Breathing milk Allergy Severe Difficulty Verified 12/18/23 07:21 Breathing penicillin G Allergy Severe breathing Verified 12/18/23 07:21 difficulty Sulfa (Sulfonamide Allergy Severe Difficulty Verified 12/18/23 07:21 Antibiotics) Breathing adhesive tape Allergy Mild itching Verified 12/18/23 07:21 latex Allergy Mild Rash Verified 12/18/23 07:21 soy Allergy Unknown Unknown Verified 12/18/23 07:21 midazolam [From Versed] AdvReac Intermediate "i just Verified 12/18/23 07:21 get a lot of vomiting" Home Meds Home Medications Medication Instructions Recorded Confirmed cholecalciferol (vitamin D3) 25 25 mcg PO QAM 01/19/22 12/18/23 mcg (1,000 unit) capsule magnesium citrate 100 mg tablet 100 mg PO UD 01/19/22 12/18/23 zinc 50 mg tablet 50 mg PO QAM 01/19/22 12/18/23 potassium citrate 99 mg capsule 99 mg PO UD 05/01/22 12/18/23 calcium citrate 250 mg PO UD 08/30/22 12/18/23 pantoprazole 40 mg tablet,delayed 40 mg PO DAILY PRN GERD 12/14/23 12/18/23 release Results & Data (ED) Vital Signs Vital Signs - 24 hr 01/28/24 01:19 01/28/24 01:40 Temperature 36.2 C L Temperature Source Temporal Artery Scan Pulse Rate 90 85 Respiratory Rate 18 16 Respiratory Effort / Characteristics Non-Labored Spontaneous Respiratory Depth Normal Blood Pressure 169/105 H Blood Pressure Mean 126 Pulse Oximetry 96 98 Oxygen Delivery Method Room Air Room Air Sepsis Recent Fever Within 48 Hours No Sepsis New/Unexplained Change in Mental Status No Sepsis Action Taken by Nursing No Action Required Laboratory Data 01/28/24 01:34 01/28/24 01:34 Lab Results 01/28/24 01/28/24 Range/Units 01:34 01:40 WBC 12.00 H (4.8-10.8) K/ul RBC 4.97 (4.20-5.40) M/uL Hgb 15.3 (12.0-16.0) g/dl Hct 47.2 H (37.0-47.0) % MCV 95.0 (80.0-100.0) fL MCH 30.8 (25.0-34.0) pg MCHC 32.4 (32.0-36.0) g/dL RDW Std Deviation 49.1 H (36.4-46.3) fL RDW Coeff of Bryant 14.2 (11.5-14.5) % Plt Count 238 (130-400) K/uL MPV 9.8 (9.4-12.4) fL Immature Gran % (Auto) 0.3 % Neut % (Auto) 78.6 % Lymph % (Auto) 10.8 % Millard % (Auto) 6.9 % Eos % (Auto) 2.7 % Baso % (Auto) 0.7 % Neut # (Auto) 9.43 H (1.40-6.50) K/uL Lymph # (Auto) 1.30 (1.20-3.40) K/uL Millard # (Auto) 0.83 H (0.11-0.59) K/uL Eos # (Auto) 0.32 (0.00-0.50) K/uL Baso # (Auto) 0.08 (0.00-0.20) K/uL Immature Gran # (Auto) 0.04 (0.01-0.20) K/uL Sodium 138 (136-145) mmol/L Potassium 3.8 (3.5-5.1) mmol/L Chloride 109 H (98-107) mmol/L Carbon Dioxide 20 L (21-32) mmol/L Anion Gap 9 (3-11) BUN 44 H (6-23) mg/dl Creatinine 2.47 H (0.6-1.2) mg/dl Est Cr Clr Drug Dosing 31.8 ml/min Est GFR ( Amer) 23.8 ml/min Est GFR (Non-Af Amer) 20.5 ml/min BUN/Creatinine Ratio 17.8 (10-20) Glucose 117 H (70-99(Fasting)) mg/dl Calcium 11.2 H (8.6-10.3) mg/dl Total Bilirubin 0.4 (0.2-1.0) mg/dl AST 31 (13-39) U/L ALT 22 (7-52) U/L Alkaline Phosphatase 82 (34-104) U/L Total Protein 7.9 (6.0-8.3) gm/dl Albumin 4.7 (3.4-5.0) gm/dl Globulin 3.2 (2.5-4.0) gm/dl Albumin/Globulin Ratio 1.5 (0.9-2) Lipase 36 (11-82) U/L Urine Color Yellow Urine Appearance Cloudy A (Clear) Urine pH 7.0 (4.5-7.5) Ur Specific [place] 1.008 (1.000-1.030) Urine Protein 1+ H (Negative) Urine Glucose (UA) Negative (Negative) Urine Ketones Negative (Negative) Urine Blood 2+ H (Negative) Urine Nitrite Positive A (Negative) Urine Bilirubin Negative (Negative) Urine Urobilinogen Negative (Negative) Ur Leukocyte Esterase 3+ H (Negative) Urine WBC (Auto) >50 H (0-5) /hpf Urine RBC (Auto) 0-2 (0-2) /hpf U Hyaline Cast (Auto) 0-2 (0-2) /lpf U Epithel Cells (Auto) 0-2 (0-2) /hpf Urine Bacteria (Auto) 4+ H (None Seen) Administered Medications Lactated Ringer's (Lr) 1,000 mls @ 125 mls/hr IV .Q8H CASIE Stop: 01/28/24 19:29 Last Admin: 01/28/24 04:48 Dose: 125 mls/hr Documented By: [facility] Discontinued Medications Sodium Chloride (Nss) 1,000 mls @ 999 mls/hr IV .Q1H1M ONE Stop: 01/28/24 02:38 Last Infusion: 01/28/24 03:31 Dose: Infused Documented By: [facility] Admin: 01/28/24 01:58 Dose: 999 mls/hr Documented By: [facility] Acetaminophen (Ofirmev) 1,000 mg in 100 mls @ 400 mls/hr IV NOW STA Stop: 01/28/24 01:58 Last Infusion: 01/28/24 02:27 Dose: Infused Documented By: [facility] Admin: 01/28/24 01:58 Dose: 400 mls/hr Documented By: [facility] Ceftriaxone Sodium (Rocephin) 2,000 mg in 50 mls @ 100 mls/hr IV NOW STA Stop: 01/28/24 02:53 Last Infusion: 01/28/24 03:30 Dose: Infused Documented By: [facility] Admin: 01/28/24 02:49 Dose: 100 mls/hr Documented By: AN Ketorolac Tromethamine (Ketorolac 30 Mg/Ml Vial) 30 mg IV NOW STA Stop: 01/28/24 01:39 Last Admin: 01/28/24 01:58 Dose: Not Given Documented By: [facility] Morphine Sulfate (Morphine Sulfate 4 Mg/Ml 1 Ml Carp\\Vial) 4 mg IV NOW STA Stop: 01/28/24 02:25 Last Admin: 01/28/24 02:49 Dose: 4 mg Documented By: AN Ondansetron HCl (Ondansetron Inj 2 Mg/Ml 2 Ml Vial) 4 mg IV NOW STA Stop: 01/28/24 01:39 Last Admin: 01/28/24 01:57 Dose: 4 mg Documented By: [facility] Tamsulosin HCl (Tamsulosin Hcl 0.4 Mg Cap) 0.4 mg PO NOW ONE Stop: 01/28/24 03:29 Last Admin: 01/28/24 04:48 Dose: 0.4 mg Documented By: [facility] Imaging Data Radiologist's Impression: Abdomen/Pelvis CT 01/28/24 01:38 Exam(s): CT ABDOMEN + PELVIS Without Contrast EXAM: CT Abdomen and Pelvis Without Intravenous Contrast CLINICAL HISTORY: Reason for exam: right flank pain. TECHNIQUE: Axial computed tomography images of the abdomen and pelvis without intravenous contrast. Automated exposure control was utilized for the study. A dose lowering technique was utilized adhering to the principles of ALARA. COMPARISON: No relevant prior studies available. FINDINGS: Lung bases: Unremarkable. No mass. No consolidation. ABDOMEN: Liver: Unremarkable. Gallbladder and bile ducts: Unremarkable. No calcified stones. No ductal dilation. Pancreas: Unremarkable. No ductal dilation. Spleen: Unremarkable. No splenomegaly. Adrenals: Unremarkable. No mass. Kidneys and ureters: Obstructing RIGHT mid ureter stone, which measures 2.0 x 0.6 cm. Extensive bilateral medullary nephrocalcinosis. Stomach and bowel: Diverticulosis, without acute diverticulitis. No small bowel obstruction. No free intraperitoneal air. PELVIS: Appendix: No findings to suggest acute appendicitis. Bladder: Unremarkable. No stones. Reproductive: Unremarkable as visualized. ABDOMEN and PELVIS: Intraperitoneal space: Unremarkable. No free air. No significant fluid collection. Bones/joints: No acute fracture. No dislocation. Soft tissues: Unremarkable. Vasculature: Unremarkable. No abdominal aortic aneurysm. Lymph nodes: Unremarkable. No enlarged lymph nodes. IMPRESSION: 1. Obstructing RIGHT mid ureter stone, which measures 2.0 x 0.6 cm. 2. Extensive bilateral medullary nephrocalcinosis. 3. Diverticulosis, without acute diverticulitis. No small bowel obstruction. No free intraperitoneal air. Electronically signed by: Derik Langford MD 01/28/24 03:39 AM Discharge Plan Visit Data Chief Complaint: Kidney Stone Stated Complaint: KIDNEY STONE POSSIBLE OBSTRUCTION ED Provider: Britt Carrasco ED Midlevel Provider: Diana Lindsey Discharge Problem: Right ureteral calculus, Hydronephrosis, right
[2024-01-28] MEDS: MoRPHine SULFATE 4 MG/ML 1 ML CARP\\VIAL IV STA (02:49)
[2024-01-28] MEDS: cefTRIAXone SODIUM 2,000 MG/50 ML BAG IV STA (02:49)
[2024-01-28] MEDS ORDERED: ONDANSETRON INJ 2 MG/ML 2 ML VIAL IV PRN (03:28)
[2024-01-28] MEDS ORDERED: HYDROmorphone INJ 0.5 MG/0.5 ML SYR IV PRN (03:28)
[2024-01-28] MEDS ORDERED: ACETAMINOPHEN 500 MG TAB PO PRN (03:28)
[2024-01-28] MEDS ORDERED: POLYETHYLENE (MIRALAX) 17 GM PACK PO PRN (03:28)
--- NOTE | 2024-01-28 03:38 | Communication Note ---
Date of Service: January 28, 2024 Kailyn is a 58-year-old woman with a past medical history of medullary sponge kidney, w/ recurrent nephrolithiasis, frequent UTIs, CKD4, who presented to the ER with a complaint of a kidney stone. Patient has had multiple kidney stones, most recently less than 2 months ago (11/28/23) for a left-sided stone she had 9 stones ultimately removed at that time. Today, she specifically describes an acute, sharp, right-sided flank pain. Pain started abruptly last evening at approximately 10:30 PM, and she knew she was passing a stone she is certain it is at least midway down her ureter the pain began to worsen, with a burning sensation at the right flank, prompting her presentation to the ER for evaluation. She had taken the tramadol prior to arrival, though that offered minimal improvement. ROS + nausea, dry heaving. She denies fever, chills, vomiting, dysuria, urinary frequency, or hematuria. In the ED,
--- NOTE | 2024-01-28 03:39 | CT Scan Report ---
Exam(s): CT ABDOMEN + PELVIS Without Contrast EXAM: CT Abdomen and Pelvis Without Intravenous Contrast CLINICAL HISTORY: Reason for exam: right flank pain. TECHNIQUE: Axial computed tomography images of the abdomen and pelvis without intravenous contrast. Automated exposure control was utilized for the study. A dose lowering technique was utilized adhering to the principles of ALARA. COMPARISON: No relevant prior studies available. FINDINGS: Lung bases: Unremarkable. No mass. No consolidation. ABDOMEN: Liver: Unremarkable. Gallbladder and bile ducts: Unremarkable. No calcified stones. No ductal dilation. Pancreas: Unremarkable. No ductal dilation. Spleen: Unremarkable. No splenomegaly. Adrenals: Unremarkable. No mass. Kidneys and ureters: Obstructing RIGHT mid ureter stone, which measures 2.0 x 0.6 cm. Extensive bilateral medullary nephrocalcinosis. Stomach and bowel: Diverticulosis, without acute diverticulitis. No small bowel obstruction. No free intraperitoneal air. PELVIS: Appendix: No findings to suggest acute appendicitis. Bladder: Unremarkable. No stones. Reproductive: Unremarkable as visualized. ABDOMEN and PELVIS: Intraperitoneal space: Unremarkable. No free air. No significant fluid collection. Bones/joints: No acute fracture. No dislocation. Soft tissues: Unremarkable. Vasculature: Unremarkable. No abdominal aortic aneurysm. Lymph nodes: Unremarkable. No enlarged lymph nodes. IMPRESSION: 1. Obstructing RIGHT mid ureter stone, which measures 2.0 x 0.6 cm. 2. Extensive bilateral medullary nephrocalcinosis. 3. Diverticulosis, without acute diverticulitis. No small bowel obstruction. No free intraperitoneal air. Electronically signed by: Derik Langford MD 01/28/24 03:39 AM
--- NOTE | 2024-01-28 04:00 | History & Physical Report ---
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 Now stable, admitted for acute management of right nephrolithiasis. Right Ureteral Calculus/Recurrent Nephrolithiasis -Hx of recurrent stones. Hx of urosepsis 2/2 complicated UTI/pyelonephritis, also 2/2 obstructing right-sided kidney stone (06/01/2023). -Follows with [facility] Urology sees Dr. Cortez. Most recently s/p admission 12/17 for L. nephrolithiasis, ureterocystoscopy. -Initial symptoms: Sudden, sharp, burning, nonradiating, "14/" R flank pain. Refractory at home to p.o. tramadol. + nausea. Afebrile. No signs of sepsis. -WBC-12, see r-2.47, Ca-11.2, positive UA (1+ protein, 2+ blood, nitrite +, 3+ leuk est, 4+ bacteria). -"Obstructing right mid ureter stone, which measures 2.0 x 0.6 cmExtensive bilateral medullary nephrocalcinosis" on CT A/P. -S/p IV morphine, Zofran, Tylenol, ceftriaxone, and 1 L NS bolus in ER. * Admit to med telemetry made n.p.o. * Urology consult placed appreciate eval * IV ceftriaxone 2 g every 24 hours starting 01/28 (received 2 g dose in the ER) * As-needed analgesia: IV Tylenol 1000 mg every 8 hours, IV Dilaudid 0.25/0.5 mg * Tamsulosin 0.4 mg x 1 dose ordered stat continue 0.4 mg daily * Maintenance IVF: LR@125 mL/h x 2 bags * IV Zofran 4 g every 4 hours as needed * Home meds held UTI -Based on positive UA, presenting symptoms likely 2/2 1 presenting problem. Concern for pyelonephritis given location of kidney stone. -S/p IV ceftriaxone 2 g prior to admission. * IV antibiotics, maintenance IVF as above * Urine culture, sensitivities pending narrow antibiotic coverage as indicated CKD/CRF Stage IIIB -GFR on admission 20.5. Creatinine at/near baseline no evidence of WENDY * Trend on daily labs Code: Full code Dispo: Med-Surg telemetry FEN/GI: NPO. LR @maintenance rate. DVT Prophylaxis: Hold pending eval for probable urologic procedure PT/OT: No Consults: Urology Case Management: No (2) Recurrent nephrolithiasis: (3) UTI (urinary tract infection): (4) Chronic renal failure, stage 3b: History of Present Illness Primary Care Provider: Arvin Weller MD Kailyn is a 58-year-old woman with a past medical history of recurrent nephrolithiasis and UTIs 2/2 medullary sponge kidney she is known to [facility] Urology and CKD4, who presented to the ER with a complaint of a "kidney stone." Patient has passed multiple kidney stones, most recently less than 2 months ago (11/28/23) when she was admitted for a left-sided stone she ultimately had 9 stones removed. Today, she specifically describes an acute, "14/10," right-sided flank pain that started abruptly last evening at approximately 10:30 PM. She not only knew she was passing a stone, she is certain the stone is at least midway down her ureter when the pain worsened, and grew to include a burning sensation at her right flank, she presented to the ER for evaluation. She had taken some tramadol prior to arrival with minimal improvement. ROS + nausea, dry heaving. She denies fever, chills, vomiting, dysuria, urinary frequency, or hematuria. In the ED, vitals were notable for BP 169/105 rest of vital signs were stable. Notable labs include WBC-12, BUN-44, Cr-2.47 (around her b/l), and a UA revealing proteinuria (1+), hematuria (2+), leuk esterase (3+), and bacteriuria (4+). Report for CT A/P is pending at the time of this note though there appears to be an at least 8 mm stone at the mid to lower ureter on the right side per this resident's decidedly amateur read. She received a 1 L NS bolus, IV morphine 4 mg, IV Zofran 4 mg, and IV ceftriaxone 2 g. Hospitalist service was then consulted for admission. On admission, her pain is much improved ("now about 4/10"). She now denies nausea or dry heaving. Allergies Allergy/AdvReac Type Severity Reaction Status Date / Time Iodinated Contrast Media Allergy Severe Difficulty Verified 12/18/23 07:21 Breathing lactose Allergy Severe (dairy) Verified 12/18/23 07:21 Difficulty Breathing milk Allergy Severe Difficulty Verified 12/18/23 07:21 Breathing penicillin G Allergy Severe breathing Verified 12/18/23 07:21 difficulty Sulfa (Sulfonamide Allergy Severe Difficulty Verified 12/18/23 07:21 Antibiotics) Breathing adhesive tape Allergy Mild itching Verified 12/18/23 07:21 latex Allergy Mild Rash Verified 12/18/23 07:21 soy Allergy Unknown Unknown Verified 12/18/23 07:21 midazolam [From Versed] AdvReac Intermediate "i just Verified 12/18/23 07:21 get a lot of vomiting" Home Medications Medication Instructions Recorded Confirmed Type cholecalciferol (vitamin D3) 25 25 mcg PO QAM 01/19/22 12/18/23 History mcg (1,000 unit) capsule magnesium citrate 100 mg tablet 100 mg PO UD 01/19/22 12/18/23 History zinc 50 mg tablet 50 mg PO QAM 01/19/22 12/18/23 History potassium citrate 99 mg capsule 99 mg PO UD 05/01/22 12/18/23 History calcium citrate 250 mg PO UD 08/30/22 12/18/23 History pantoprazole 40 mg tablet,delayed 40 mg PO DAILY PRN GERD 12/14/23 12/18/23 History release Past Med/Surg History Problem List UTI (urinary tract infection) Chronic renal failure (CRF), stage 3b Penicillin allergy Gallstones Recurrent nephrolithiasis Pyelonephritis due to Escherichia coli S/P ureteral stent placement Acute right flank pain (Acute) entered into EMR 05/29/23 Complicated urinary tract infection (Acute) 12/11/23 Hydronephrosis, right (Acute) Right ureteral calculus (Acute) WENDY (acute kidney injury) entered into EMR 03/21/23 and last activated 05/30/23 Sepsis (Acute) 12/11/23 Left ureteral stone (Acute) Encounter for pre-operative examination Left flank pain (Acute) Medical History UTI (urinary tract infection) admitted to [facility] w/UTI/sepsis 12/11/23, IV abx in hospital, sent home with oral abx. Chronic renal failure, stage 3b f/u dr. cortez, [place] History of recent hospitalization 05/2023 [facility] - secondary to an obstructing right ureteral calculus with resistant E. coli urosepsis 12/11/23 [facility]>sepsis, d/c 12/13/23 Ureteral stent present left side History of COVID-19 diagnosed 2019--mild symptoms, no symptoms now Benign positional vertigo IBS (irritable bowel syndrome) Atelectasis per pt was a hx, had had to use an incentive spirometry--no issues currently (states she rides her bike 30 miles without any breathing issues) History of anesthesia reaction 04/2019 "intubation induced apnea" @ [facility] in [place] was told this during cystoscopy--per pt has had 2 cystoscopy procedures since then with no issues at all Nephrolithiasis duplicate Medullary sponge kidney History of nephrolithiasis Surgical History H/O lithotripsy multiple. cysto, litho 01/09/23: [place] LMA#4 without issue History of bilateral tubal ligation History of cystoscopy multiple--started in 2013 "more than a dozen". cysto, L stent 12/11/23, [facility] History of dilatation and curettage History of strabismus surgery left Family History Family/Other Kidney stones Cancer Hypertension Mother Family history of reaction to anesthesia 1973 radical mastectomy--had difficulty time waking her Sister Family history of reaction to anesthesia difficulty waking/nausea Social History Smoking Status: Never smoker Second Hand Exposure: Yes (hx as child); Do You Dip or Chew Tobacco: No; Hx Alcohol Use: No Hx Substance Use: No Preferred Language: Wolof Communication Ability: Effective Button Sawyer Required: No Beliefs That Will Affect Care: None Current Living Situation: Spouse Current Living Situation Comment: Lives with and 25yr old son Feels Safe at Home: Yes Assistive Devices: None Review of Systems Review of Systems: All systems reviewed & are unremarkable except as noted in HPI & below Physical Exam Physical Exam: General: in mild distress, speaking in full sentences Resp: good inspiratory effort, no labored breathing HEENT: conjunctivae appear clear, no audible congestion, no swelling noted face or lips Skin: skin appears dry, normal coloration, no rash visible on exposed skin areas Neuro: alert and oriented x3, no focal deficits appreciated Psych: euthymic affect, pleasant and interactive, logical thought process Results & Data Results & Data Vital Signs (Past 12 Hours) Vital Signs Temp Pulse Resp BP Pulse Ox O2 Del Method 01/28/24 01:40 85 16 98 Room Air 01/28/24 01:19 36.2 C L 90 18 169/105 H 96 Room Air Supervising Physician Co-Signing Physician Notes Patient seen and examined, chart reviewed, case discussed with Dr. Hilton and I agree with the assessment and plan as above Resident Activity Tracking Resident Involvement: Resident Care Provided Care Provided: Adult Hospital Medicine (3) UTI (urinary tract infection) Hematuria presence: without hematuria Urinary tract infection type: site unspecified Qualified Code(s): N39.0 - Urinary tract infection, site not specified
[2024-01-28] MEDS: LACTATED RINGER'S 1,000 ML IV SCH (04:48)
[2024-01-28] MEDS: TAMSULOSIN HCL 0.4 MG CAP PO ONE (04:48)
[2024-01-28] MEDS ORDERED: MELATONIN 3 MG TAB PO PRN (05:34)
--- NOTE | 2024-01-28 05:55 | Billing Data ---
Date of Service January 28, 2024 Coding Level of Care Code 98065 INT INP/OBS CARE
[2024-01-28] MEDS: HYDROmorphone INJ 0.5 MG/0.5 ML SYR IV PRN (07:24)
--- NOTE | 2024-01-28 09:18 | Urology Consultation ---
Date of Consultation January 28, 2024 Assessment & Plan (1) Right ureteral calculus: (2) Hydronephrosis, right: (3) UTI (urinary tract infection): (4) Acute right flank pain: Plan 58yo/F admitted with an obstructing right ureteral stone and concern for infection. Afebrile, hypertensive otherwise stable vitals at present. Labs today show mild leukocytosis of 12 and creatinine 2.47 which is near her baseline. Urine culture pending. Receiving IV Rocephin. We discussed acute stone management with cystoscopy and stent placement. Ureteral stents were discussed as well as post-operative issues and pain management. Discussed need for additional procedures for stone treatment after infection has been treated appropriately We also discussed the possibility of need for nephrostomy tube placement if attempt at ureteral stent placement is unsuccessful. Risks and benefits were reviewed. All questions were answered. She is agreeable to proceeding. Will plan to proceed to the OR today for cystoscopy, right retrograde pyelogram, right ureteral stent placement. Risks and benefits to be reviewed with patient by Dr. Coleman. OR notified. She is covered with scheduled IV Rocephin. Keep NPO. Continue supportive care and pain management as needed. Urology will follow. Please call with any questions, concerns, or changes in patient status. Supervising Physician Co-Signing Physician Notes Discussed patient with KAROL. Agree with plan. History of Present Illness Attending Physician: Jazlyn Cardona DO History of Present Illness This is a 58-year-old female with past medical history of nephrocalcinosis/medullary sponge kidney who presented to the emergency dep artment on 01/28/24 with severe right flank pain. On arrival, she was afebrile, hypertensive but otherwise stable vitals. Labs showing a mild leukocytosis of 12 and creatinine near baseline at 2.47. Urinalysis 2+blood, +nitrite, 3+Leukocytes, 4+bacteria. Urine culture collected and pending. She was given IV Rocephin in the ED. CT abd pelvis demonstrated an obstructing 2cm mid right ureteral stone with extensive bilateral medullary nephrocalcinosis. Patient admitted to medicine service. CT abdomen pelvis- 1. Obstructing RIGHT mid ureter stone, which measures 2.0 x 0.6 cm. 2. Extensive bilateral medullary nephrocalcinosis. 3. Diverticulosis, without acute diverticulitis. No small bowel obstruction. No free intraperitoneal air. Patient is well known to the urology service, follows with Dr. Cortez. Most recently (12/18/23) she is s/p Left ureterocystoscopy and stone treatment. Patient seen at bedside in the ED. Awake, resting in bed on arrival. No acute distress. Has been NPO. Still with right sided pain, rates 4/10. Denies fever. Reports some chills and nausea. No vomiting. Voiding without issue. Allergies Allergy/AdvReac Type Severity Reaction Status Date / Time Iodinated Contrast Media Allergy Severe Difficulty Verified 12/18/23 07:21 Breathing lactose Allergy Severe (dairy) Verified 12/18/23 07:21 Difficulty Breathing milk Allergy Severe Difficulty Verified 12/18/23 07:21 Breathing penicillin G Allergy Severe breathing Verified 12/18/23 07:21 difficulty Sulfa (Sulfonamide Allergy Severe Difficulty Verified 12/18/23 07:21 Antibiotics) Breathing adhesive tape Allergy Mild itching Verified 12/18/23 07:21 latex Allergy Mild Rash Verified 12/18/23 07:21 soy Allergy Unknown Unknown Verified 12/18/23 07:21 midazolam [From Versed] AdvReac Intermediate "i just Verified 12/18/23 07:21 get a lot of vomiting" Home Medications Medication Instructions Recorded Confirmed Type cholecalciferol (vitamin D3) 25 25 mcg PO QAM 01/19/22 01/28/24 History mcg (1,000 unit) capsule magnesium citrate 100 mg tablet 100 mg PO UD 01/19/22 01/28/24 History zinc 50 mg tablet 50 mg PO QAM 01/19/22 01/28/24 History potassium citrate 99 mg capsule 99 mg PO UD 05/01/22 01/28/24 History calcium citrate 250 mg PO UD 08/30/22 01/28/24 History pantoprazole 40 mg tablet,delayed 40 mg PO DAILY PRN GERD 12/14/23 01/28/24 History release Patient History Medical History UTI (urinary tract infection) admitted to [facility] w/UTI/sepsis 12/11/23, IV abx in hospital, sent home with oral abx. Chronic renal failure, stage 3b f/u dr. cortez, [place] History of recent hospitalization 05/2023 [facility] - secondary to an obstructing right ureteral calculus with resistant E. coli urosepsis 12/11/23 [facility]>sepsis, d/c 12/13/23 Ureteral stent present left side History of COVID-19 diagnosed 2019--mild symptoms, no symptoms now Benign positional vertigo IBS (irritable bowel syndrome) Atelectasis per pt was a hx, had had to use an incentive spirometry--no issues currently (states she rides her bike 30 miles without any breathing issues) History of anesthesia reaction 04/2019 "intubation induced apnea" @ [facility] in [place] was told this during cystoscopy--per pt has had 2 cystoscopy procedures since then with no issues at all Nephrolithiasis duplicate Medullary sponge kidney History of nephrolithiasis Surgical History H/O lithotripsy multiple. cysto, litho 01/09/23: [place] LMA#4 without issue History of bilateral tubal ligation History of cystoscopy multiple--started in 2013 "more than a dozen". cysto, L stent 12/11/23, [facility] History of dilatation and curettage History of strabismus surgery left Family History Family/Other Kidney stones Cancer Hypertension Mother Family history of reaction to anesthesia 1973 radical mastectomy--had difficulty time waking her Sister Family history of reaction to anesthesia difficulty waking/nausea Social History Smoking Status: Never smoker Second Hand Exposure: Yes (hx as child); Do You Dip or Chew Tobacco: No; Hx Alcohol Use: No Hx Substance Use: No Preferred Language: Amharic Communication Ability: Effective Mosquito Sprayer Required: No Beliefs That Will Affect Care: None Current Living Situation: Spouse Current Living Situation Comment: Lives with and 25yr old son Feels Safe at Home: Yes Safety Concerns: Feels Safe At This Time Assistive Devices: Glasses Review of Systems 2 Review of Systems: All systems reviewed & are unremarkable except as noted in HPI & below Physical Exam Constitutional: Resting in bed. NAD. Neck: normal visual inspection Respiratory: no respiratory distress and no labored breathing Musculoskeletal: Head/Neck/Chest: normocephalic Skin: No visible rashes or lesions to exposed skin areas Neurologic: awake Psychiatric: Orientation: alert, oriented x 3 and cooperative Results & Data Vital Signs (Past 12 Hours) Vital Signs Temp Pulse Pulse Resp BP BP Pulse Ox 01/28/24 06:54 36.4 C L 68 18 98 01/28/24 06:17 82 16 149/82 H 99 01/28/24 05:53 01/28/24 04:49 72 16 157/90 H 98 01/28/24 01:40 85 16 98 01/28/24 01:19 36.2 C L 90 18 169/105 H 96 Pulse Ox O2 Del Method O2 Del Method 01/28/24 06:54 Room Air 01/28/24 06:17 Room Air 01/28/24 05:53 99 Room Air 01/28/24 04:49 Room Air 01/28/24 01:40 Room Air 01/28/24 01:19 Room Air PG Care Time/CCT Total # of Minutes Spent Total Time Spent with Patient: Total time spent is greater than 50% in coordination of care (as documented) at patient's floor/unit and/or counseling patient: Coding Level of Care Code 28137 IN/OBS CONSULT LVL 4,60M Diagnoses Right ureteral calculus N20.1 Hydronephrosis, right N13.30 Urinary tract infection without hematuria, site unspecified N39.0 Hematuria presence: without hematuria Urinary tract infection type: site unspecified Acute right flank pain R10.9 (3) UTI (urinary tract infection) Hematuria presence: without hematuria Urinary tract infection type: site unspecified Qualified Code(s): N39.0 - Urinary tract infection, site not specified
--- NOTE | 2024-01-28 11:21 | Hospitalist Progress Note ---
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 Now stable, admitted for acute management of right nephrolithiasis. Right Ureteral Calculus/Recurrent Nephrolithiasis -Hx of recurrent stones. Hx of urosepsis 2/2 complicated UTI/pyelonephritis, also 2/2 obstructing right-sided kidney stone (06/01/2023). -Follows with [facility] Urology sees Dr. Geronimo. Most recently s/p admission 12/17 for L. nephrolithiasis, ureterocystoscopy. -Initial symptoms: Sudden, sharp, burning, nonradiating, "14/10" R flank pain. Refractory at home to p.o. tramadol. + nausea. Afebrile. No signs of sepsis. -WBC-12, see r-2.47, Ca-11.2, positive UA (1+ protein, 2+ blood, nitrite +, 3+ leuk est, 4+ bacteria). -"Obstructing right mid ureter stone, which measures 2.0 x 0.6 cmExtensive bilateral medullary nephrocalcinosis" on CT A/P. -S/p IV morphine, Zofran, Tylenol, ceftriaxone, and 1 L NS bolus in ER. * Urology consult placed plan for stent placement 01/27 * IV ceftriaxone 2 g every 24 hours * As-needed analgesia: IV Tylenol 1000 mg every 8 hours, IV Dilaudid 0.25/0.5 mg * Maintenance IVF: LR@125 mL/h x 2 bags * IV Zofran 4 g every 4 hours as needed * Home meds held UTI -Based on positive UA, presenting symptoms likely 2/2 1 presenting problem. Concern for pyelonephritis given location of kidney stone. -S/p IV ceftriaxone 2 g prior to admission. * IV antibiotics, maintenance IVF as above * Urine culture, sensitivities pending narrow antibiotic coverage as indicated WENDY in the setting of CKD/CRF Stage IIIB - likely obstructive nephropathy in the setting of stone, plan to stent as per above - continue to trend Code: Full code FEN/GI: NPO. LR @maintenance rate. DVT Prophylaxis: Hold pending eval for probable urologic procedure PT/OT: No Consults: Urology Case Management: No (2) Recurrent nephrolithiasis: (3) UTI (urinary tract infection): (4) Chronic renal failure, stage 3b: Admission and Anticipated Discharge Date Admission Date: January 28, 2024 Supervising Physician Co-Signing Physician Notes I personally examined the patient and verified duran points of history and exam, discussed case, and agree with decision making and plan documented by Dr. Hart. Patient with a longstanding history of recurrent nephrolithiasis and at present obstructing right mid ureter stone (2 x 0.6 cm). Patient evaluated at bedside prior to urologic intervention, she reported pain control, lungs clear b/l to auscultation, regular rate and rhythm, no acute distress. Patient had cystoscopy, right retrograde pyelogram, and stent placement today. Subjective Pt seen at bedside this morning. Notes improved pain 4/10, still having nausea. Review of Systems Review of Systems: As per above Physical Exam Physical Exam: Constitutional: well-appearing, no acute distress HEENT: NCAT, no conjunctival injection CV: regular rhythm, no murmur appreciated, extremities well-perfused, LE edema Resp: CTABL, no wheezes/rales/rhonchi appreciated, no increased work of breathing GI: soft, nondistended, nontender, +right CVA tenderness MSK: no gross deformities appreciated Skin: warm, dry, no rash appreciated Neuro: alert, oriented, no focal neurologic deficit appreciated Results & Data Results & Data Vital Signs (Past 12 Hours) Vital Signs Temp Pulse Pulse Resp BP BP Pulse Ox 01/28/24 10:53 99 H 20 112/85 95 01/28/24 09:48 113 H 01/28/24 06:54 36.4 C L 68 18 98 01/28/24 06:17 82 16 149/82 H 99 01/28/24 05:53 01/28/24 04:49 72 16 157/90 H 98 01/28/24 01:40 85 16 98 01/28/24 01:19 36.2 C L 90 18 169/105 H 96 Pulse Ox O2 Del Method O2 Del Method O2 Flow Rate 01/28/24 10:53 Nasal Cannula 2 01/28/24 09:48 01/28/24 06:54 Room Air 01/28/24 06:17 Room Air 01/28/24 05:53 99 Room Air 01/28/24 04:49 Room Air 01/28/24 01:40 Room Air 01/28/24 01:19 Room Air Resident Activity Tracking Resident Involvement: Resident Care Provided Care Provided: Adult Hospital Medicine (3) UTI (urinary tract infection) Hematuria presence: without hematuria Urinary tract infection type: site unspecified Qualified Code(s): N39.0 - Urinary tract infection, site not specified
[2024-01-28] MEDS ORDERED: fentaNYL citrate PF 100 MCG/2 ML VIAL ONE (17:43)
[2024-01-28] MEDS ORDERED: LIDOCAINE 2% 2 ML VIAL/AMP(20MG/ML) INFIL ONE (17:44)
[2024-01-28] MEDS ORDERED: ONDANSETRON INJ 2 MG/ML 2 ML VIAL ONE (17:44)
[2024-01-28] MEDS ORDERED: PROPOFOL IV EMULSION 10 MG/ML 20 ML VIAL IV ONE (17:44)
--- NOTE | 2024-01-28 17:53 | Anesthesiology Consultation ---
Date of Service January 28, 2024 Assessment & Plan Chart Review Chart Review: Acceptable Risk for Surgery Consults Requested none History Surgery Operation Date: 01/28/24 15:05 Proposed Procedures p Cystoscopy, Right Retrograde Pyelogram, Stent Placement - Jose G Coleman MD Height/Weight Height: 5 ft 10 in Weight: 104.9 kg Allergies Allergy/AdvReac Type Severity Reaction Status Date / Time Iodinated Contrast Media Allergy Severe Difficulty Verified 12/18/23 07:21 Breathing lactose Allergy Severe (dairy) Verified 12/18/23 07:21 Difficulty Breathing milk Allergy Severe Difficulty Verified 12/18/23 07:21 Breathing penicillin G Allergy Severe breathing Verified 12/18/23 07:21 difficulty Sulfa (Sulfonamide Allergy Severe Difficulty Verified 12/18/23 07:21 Antibiotics) Breathing adhesive tape Allergy Mild itching Verified 12/18/23 07:21 latex Allergy Mild Rash Verified 12/18/23 07:21 soy Allergy Unknown Unknown Verified 12/18/23 07:21 midazolam [From Versed] AdvReac Intermediate "i just Verified 12/18/23 07:21 get a lot of vomiting" Medications Home Medications Medication Instructions Recorded Confirmed Last Taken cholecalciferol (vitamin D3) 25 25 mcg PO QAM 01/19/22 01/28/24 12/13/23 mcg (1,000 unit) capsule magnesium citrate 100 mg tablet 100 mg PO UD 01/19/22 01/28/24 12/17/23 16:30 zinc 50 mg tablet 50 mg PO QAM 01/19/22 01/28/24 12/11/23 potassium citrate 99 mg capsule 99 mg PO UD 05/01/22 01/28/24 12/17/23 16:30 calcium citrate 250 mg PO UD 08/30/22 01/28/24 12/17/23 16:30 pantoprazole 40 mg tablet,delayed 40 mg PO DAILY PRN GERD 12/14/23 01/28/24 Unknown release Active Medications Generic Name Dose Route Start Last Admin Trade Name Freq PRN Reason Stop Dose Admin Hydromorphone HCl 0.5 mg 01/28/24 03:28 01/28/24 07:24 Hydromorphone Inj 0.5 Mg/0.5 Ml Syr IV 02/11/24 03:27 0.5 mg Q3H PRN Administration Pain (6,7,8,9,10) Lactated Ringer's 1,000 mls @ 125 mls/hr 01/28/24 03:30 01/28/24 13:24 Lr IV 01/28/24 19:29 125 mls/hr .Q8H CASIE Administration NPO Date Last Intake of Fluids: 01/27/24 Time Last Intake of Fluids: 23:59 Date Last Intake of Solids: 01/27/24 Time Last Intake of Solids: 17:30 Past Medical History Medical History UTI (urinary tract infection) admitted to [facility] w/UTI/sepsis 12/11/23, IV abx in hospital, sent home with oral abx. Chronic renal failure, stage 3b f/u dr. [place] History of recent hospitalization 05/2023 [facility] - secondary to an obstructing right ureteral calculus with resistant E. coli urosepsis 12/11/23 [facility]>sepsis, d/c 12/13/23 Ureteral stent present left side History of COVID-19 diagnosed 2019--mild symptoms, no symptoms now Benign positional vertigo IBS (irritable bowel syndrome) Atelectasis per pt was a hx, had had to use an incentive spirometry--no issues currently (states she rides her bike 30 miles without any breathing issues) History of anesthesia reaction 04/2019 "intubation induced apnea" @ [facility] in [place] was told this during cystoscopy--per pt has had 2 cystoscopy procedures since then with no issues at all Nephrolithiasis duplicate Medullary sponge kidney History of nephrolithiasis Past Family History Family History Family/Other Kidney stones Cancer Hypertension Mother Family history of reaction to anesthesia 1973 radical mastectomy--had difficulty time waking her Sister Family history of reaction to anesthesia difficulty waking/nausea Past Surgical History Surgical History H/O lithotripsy multiple. cysto, litho 01/09/23: [place]: LMA#4 without issue History of bilateral tubal ligation History of cystoscopy multiple--started in 2013 "more than a dozen". cysto, L stent 12/11/23, [facility] History of dilatation and curettage History of strabismus surgery left Social History Smoking Status: Never smoker Do You Dip or Chew Tobacco: No Hx Alcohol Use: No Hx Substance Use: No substance use type: does not use Physical Exam Vital Signs Last Vital Signs Temp 37.0 C 01/28/24 17:37 Pulse 82 01/28/24 17:37 Resp 17 01/28/24 17:37 BP 146/86 H 01/28/24 17:37 Pulse Ox 94 01/28/24 17:37 O2 Del Method Room Air 01/28/24 17:37 O2 Flow Rate 2 01/28/24 14:30 Testing Laboratory Results 01/28/24 01:34 01/28/24 01:34 Urine Color Yellow 01/28/24 01:40 Urine Appearance Cloudy (Clear) A 01/28/24 01:40 Urine pH 7.0 (4.5-7.5) 01/28/24 01:40 Ur Specific [place] 1.008 (1.000-1.030) 01/28/24 01:40 Urine Protein 1+ (Negative) H 01/28/24 01:40 Urine Glucose (UA) Negative (Negative) 01/28/24 01:40 Urine Ketones Negative (Negative) 01/28/24 01:40 Urine Nitrite Positive (Negative) A 01/28/24 01:40 Ur Leukocyte Esterase 3+ (Negative) H 01/28/24 01:40 Urine WBC (Auto) >50 /hpf (0-5) H 01/28/24 01:40 Urine RBC (Auto) 0-2 /hpf (0-2) 01/28/24 01:40 U Hyaline Cast (Auto) 0-2 /lpf (0-2) 01/28/24 01:40 U Epithel Cells (Auto) 0-2 /hpf (0-2) 01/28/24 01:40 Urine Bacteria (Auto) 4+ (None Seen) H 01/28/24 01:40
[2024-01-28] MEDS: DIATRIZOATE MEGLUMINE 30% 100ML VIAL INSTIL ONE (18:20)
--- NOTE | 2024-01-28 18:22 | Operative Report ---
PG Post Operative Report Pre & Post Diagnosis Operation Date: 01/28/24 15:05 Pre-Op Diagnosis: 1. Right ureteral calculus, 2. Hydronephrosis, right. Post-Op Diagnosis: 1. Right ureteral calculus, 2. Hydronephrosis, right. I identified the patient and participated in the time-out.: Yes Procedure Operation Date: 01/28/24 15:05 Actual Procedures p Cystoscopy, Right Retrograde Pyelogram with radiographic interpretation, Right Stent Placement(Right) - Jose G Coleman MD Surgeon Jose G Coleman MD [place] None Estimated Blood Loss 0 Findings See Below Stent in appropriate position Specimens None Drains 6 American by 26 cm right ureteral stent Anesthesia Type General Complications none Indications 58-year-old female with medullary sponge kidney and a large right mid ureteral stone. Urinalysis concerning for infection. Presents for stent placement. Description of Procedure After informed consent was obtained, the patient was transported operative suite. MAC anesthesia was induced. The patient was placed in dorsolithotomy position prepped and draped in a sterile fashion. They received preoperative ceftriaxone for antibiotic prophylaxis. An appropriate surgical timeout was performed. A 22 American rigid scope was inserted per urethra into the bladder. Rodriguez cystoscopy revealed no stones or lesions. I turned my attention the right ureteral orifice and intubated this with a 5 American open-ended catheter. A right retrograde pyelogram was shot which opacified the ureter but did not opacify the kidney due to obstruction from the stone. A sensor wire was advanced into the kidney and confirmed fluoroscopically. A 6 American by 26 cm right ureteral stent was deployed with a good proximal coil in the renal pelvis and a good distal coil noted in the bladder, confirmed fluoroscopically and under direct visualization, respectively. The bladder was emptied and the scope was removed. This concluded the end of the case. All counts were correct at the end of the case. I was present, scrubbed, and actively participated for the entirety of the procedure. I attest to the content of the Intraoperative Record and any orders documented therein. Any exceptions are noted below.
--- NOTE | 2024-01-28 18:29 | Fluoroscopy Report ---
FL retrograde includes kub CLINICAL HISTORY: RT STENT COMPARISON STUDY: CT of the abdomen and pelvis performed earlier today. FLUOROSCOPY TIME: 12 seconds. Ka, r: 3.10 mGy FLUOROSCOPIC IMAGES: 2 FINDINGS: Fluoroscopy was provided during right retrograde pyelogram with right ureteral stent placem ent. Proximal aspect of the stent projects over the right renal pelvis. IMPRESSION: Fluoroscopy provided during right retrograde pyelogram and right ureteral stent placemen t. ACT 112: Negative or not required by law. Electronically signed by: Jose Borja M.D. 01/28/2024 6:26 PM
--- NOTE | 2024-01-28 19:01 | Anesthesiology Progress Note ---
Date of Service January 28, 2024 Anesthesia Post Procedure Vital Signs Vital Signs: Temp Pulse Pulse Resp BP BP BP 01/28/24 18:50 36.9 C 64 18 137/82 01/28/24 18:40 64 16 127/78 01/28/24 18:30 36.7 C 83 14 109/64 01/28/24 17:37 37.0 C 82 17 146/86 H 01/28/24 16:59 72 01/28/24 16:15 36.8 C 74 18 116/75 01/28/24 14:30 82 19 01/28/24 14:21 83 15 01/28/24 14:18 78 16 01/28/24 14:00 80 100/70 01/28/24 13:54 83 15 01/28/24 13:42 82 20 01/28/24 13:33 86 22 01/28/24 13:21 81 23 01/28/24 13:17 86 20 110/74 01/28/24 12:20 90 21 01/28/24 12:11 88 12 01/28/24 12:02 88 20 01/28/24 11:56 93 H 19 01/28/24 11:47 101 H 14 01/28/24 11:32 90 17 01/28/24 11:29 96 H 16 01/28/24 11:17 90 18 01/28/24 11:05 93 H 23 01/28/24 10:53 99 H 20 112/85 01/28/24 09:48 113 H 01/28/24 06:54 36.4 C L 68 18 01/28/24 06:17 82 16 149/82 H 01/28/24 05:53 01/28/24 04:49 72 16 157/90 H 01/28/24 01:40 85 16 01/28/24 01:19 36.2 C L 90 18 169/105 H Pulse Ox Pulse Ox O2 Del Method O2 Del Method O2 Flow Rate 01/28/24 18:50 94 Room Air 01/28/24 18:40 95 Nasal Cannula 2 01/28/24 18:30 94 Nasal Cannula 3 01/28/24 17:37 94 Room Air 01/28/24 16:59 01/28/24 16:15 92 Room Air 01/28/24 14:30 95 Nasal Cannula 2 01/28/24 14:21 94 Nasal Cannula 2 01/28/24 14:18 93 Nasal Cannula 2 01/28/24 14:00 94 Nasal Cannula 2 01/28/24 13:54 94 Nasal Cannula 2 01/28/24 13:42 94 Nasal Cannula 2 01/28/24 13:33 94 Nasal Cannula 2 01/28/24 13:21 94 Nasal Cannula 2 01/28/24 13:17 94 Nasal Cannula 2 01/28/24 12:20 94 Nasal Cannula 2 01/28/24 12:11 93 Nasal Cannula 2 01/28/24 12:02 94 Nasal Cannula 2 01/28/24 11:56 94 Nasal Cannula 2 01/28/24 11:47 94 Nasal Cannula 2 01/28/24 11:32 94 Nasal Cannula 2 01/28/24 11:29 94 Nasal Cannula 2 01/28/24 11:17 95 Nasal Cannula 2 01/28/24 11:05 95 Nasal Cannula 2 01/28/24 10:53 95 Nasal Cannula 2 01/28/24 09:48 01/28/24 06:54 98 Room Air 01/28/24 06:17 99 Room Air 01/28/24 05:53 99 Room Air 01/28/24 04:49 98 Room Air 01/28/24 01:40 98 Room Air 01/28/24 01:19 96 Room Air Pain Intensity Right Flank: Pain Intensity: 9 Transfer of Care Handoff Completed per policy Notes Mental Status: alert / awake / arousable and participated in evaluation Patient Amnestic to Procedure: Yes Nausea / Vomiting: adequately controlled Pain: adequately controlled Airway Patency, RR, SpO2: stable & adequate BP & HR: stable & adequate Hydration State: stable & adequate Anesthetic Complications: no major complications apparent
[2024-01-28 22:45] VITALS: RESP 18
[2024-01-29 07:13] LABS: Hematocrit (blood only) 40.3 % (37.0-47.0); Hemoglobin 13.2 g/dl (12.0-16.0); Mean Corpuscular Hemoglobin 30.8 pg (25.0-34.0); Mean Corpuscular Hgb Conc 32.8 g/dL (32.0-36.0); Mean Corpuscular Volume 93.9 fL (80.0-100.0); Mean Platelet Volume 9.7 fL (9.4-12.4); Platelet Count 189 K/uL (130-400); RDW Coefficient of Variation 14.5 % (11.5-14.5); RDW Standard Deviation 49.9 fL (36.4-46.3); Red Blood Count 4.29 M/uL (4.20-5.40)
[2024-01-29 07:26] LABS: BUN Creatinine Ratio 12.9 (10-20); Calcium 9.5 mg/dl (8.6-10.3); Creatinine Clr Calc Pharmacy 33.6 ml/min; Est GFR (African American) 25.5 ml/min; Magnesium 2.4 mg/dl (1.7-2.4); Potassium 4.1 mmol/L (3.5-5.1)
[2024-01-29] MEDS: cefTRIAXone SODIUM 2,000 MG/50 ML BAG IV SCH (09:23)
--- NOTE | 2024-01-29 09:33 | Urology Progress Note ---
Date of Service January 29, 2024 Assessment & Plan (1) UTI (urinary tract infection): (2) Right ureteral calculus: Plan -POD #1 s/p cystoscopy and right stent placement. -Feeling well overall, tolerating the ureteral stent with minimal bother. -Afebrile and hemodynamically stable. -Labs today show no leukocytosis and creatinine 2.33. -Urine culture prelim with gram-negative bacilli. -No further urological intervention warranted. -Continue antibiotics per final culture sensitivities. -Continue supportive care. -We will arrange outpatient follow-up with our service to discuss definitive stone treatment. -Urology will sign-off. Please call with any further questions or concerns. Admission and Anticipated Discharge Date Admission Date: January 28, 2024 Subjective Patient seen at bedside today. Awake, sitting up in bed on arrival. No acute distress. Feeling much better overall. Denies fever, chills, nausea, vomiting. Denies hematuria or dysuria. Tolerating the stent with minimal bother. Review of Systems Constitutional: as per Subjective / HPI Gastrointestinal: as per Subjective / HPI Genitourinary: as per Subjective / HPI Physical Exam Constitutional: no acute distress Respiratory: no respiratory distress and no labored breathing Musculoskeletal: Head/Neck/Chest: normocephalic Skin: No visible rashes or lesions to exposed skin areas Neurologic: moves all extremities and awake Psychiatric: A+Ox3, euthymic affect Results & Data Vital Signs (Past 12 Hours) Vital Signs Temp Pulse Pulse Resp BP Pulse Ox O2 Del Method 01/29/24 08:25 60 01/29/24 07:35 36.2 C L 69 18 143/86 H 96 Room Air 01/29/24 02:42 36.9 C 61 18 114/73 94 Room Air 01/28/24 23:04 63 01/28/24 22:44 36.6 C 67 18 114/73 93 Room Air PG Care Time/CCT Total # of Minutes Spent Total Time Spent with Patient: Total time spent is greater than 50% in coordination of care (as documented) at patient's floor/unit and/or counseling patient: Coding Level of Care Code 04662 SUB INP/OBS CARE 2/35MIN Diagnoses Urinary tract infection without hematuria, site unspecified N39.0 Hematuria presence: without hematuria Urinary tract infection type: site unspecified Right ureteral calculus N20.1 (1) UTI (urinary tract infection) Hematuria presence: without hematuria Urinary tract infection type: site unspecified Qualified Code(s): N39.0 - Urinary tract infection, site not specified
--- NOTE | 2024-01-29 10:06 | Discharge Summary ---
Date of Service January 29, 2024 Admission HPI Per Admitting Provider Kailyn is a 58-year-old woman with a past medical history of recurrent nephrolithiasis and UTIs 2/2 medullary sponge kidney she is known to [facility] and CKD4, who presented to the ER with a complaint of a "kidney stone." Patient has passed multiple kidney stones, most recently less than 2 months ago (11/28/23) when she was admitted for a left-sided stone she ultimately had 9 stones removed. Today, she specifically describes an acute, "14/10," right-sided flank pain that started abruptly last evening at approximately 10:30 PM. She not only knew she was passing a stone, she is certain the stone is at least midway down her ureter when the pain worsened, and grew to include a burning sensation at her right flank, she presented to the ER for evaluation. She had taken some tramadol prior to arrival with minimal improvement. ROS + nausea, dry heaving. She denies fever, chills, vomiting, dysuria, urinary frequency, or hematuria. In the ED, vitals were notable for BP 169/105 rest of vital signs were stable. Notable labs include WBC-12, BUN-44, Cr-2.47 (around her b/l), and a UA revealing proteinuria (1+), hematuria (2+), leuk esterase (3+), and bacteriuria (4+). Report for CT A/P is pending at the time of this note though there appears to be an at least 8 mm stone at the mid to lower ureter on the right side per this resident's decidedly amateur read. She received a 1 L NS bolus, IV morphine 4 mg, IV Zofran 4 mg, and IV ceftriaxone 2 g. Hospitalist service was then consulted for admission. On admission, her pain is much improved ("now about 4/10"). She now denies nausea or dry heaving. Principal Diagnosis Nephrolithiasis Discharge Exam Constitutional: well-appearing, no acute distress HEENT: NCAT, no conjunctival injection CV: regular rhythm, no murmur appreciated, extremities well-perfused, LE edema Resp: CTABL, no wheezes/rales/rhonchi appreciated, no increased work of breathing GI: soft, nondistended, nontender, +right CVA tenderness MSK: no gross deformities appreciated Skin: warm, dry, no rash appreciated Neuro: alert, oriented, no focal neurologic deficit appreciated Discharge Data Allergies Allergy/AdvReac Type Severity Reaction Status Date / Time Iodinated Contrast Media Allergy Severe Difficulty Verified 12/18/23 07:21 Breathing lactose Allergy Severe (dairy) Verified 12/18/23 07:21 Difficulty Breathing milk Allergy Severe Difficulty Verified 12/18/23 07:21 Breathing penicillin G Allergy Severe breathing Verified 12/18/23 07:21 difficulty Sulfa (Sulfonamide Allergy Severe Difficulty Verified 12/18/23 07:21 Antibiotics) Breathing adhesive tape Allergy Mild itching Verified 12/18/23 07:21 latex Allergy Mild Rash Verified 12/18/23 07:21 soy Allergy Unknown Unknown Verified 12/18/23 07:21 midazolam [From Versed] AdvReac Intermediate "i just Verified 12/18/23 07:21 get a lot of vomiting" Consultations 01/28/24 03:28 Consult Urology Routine 01/28/24 03:43 ED Decision to Admit Stat Procedures Performed Operation Date: 01/28/24 15:05 Actual Procedures p Cystoscopy, Right Retrograde Pyelogram, Right Stent Placement(Right) - Jose G Coleman MD Ordered Studies 01/28/24 01:38 CT abd pelvis wo con Stat 01/28/24 15:00 FL retrograde includes kub Routine Hospital Course (1) Right ureteral calculus: 58 F w/PMH recurrent nephrolithiasis and UTI 2/2 medullary sponge kidney s/p recent 12/17 admission for L-sided nephrolithiasis, presenting with R-sided flank pain. Now stable, admitted for acute management of right nephrolithiasis. Right Ureteral Calculus/Recurrent Nephrolithiasis -Hx of recurrent stones. Hx of urosepsis 2/2 complicated UTI/pyelonephritis, also 2/2 obstructing right-sided kidney stone (06/01/2023). -Follows with [facility] Urology sees Dr. Geronimo. Most recently s/p admission 12/17 for L. nephrolithiasis, ureterocystoscopy. -Initial symptoms: Sudden, sharp, burning, nonradiating, "14/10" R flank pain. Refractory at home to p.o. tramadol. + nausea. Afebrile. No signs of sepsis. -WBC-12, see r-2.47, Ca-11.2, positive UA (1+ protein, 2+ blood, nitrite +, 3+ leuk est, 4+ bacteria). -"Obstructing right mid ureter stone, which measures 2.0 x 0.6 cmExtensive bilateral medullary nephrocalcinosis" on CT A/P. * Urology consult placed stent placement 01/27 -> will f/u with urology UTI -Based on positive UA, presenting symptoms likely 2/2 1 presenting problem. Concern for pyelonephritis given location of kidney stone. -S/p IV ceftriaxone 2 g prior to admission. * Urine culture + for gram - bacilli- plan for cefdinir as has tolerated well in the past for a total of 10 days WENDY in the setting of CKD/CRF Stage IIIB - likely obstructive nephropathy in the setting of stone, plan to stent as per above - Creatine= 2.33 at d/c, close to baseline, repeat labs with PCP next week (2) Recurrent nephrolithiasis: (3) UTI (urinary tract infection): (4) Chronic renal failure, stage 3b: Total Time Total Time Spent Total Time Spent (In Minutes): 25 min Discharge Plan Discharge Items Patient Disposition: Home - Self-Care Reason For Visit: R FLANK PAIN Discharge Diagnosis: Kidney Stone Activity: Per Instructions section Non-emergency contact: Primary Care Provider and Urologist Call non-emergency contact if: you have any medication questions and your symptoms worsen Follow-up/Referrals: Lance Geronimo MD [Physician] - 02/01/24 12:00 pm Arvin Weller MD [Primary Care Provider] - (PLEASE CALL YOUR PRIMARY CARE PROVIDER TO SCHEDULE A HOSPITAL FOLLOW-UP DISCHARGE APPOINTMENT WITHIN 7-10 DAYS) Diet: Regular Addtl Attending Provider Instructions: You were admitted with a right sided kidney stone. Urology placed a stent. You will need to follow up with urology. We are going to send you home on antibiotics for a UTI. We will send cefdinir to the pharmacy. You should take it twice a day for a total of 8 days. You should make a follow up with PCP for repeat labs at the end of this week or the beginning of next week. Pending Studies at Discharge: Yes Stand-Alone Forms: My Eye-Q, Smoking Cessation Medications and DC Order Prescriptions: New cefdinir 300 mg capsule 300 mg PO BID 8 Days Qty: 16 0RF Continued calcium citrate 250 mg calcium tablet 250 mg PO UD Rx Instructions: otc, as directed. unable to verify HAS TO HAVE 20MIN BEFORE MEALS zinc 50 mg tablet 50 mg PO QAM Rx Instructions: otc, as directed. unable to verify cholecalciferol (vitamin D3) 25 mcg (1,000 unit) capsule 25 mcg PO QAM Rx Instructions: otc, as directed. unable to verify magnesium citrate 100 mg tablet 100 mg PO UD Rx Instructions: otc, as directed. unable to verify hAS TO HAVE 20 MIN BEFORE MEALS potassium citrate 99 mg capsule 99 mg PO UD Rx Instructions: otc, as directed. unable to verify has to have 20 min before meals. pantoprazole 40 mg tablet,delayed release (DR/EC) 40 mg PO DAILY PRN (Reason: GERD) Rx Instructions: last filled 12/13/23 14 day supply Discharge Orders: Discharge Order (Routine); Ordered 01/29/24 Ordered By: Michelle Blanca/Other Patient Handouts: Monitoring Kidney Health, Kidney Stones Expectant Tx Admission Data Admit Date/Time: 01/28/24 03:54 Attending Provider: Jazlyn Cardona Admit Provider: Augustine Hilton Primary Care Provider: Arvin Weller Other Providers: Gerardo Rowland; Evin Carlson; Lance Geronimo; Susan Her; Angelo Fernandes; Sophie Muhammad; Yaritza Johnson; Bebeto Engle; Paola Mabry; Surinder Louie; Freida Pizarro; Jose G Coleman; Maria M Garcia Other Interventions: Discharge Summary Assessment (RN) Last Done: 01/29/24 11:41 Supervising Physician Co-Signing Physician Notes I personally examined the patient and verified duran points of history and exam, discussed case, and agree with decision making and plan documented by Dr. Hart. Patient with a longstanding history of recurrent nephrolithiasis and at present obstructing right mid ureter stone (2 x 0.6 cm), s/p right stent placement yesterday, patient feeling well and denies any pain. Cefdinir prescribed on discharge to complete 10 days of therapy. Patient appears comfortable seated in chair, lungs clear b/l to auscultation, regular rate and rhythm, no LE edema, no acute distress. Vital signs stable. Patient will arrange follow-up with urology after discharge. Resident Activity Tracking Resident Involvement: Resident Care Provided Care Provided: [facility]
[2024-01-29 11:29] VITALS: PULSE 67; TEMP 97.7; O2SAT 94
[2024-01-29 11:44] VITALS: BP 110/74
== END 2024-01-29 14:25 | disposition home or self-care (01) | DRG 661 ==
LOC: ED 01:15 → SUATTDRO 03:54 → EDINP 03:54 → INTOOBSV 03:54 → 2N 05:35

== ENCOUNTER 2024-07-03 14:43 | Observation (INO) ==
--- NOTE | 2024-07-03 14:50 | ED Triage Note ---
Date of Service July 03, 2024 Provider in Triage Author: Salvador Yancey History of Present Illness This patient was briefly evaluated while in triage. An abbreviated physical exam was performed. This patient is a 59-year-old Female who presents to the ED for evaluation "I have a kidney stone" left flank pain, nausea and vomiting started acutely early this morning hx of stones, requiring stents tried tramadol without relief Physical Exam GENERAL: uncomfortable, dry heaving in triage CARDIOVASCULAR: RRR RESPIRATORY: CTA ABDOMEN: BS x 4. Left flank pain. Initial orders for labs and / or imaging were placed and patient was placed in the waiting area until a bed is available. Please see further documentation for the full ED course.
[2024-07-03] MEDS: KETOROLAC 30 MG/ML VIAL IV STA (15:20)
[2024-07-03] MEDS: SODIUM CHLORIDE 0.9% 1,000 ML IV SCH (15:29)
--- NOTE | 2024-07-03 15:34 | Emergency Department Note ---
Impression & Plan Left ureteral stone, UTI (urinary tract infection), Flank Pain ED Provider Note CHIEF COMPLAINT: Flank pain HISTORY OF PRESENT ILLNESS: This 59-year-old patient presents to the emergency department via private vehicle for evaluation of a known left-sided kidney stone. She reports she has multiple stones, and has had obstructions, which have become septic in the past. She reports the pain began at approximately 930 this morning on the left side. She reports nausea, and vomiting. She reports she is having no difficulty urinating at this time. She states the pain began in the left flank, however is radiating around to the anterior abdomen. She denies dysuria, fever, chest pain, shortness of breath. REVIEW OF SYSTEMS: A review of systems was performed with positives and pertinent negatives listed in the history of present illness. All other systems were reviewed and are negative. ALLERGIES: See below MEDICATIONS: See below PMH: See below PHYSICAL EXAM: VITALS: Vitals are noted on the nurse's note and reviewed by myself. Vital signs stable. GENERAL: [age]-year-old female, in no acute distress, nondiaphoretic, well- developed well-nourished. SKIN: The skin was without rashes, erythema, edema, or bruising. HEAD: Normocephalic atraumatic. HEART: Regular rate and rhythm without murmurs gallops or rubs. LUNGS: Clear to auscultation bilaterally without wheezes, rales or rhonchi. No retractions or accessory muscle use. ABDOMEN: Positive bowel sounds x 4. Soft, tender to palpation left lateral and anterior abdomen. Positive left CVA TTP. No rebound tenderness or guarding. MUSCULOSKELETAL: No muscle atrophy, erythema, or edema noted. Normal gait. Strength 5/5 throughout. NEURO: Patient was alert and oriented to person place and time. No focal neurological deficits. MEDICAL DECISION MAKING: The patient is a pleasant 59-year-old female who arrives to the emergency department for evaluation of the above-stated complaint. Patient is currently vomiting upon examination. Initial workup was performed in triage during a time of high acuity, and high-volume. A saline lock was established, CBC, CMP, urinalysis were obtained. CBC shows no leukocytosis, with a stable hemoglobin and hematocrit. CMP shows elevated BUN, 29, creatinine 2.22. Urinalysis positive for nitrites, leukocyte esterase, and bacteria, with 1+ blood. CT imaging of the abdomen and pelvis without contrast was obtained, which shows 1 cm left ureteropelvic junction calculus results in moderate hydronephrosis with perinephric and periureteral stranding. The patient was provided 1 L normal saline, 4 mg of IV Zofran, and 4 mg of IV morphine. 2 g of IV Rocephin were provided due to the positive urinalysis. I spoke with Dr. Engle from urology, who agreed the patient would require hospital admission with intervention. Case management contacted the [facility] hospitalist, Dr. Viera, who agreed to accept the patient under their care, with Dr. Engle consult. The patient is expected to go to the OR for intervention with Dr. Engle at some point this evening. Please refer to their documentation for further patient workup and care. DIFFERENTIAL DIAGNOSIS: Appendicitis, infections, diverticulitis, UTI, obstruction, mesenteric ischemia, aortic pathology, inflammatory bowel disease, renal colic, PUD, pancreatitis, biliary pathology, hernia, volvulus, constipation, as well as other pathologies. The chart was completed utilizing [employer] Speech voice recognition software. Grammatical errors, random word insertions, pronoun errors, and incomplete sentences are an occasional consequence of this system due to software limitations, ambient noise, and hardware issues. Any formal questions or concerns about the content, text, or information contained within the body of this dictation should be directly addressed to the physician for clarification. Past Med/Surg History Problem List (Updated 07/03/24 @ 22:37 by YOLANDA Bullock) Flank Pain (Acute) Hypertension UTI (urinary tract infection) (Acute) Nephrolithiasis Multiple drug allergies Penicillin allergy Gallstones Hydronephrosis, right (Acute) Right ureteral calculus (Acute) Left ureteral stone (Acute) Encounter for pre-operative examination Medical History Chronic renal failure, stage 3b History of COVID-19 2019- mild symptoms, resolved Benign positional vertigo IBS (irritable bowel syndrome) Medullary sponge kidney History of nephrolithiasis Surgical History Ureteral stent present "has had multiple over the years for multiple stones" History of anesthesia reaction 04/2019 "intubation induced apnea" at [facility] in [place] was told this during cystoscopy. pt has had multiple procedures since this time without issue History of dilatation and curettage History of bilateral tubal ligation History of strabismus surgery Left History of cystoscopy Multiple H/O lithotripsy Multiple; most recent: 02/05/24: [place]: LMA#4 unique Family History Family/Other Kidney stones Cancer Hypertension Mother Family history of reaction to anesthesia 1973 radical mastectomy--had difficulty time waking her Sister Family history of reaction to anesthesia difficulty waking/nausea Social History Smoking Status: Never smoker Second Hand Exposure: No; Do You Dip or Chew Tobacco: No; Hx Alcohol Use: No Hx Substance Use: No Preferred Language: Tamazight Communication Ability: Effective Product Safety Associate Required: No Beliefs That Will Affect Care: None Current Living Situation: Spouse Current Living Situation Comment: Lives with and 25yr old son Other Information That Helps Us Care for You: No Feels Safe at Home: Yes Safety Concerns: Feels Safe At This Time Assistive Devices: Glasses Allergies Allergies Allergy/AdvReac Type Severity Reaction Status Date / Time Iodinated Contrast Media Allergy Severe Difficulty Verified 07/03/24 16:48 Breathing lactose Allergy Severe (dairy) Verified 07/03/24 16:48 Difficulty Breathing milk Allergy Severe Difficulty Verified 07/03/24 16:48 Breathing Sulfa (Sulfonamide Allergy Severe Difficulty Verified 07/03/24 16:48 Antibiotics) Breathing adhesive tape Allergy Mild itching Verified 07/03/24 16:48 latex Allergy Mild contact Verified 07/03/24 16:48 dermatitis casein Allergy Unknown difficulty Verified 07/03/24 16:48 breathing soy Allergy Unknown Unknown Verified 07/03/24 16:48 midazolam [From Versed] AdvReac Intermediate "i just Verified 07/03/24 16:48 get a lot of vomiting" Home Meds Home Medications Medication Instructions Recorded Confirmed cholecalciferol (vitamin D3) 25 25 mcg PO QAM 01/19/22 07/03/24 mcg (1,000 unit) capsule magnesium citrate 100 mg tablet 100 mg PO UD 01/19/22 07/03/24 zinc 50 mg tablet 50 mg PO QAM 01/19/22 07/03/24 potassium citrate 99 mg capsule 99 mg PO UD 05/01/22 07/03/24 calcium citrate 250 mg PO UD 08/30/22 07/03/24 Previous Rx's Medication Instructions Recorded tramadol 50 mg tablet 50 mg PO Q6H PRN pain #20 tabs 05/16/24 Results & Data (ED) Vital Signs Vital Signs - 24 hr 07/03/24 14:49 07/03/24 15:51 07/03/24 16:00 Temperature 36.6 C Temperature Source Oral Pulse Rate 93 H Pulse Rate [Left Apical] 95 H Respiratory Rate 18 22 Respiratory Effort / Characteristics Spontaneous Spontaneous Labored Respiratory Depth Shallow Normal Respiratory Pattern Regular Regular Blood Pressure 171/147 H 191/120 H Blood Pressure [Right Arm] 189/106 H Blood Pressure Mean 155 143 Blood Pressure Mean [Right Arm] 133 Pulse Oximetry 96 99 Oxygen Delivery Method Room Air Room Air Sepsis Recent Fever Within 48 Hours No Sepsis New/Unexplained Change in Mental Status N/A Sepsis Action Taken by Nursing No Action Required 07/03/24 16:03 07/03/24 16:12 07/03/24 16:15 Temperature Temperature Source Pulse Rate 96 H 84 86 Pulse Rate [Left Apical] Respiratory Rate 20 23 Respiratory Effort / Characteristics Respiratory Depth Respiratory Pattern Blood Pressure Blood Pressure [Right Arm] Blood Pressure Mean Blood Pressure Mean [Right Arm] Pulse Oximetry 94 97 Oxygen Delivery Method Room Air Room Air Sepsis Recent Fever Within 48 Hours Sepsis New/Unexplained Change in Mental Status Sepsis Action Taken by Nursing 07/03/24 16:21 07/03/24 16:42 07/03/24 16:56 Temperature Temperature Source Pulse Rate 88 99 H Pulse Rate [Left Apical] Respiratory Rate 14 19 Respiratory Effort / Characteristics Respiratory Depth Respiratory Pattern Blood Pressure 188/117 H Blood Pressure [Right Arm] Blood Pressure Mean 141 Blood Pressure Mean [Right Arm] Pulse Oximetry 98 97 Oxygen Delivery Method Room Air Room Air Sepsis Recent Fever Within 48 Hours Sepsis New/Unexplained Change in Mental Status Sepsis Action Taken by Nursing 07/03/24 16:58 07/03/24 17:00 Temperature Temperature Source Pulse Rate 116 H Pulse Rate [Left Apical] Respiratory Rate 22 Respiratory Effort / Characteristics Respiratory Depth Respiratory Pattern Blood Pressure Blood Pressure [Right Arm] 188/117 H Blood Pressure Mean Blood Pressure Mean [Right Arm] 140 Pulse Oximetry Oxygen Delivery Method Sepsis Recent Fever Within 48 Hours Sepsis New/Unexplained Change in Mental Status Sepsis Action Taken by [facility] Medications Current Medication List: was personally reviewed by me Laboratory Data Attestation: I reviewed the patient's lab results. 07/03/24 15:30 07/03/24 15:30 Lab Results 07/03/24 Range/Units 15:30 WBC 10.19 (4.8-10.8) K/ul RBC 5.11 (4.20-5.40) M/uL Hgb 15.8 (12.0-16.0) g/dl Hct 47.8 H (37.0-47.0) % MCV 93.5 (80.0-100.0) fL MCH 30.9 (25.0-34.0) pg MCHC 33.1 (32.0-36.0) g/dL RDW Std Deviation 45.0 (36.4-46.3) fL RDW Coeff of Bryant 13.1 (11.5-14.5) % Plt Count 231 (130-400) K/uL MPV 9.8 (9.4-12.4) fL Immature Gran % (Auto) 0.3 % Neut % (Auto) 87.5 % Lymph % (Auto) 7.1 % Cochran % (Auto) 3.7 % Eos % (Auto) 0.8 % Baso % (Auto) 0.6 % Neut # (Auto) 8.92 H (1.40-6.50) K/uL Lymph # (Auto) 0.72 L (1.20-3.40) K/uL Cochran # (Auto) 0.38 (0.11-0.59) K/uL Eos # (Auto) 0.08 (0.00-0.50) K/uL Baso # (Auto) 0.06 (0.00-0.20) K/uL Immature Gran # (Auto) 0.03 (0.01-0.20) K/uL Sodium 143 (136-145) mmol/L Potassium 3.8 (3.5-5.1) mmol/L Chloride 112 H (98-107) mmol/L Carbon Dioxide 23 (21-32) mmol/L Anion Gap 8 (3-11) BUN 29 H (6-23) mg/dl Creatinine 2.22 H (0.6-1.2) mg/dl Est Cr Clr Drug Dosing 35.1 ml/min eGFR 24.62 BUN/Creatinine Ratio 13.1 (10-20) Glucose 113 H (70-99(Fasting)) mg/dl Calcium 10.1 (8.6-10.3) mg/dl Total Bilirubin 0.4 (0.2-1.0) mg/dl AST 25 (13-39) U/L ALT 29 (7-52) U/L Alkaline Phosphatase 128 H (34-104) U/L Total Protein 7.4 (6.0-8.3) gm/dl Albumin 4.5 (3.4-5.0) gm/dl Globulin 2.9 (2.5-4.0) gm/dl Albumin/Globulin Ratio 1.6 (0.9-2) Urine Color Yellow Urine Appearance Clear (Clear) Urine pH 7.0 (4.5-7.5) Ur Specific [place] 1.009 (1.000-1.030) Urine Protein 1+ H (Negative) Urine Glucose (UA) Negative (Negative) Urine Ketones Negative (Negative) Urine Blood 1+ H (Negative) Urine Nitrite Positive A (Negative) Urine Bilirubin Negative (Negative) Urine Urobilinogen Negative (Negative) Ur Leukocyte Esterase 3+ H (Negative) Urine WBC (Auto) >50 H (0-5) /hpf Urine RBC (Auto) 11-20 H (0-2) /hpf U Hyaline Cast (Auto) 0-2 (0-2) /lpf U Epithel Cells (Auto) 0-2 (0-2) /hpf Urine Bacteria (Auto) 4+ H (None Seen) Administered Medications Discontinued Medications Diatrizoate Meglumine (Diatrizoate Meglumine 30% 100ml Vial) 10 ml INSTIL ONCE ONE Stop: 07/03/24 18:43 Last Admin: 07/03/24 18:44 Dose: Not Given Documented By: ZEUS Sodium Chloride (Nss) 1,000 mls @ 999 mls/hr IV .Q1H1M CASIE Stop: 07/03/24 15:52 Last Infusion: 07/03/24 20:20 Dose: Infused Documented By: Admin: 07/03/24 15:29 Dose: 999 mls/hr Documented By: KMO Ceftriaxone Sodium (Rocephin) 2,000 mg in 50 mls @ 100 mls/hr IV NOW STA Stop: 07/03/24 16:25 Last Infusion: 07/03/24 20:19 Dose: Infused Documented By: Admin: 07/03/24 16:03 Dose: 100 mls/hr Documented By: LENA Sodium Chloride (Nss) 1,000 mls @ 999 mls/hr IV .Q1H1M ONE Stop: 07/03/24 16:57 Last Infusion: 07/03/24 20:19 Dose: Infused Documented By: Admin: 07/03/24 16:03 Dose: 999 mls/hr Documented By: LENA Ketorolac Tromethamine (Ketorolac 30 Mg/Ml Vial) 30 mg IV NOW STA Stop: 07/03/24 14:52 Last Admin: 07/03/24 15:20 Dose: Not Given Documented By: BAR Morphine Sulfate (Morphine Sulfate 4 Mg/Ml 1 Ml Carp\\Vial) 4 mg IV NOW STA Stop: 07/03/24 15:55 Last Admin: 07/03/24 15:58 Dose: 4 mg Documented By: LENA Ondansetron HCl (Ondansetron Inj 2 Mg/Ml 2 Ml Vial) 4 mg IV NOW STA Stop: 07/03/24 14:52 Last Admin: 07/03/24 15:36 Dose: 4 mg Documented By: Annabelle Imaging Data Attestation: I personally reviewed and interpreted this imaging study as follows: Radiologist's Impression: Abdomen/Pelvis CT 07/03/24 14:58 CT OF THE ABDOMEN AND PELVIS WITHOUT CONTRAST CLINICAL HISTORY: Left flank pain. COMPARISON STUDY: CT of the abdomen and pelvis January 28, 2024. KUB May 01, 2024. TECHNIQUE: Axial images of the abdomen and pelvis were obtained without IV contrast. Images were reviewed in the axial, sagittal, and coronal planes. Automated exposure control was utilized for the study. A dose lowering technique was utilized adhering to the principles of ALARA. FINDINGS: No pneumatosis, free air or portal venous gas is present. A 1 cm left ureteropelvic junction calculus results in moderate hydronephrosis. A 6 mm proximal right ureteral calculus is present. There is no right hydronephrosis. Bilateral renal calculi are noted with medullary nephrocalcinosis. Renal calculi measure up to 1.2 cm. Evaluation of the remainder of the abdomen and pelvis is suboptimal on this unenhanced exam. Liver, spleen, adrenal glands and pancreas are unremarkable. There is no evidence for a bowel obstruction. The appendix is normal. There is no lymphadenopathy. There are no fluid collections. Bladder is collapsed. The appendix is normal. IMPRESSION: 1. 1 cm left ureteropelvic junction calculus results in moderate hydronephrosis with perinephric and periureteral stranding. 2. Nonobstructing 6 mm proximal right ureteral calculus. 3. Medullary nephrocalcinosis with bilateral nephrolithiasis. ACT 112: Negative or not required by law. Electronically signed by: Jose Borja M.D. 07/03/2024 4:03 PM Discharge Plan Visit Data Chief Complaint: Flank Pain Stated Complaint: VOMIT, ED Provider: Lud[facility] ED Midlevel Provider: Eva Martinez Discharge Problem: Left ureteral stone, UTI (urinary tract infection), Flank Pain Patient Disposition: Admitted As Inpatient Discharge Instructions Interventions: ED Discharge Assessment Last Done: 07/03/24 17:05
[2024-07-03] MEDS: ONDANSETRON INJ 2 MG/ML 2 ML VIAL IV STA (15:36)
[2024-07-03 15:50] LABS: Basophils # (auto) 0.06 K/uL (0.00-0.20); Basophils % (auto) 0.6 %; Eosinophils # (auto) 0.08 K/uL (0.00-0.50); Eosinophils % (auto) 0.8 %; Hematocrit (blood only) 47.8 % (37.0-47.0); Hemoglobin 15.8 g/dl (12.0-16.0); Immature Granulocytes # (auto) 0.03 K/uL (0.01-0.20); Immature Granulocytes % (auto) 0.3 %; Lymphocytes # (auto) 0.72 K/uL (1.20-3.40); Lymphocytes % (auto) 7.1 %; Mean Corpuscular Hemoglobin 30.9 pg (25.0-34.0); Mean Corpuscular Hgb Conc 33.1 g/dL (32.0-36.0); Mean Corpuscular Volume 93.5 fL (80.0-100.0); Mean Platelet Volume 9.8 fL (9.4-12.4); Monocytes # (auto) 0.38 K/uL (0.11-0.59); Monocytes % (auto) 3.7 %; Neutrophils # (auto) 8.92 K/uL (1.40-6.50); Neutrophils % (auto) 87.5 %; Platelet Count 231 K/uL (130-400); RDW Coefficient of Variation 13.1 % (11.5-14.5); Red Blood Count 5.11 M/uL (4.20-5.40); White Blood Count 10.19 K/ul (4.8-10.8)
[2024-07-03 15:53] LABS: Appearance Urine Clear (Clear); Bacteria Urine Automated 4+ (None Seen); Bilirubin Urine Negative (Negative); Blood Urine 1+ (Negative); Cast Urine Automated 0-2 /lpf (0-2); Color Urine Yellow; Epithelial Cell Urine Auto 0-2 /hpf (0-2); Glucose Urine UA Negative (Negative); Ketones Urine Negative (Negative); Leukocyte Esterase Urine 3+ (Negative); Nitrite Urine Positive (Negative); Protein Urine 1+ (Negative); Specific Gravity Urine 1.009 (1.000-1.030); Urobilinogen Urine Negative (Negative); WBC Urine Automated >50 /hpf (0-5)
[2024-07-03] MEDS: MoRPHine SULFATE 4 MG/ML 1 ML CARP\\VIAL IV STA (15:58)
[2024-07-03] MEDS: cefTRIAXone SODIUM 2,000 MG/50 ML BAG IV STA (16:03)
[2024-07-03] MEDS: SODIUM CHLORIDE 0.9% 1,000 ML IV ONE (16:03)
--- NOTE | 2024-07-03 16:05 | CT Scan Report ---
CT OF THE ABDOMEN AND PELVIS WITHOUT CONTRAST CLINICAL HISTORY: Left flank pain. COMPARISON STUDY: CT of the abdomen and pelvis January 28, 2024. KUB May 01, 2024. TECHNIQUE: Axial images of the abdomen and pelvis were obtained without IV contrast. Images were revi ewed in the axial, sagittal, and coronal planes. Automated exposure control was utilized for the clarissa dy. A dose lowering technique was utilized adhering to the principles of ALARA. FINDINGS: No pneumatosis, free air or portal venous gas is present. A 1 cm left ureteropelvic junctio n calculus results in moderate hydronephrosis. A 6 mm proximal right ureteral calculus is present. Th ere is no right hydronephrosis. Bilateral renal calculi are noted with medullary nephrocalcinosis. Re nal calculi measure up to 1.2 cm. Evaluation of the remainder of the abdomen and pelvis is suboptimal on this unenhanced exam. Liver, spleen, adrenal glands and pancreas are unremarkable. There is no ev idence for a bowel obstruction. The appendix is normal. There is no lymphadenopathy. There are no flu id collections. Bladder is collapsed. The appendix is normal. IMPRESSION: 1. 1 cm left ureteropelvic junction calculus results in moderate hydronephrosis with perinephric and periureteral stranding. 2. Nonobstructing 6 mm proximal right ureteral calculus. 3. Medullary nephrocalcinosis with bilateral nephrolithiasis. ACT 112: Negative or not required by law. Electronically signed by: Jose Borja M.D. 07/03/2024 4:03 PM
--- NOTE | 2024-07-03 16:29 | History & Physical Report ---
Date of Service July 03, 2024 Assessment & Plan (1) Nephrolithiasis: (2) UTI (urinary tract infection): (3) Hypertension: Plan Patient is a 59-year-old female with past medical history of recurrent infected nephrolithiasis requiring stent placement. She is being admitted for an i nfected nephrolithiasis required IV abx. She is being evaluated by urology and planning for stent placement 07/03. #Nephrolithiasis/UTI Hx of recurrent infected nephrolithiasis CT AP showing 1 cm left ureteropelvic junction, calculus, moderate hydronephrosis, nonobstructing 6 mm proximal right ureteral calculus UA concerning for infection; 1+ protein, 1+ blood, positive for nitrates, 3+ leukocyte esterase, > 50 WBC, 4+ bacteria no leukocytosis, afebrile; no signs of systemic infection at this time history of recurrent E. coli infection, susceptible to ceftriaxone, many resistances consult urology; planning for stent placement 07/03 Follow urine cultures Continue Rocephin #HTN 192/102 on admission Suspect secondary to pain Closely monitor post op defer TX at this time VTE ppx: SCDs - low risk Diet: NPO; can advance to regular postop Dispo: med surg Admission and Anticipated Discharge Date Admission Date: 07/03/24 History of Present Illness Chief Complaint: flank pain Primary Care Provider: Arvin Weller MD Patient is a 59-year-old female with past medical history of recurrent infected nephrolithiasis requiring stent placement. She presents today with symptoms of left-sided flank pain, nausea, and many episodes of vomiting that began at 7 AM this morning. She stated that she tried to take a Toradol at 1 PM did not relieve her pain. Patient denies fever, chills, headache, dizziness, lightheadedness, dyspnea, dyspnea on exertion, chest pain, dysuria, hematuria. The pain is on the left side, flank and around the front of her abdomen. She denies right sided pain. Pain and nausea are mildly relieved with Zofran and 5 Mg of morphine. She denies history of nicotine use or alcohol use. She denies past history of hypertension, DM, or VTE ZULMA. She does states she gets hypertensive when she has a kidney stone due to pain and being dehydrated. She took her home medications this morning which she just consists of supplements. She wishes to be full code at this time. Discussed with on-call urologist, Dr. Engle - Planning for stent placement this evening as patient's last meal was 0600. she will be admitted for IV antibiotics due to infected stone. Allergies Allergy/AdvReac Type Severity Reaction Status Date / Time Iodinated Contrast Media Allergy Severe Difficulty Verified 07/03/24 16:48 Breathing lactose Allergy Severe (dairy) Verified 07/03/24 16:48 Difficulty Breathing milk Allergy Severe Difficulty Verified 07/03/24 16:48 Breathing Sulfa (Sulfonamide Allergy Severe Difficulty Verified 07/03/24 16:48 Antibiotics) Breathing adhesive tape Allergy Mild itching Verified 07/03/24 16:48 latex Allergy Mild contact Verified 07/03/24 16:48 dermatitis casein Allergy Unknown difficulty Verified 07/03/24 16:48 breathing soy Allergy Unknown Unknown Verified 07/03/24 16:48 midazolam [From Versed] AdvReac Intermediate "i just Verified 07/03/24 16:48 get a lot of vomiting" Home Medications Medication Instructions Recorded Confirmed Type cholecalciferol (vitamin D3) 25 25 mcg PO QAM 01/19/22 07/03/24 History mcg (1,000 unit) capsule magnesium citrate 100 mg tablet 100 mg PO UD 01/19/22 07/03/24 History zinc 50 mg tablet 50 mg PO QAM 01/19/22 07/03/24 History potassium citrate 99 mg capsule 99 mg PO UD 05/01/22 07/03/24 History calcium citrate 250 mg PO UD 08/30/22 07/03/24 History tramadol 50 mg tablet 50 mg PO Q6H PRN pain #20 tabs 05/16/24 07/03/24 Rx cefdinir 300 mg capsule 300 mg PO BID 5 days #10 caps 07/05/24 Rx Past Med/Surg History Problem List (Updated 07/05/24 @ 10:08 by Osmin Viera MD) Sepsis Ureteral calculi Flank Pain (Acute) Hypertension UTI (urinary tract infection) (Acute) Nephrolithiasis Multiple drug allergies Penicillin allergy Gallstones Hydronephrosis, right (Acute) Right ureteral calculus (Acute) Left ureteral stone (Acute) Encounter for pre-operative examination Medical History (Updated 07/05/24 @ 10:08 by Osmin Viera MD) Chronic renal failure, stage 3b History of COVID-19 2019- mild symptoms, resolved Benign positional vertigo IBS (irritable bowel syndrome) Medullary sponge kidney History of nephrolithiasis Surgical History Ureteral stent present "has had multiple over the years for multiple stones" History of anesthesia reaction 04/2019 "intubation induced apnea" at [facility] in [place] was told this during cystoscopy. pt has had multiple procedures since this time without issue History of dilatation and curettage History of bilateral tubal ligation History of strabismus surgery Left History of cystoscopy Multiple H/O lithotripsy Multiple; most recent: 02/05/24: [place]: LMA#4 unique Family History Family/Other Kidney stones Cancer Hypertension Mother Family history of reaction to anesthesia 1973 radical mastectomy--had difficulty time waking her Sister Family history of reaction to anesthesia difficulty waking/nausea Social History Smoking Status: Never smoker Second Hand Exposure: No; Do You Dip or Chew Tobacco: No; Hx Alcohol Use: No Hx Substance Use: No Preferred Language: Greenlandic Communication Ability: Effective Button Reclaimer Required: No Beliefs That Will Affect Care: None Current Living Situation: Spouse Current Living Situation Comment: Lives with and 25yr old son Feels Safe at Home: Yes Assistive Devices: None Review of Systems Review of Systems: see HPI Physical Exam Physical Exam: The patient is awake, alert and oriented 3, well developed and well nourished, normocephalic and atraumatic, in no acute distress. Non-toxic appearing. HEENT- EOMI, mucous membranes moist. Hearing grossly intact. Heart-normal S1 and S2. No murmurs, rubs or gallops. Lungs-clear bilaterally, no respiratory distress, no accessory muscle use. Abdomen-normal bowel sounds and soft. No ascites noted. Tender to light palpation LUQ and LLQ. Extremities- no clubbing, cyanosis, or edema. Rheumatologic-normal range of motion. Psychiatric-normal affect. Results & Data Results & Data Vital Signs (Past 12 Hours) Vital Signs Temp Pulse Pulse Resp BP BP Pulse Ox 07/03/24 16:12 84 07/03/24 15:51 95 H 22 189/106 H 99 01/09/25 14:49 36.6 C 93 H 18 171/147 H 96 O2 Del Method 07/03/24 16:12 07/03/24 15:51 Room Air 07/03/24 14:49 Room Air Laboratory Results Reviewed CBC, CMP, UA Diagnostic Findings reviewed AP CT Medications Administered ed: Rocephin 2G, 2L NSS, Toradol, Zofran, 4 Mg morphine ECG Additional Comments: ordered Code Status & VTE Plan Code Status full VTE Prophylaxis Plan VTE Prophylaxis will be ordered: Yes Supervising Physician Co-Signing Physician Notes I personally saw and examined the patient. I independently reviewed the labs, EKG, imaging, problem list, medication list, past medical history and family history. I verified all duran points and agree with Ayana Blake PA-C with the following exceptions and/or additions: 59 year old female presents to the ER with left sided flank pain. Patient with multiple similar episodes and gets sick quickly from UTIs despite symptoms only started this morning. Patient seen after stent insertion. O/E HS increased rate, regular rhythm, no murmurs, Chest CTAB, Left CVA tenderness A/P Ureterolithiasis, UTI - s/p stent insertion, IV ceftriaxone, follow up urine culture PG Care Time/CCT Total # of Minutes Spent Total Time Spent with Patient: Total time spent is greater than 50% in coordination of care (as documented) at patient's floor/unit and/or counseling patient: Coding Level of Care Code 66933 INT INP/OBS CARE 3MIN Diagnoses Nephrolithiasis N20.0 UTI (urinary tract infection) N39.0 Hypertension I10
[2024-07-03 16:39] LABS: Albumin Level 4.5 gm/dl (3.4-5.0); Bilirubin,Total 0.4 mg/dl (0.2-1.0); Calcium 10.1 mg/dl (8.6-10.3); Potassium 3.8 mmol/L (3.5-5.1)
[2024-07-03 16:45] LABS: Albumin Globulin Ratio 1.6 (0.9-2); BUN Creatinine Ratio 13.1 (10-20); Creatinine Clr Calc Pharmacy 35.1 ml/min; Globulin 2.9 gm/dl (2.5-4.0); Total Protein 7.4 gm/dl (6.0-8.3)
[2024-07-03] MEDS ORDERED: ONDANSETRON INJ 2 MG/ML 2 ML VIAL ONE (16:45)
[2024-07-03] MEDS ORDERED: DEXAMETHASONE SOD INJ 4 MG/ML VIAL ONE (16:45)
[2024-07-03] MEDS ORDERED: LIDOCAINE 2% 2 ML VIAL/AMP(20MG/ML) INFIL ONE (16:45)
[2024-07-03] MEDS ORDERED: PROPOFOL IV EMULSION 10 MG/ML 20 ML VIAL IV ONE (16:45)
--- NOTE | 2024-07-03 16:47 | Urology Consultation ---
Date of Consultation July 03, 2024 Assessment & Plan (1) UTI (urinary tract infection): (2) Medullary sponge kidney: (3) Nephrolithiasis: Plan 59-year-old female with recurrent nephrolithiasis, now with bilateral ureteral stones and concern for UTI. Given the clinical picture, I would recommend bilateral ureteral stent placement to allow maximal drainage of both kidneys as we treat any infection. We discussed risks and benefits of surgery including bleeding, infection, injury to nearby structures, need for additional procedures. She expressed understanding and would like to proceed with cystoscopy, bilateral retrograde pyelogram and bilateral ureteral stent placem ent. History of Present Illness Reason for Consultation: ureteral stones History of Present Illness This is a 59-year-old female followed by urology for medullary sponge kidney, nephrocalcinosis and recurrent nephrolithiasis. She reports that she started having left-sided flank pain on the morning of 07/03/2024. Initially this was manageable with her typical routine, however the pain increased as the day went on. She has had some chills but no overt fevers. She has had significant nausea. She denies any right-sided flank pain. She reports recently passing a couple stones as well. Workup in the ED was notable for no significant leukocytosis (WBC 10.19). At the time of dictation, creatinine is still pending. Urinalysis demonstrated positive nitrites, 3+ leukocyte esterase, 4+ bacteria. She had a CT scan of the abdomen and pelvis performed. I independently reviewed these images from 07/03/2024. Both kidneys are in normal position. There is a rim of calcification of the collecting system bilaterally. There are nonobstructing stones bilaterally, but there is also a 1 cm stone at the left UPJ and a 6 mm stone in the mid right ureter. Her bladder is grossly normal. At the bedside, she reports ongoing pain and nausea. Allergies Allergy/AdvReac Type Severity Reaction Status Date / Time Iodinated Contrast Media Allergy Severe Difficulty Verified 06/12/24 12:51 Breathing lactose Allergy Severe (dairy) Verified 06/12/24 12:51 Difficulty Breathing milk Allergy Severe Difficulty Verified 06/12/24 12:51 Breathing Sulfa (Sulfonamide Allergy Severe Difficulty Verified 06/12/24 12:51 Antibiotics) Breathing adhesive tape Allergy Mild itching Verified 06/12/24 12:51 latex Allergy Mild contact Verified 06/12/24 12:51 dermatitis casein Allergy Unknown difficulty Verified 06/12/24 12:51 breathing soy Allergy Unknown Unknown Verified 06/12/24 12:51 midazolam [From Versed] AdvReac Intermediate "i just Verified 06/12/24 12:51 get a lot of vomiting" Home Medications Medication Instructions Recorded Confirmed Type cholecalciferol (vitamin D3) 25 25 mcg PO QAM 01/19/22 06/12/24 History mcg (1,000 unit) capsule magnesium citrate 100 mg tablet 100 mg PO UD 01/19/22 06/12/24 History zinc 50 mg tablet 50 mg PO QAM 01/19/22 06/12/24 History potassium citrate 99 mg capsule 99 mg PO UD 05/01/22 06/12/24 History calcium citrate 250 mg PO UD 08/30/22 06/12/24 History ciprofloxacin HCl 500 mg tablet 500 mg PO BID #6 tabs 05/16/24 06/12/24 Rx (Cipro) tramadol 50 mg tablet 50 mg PO Q6H PRN pain #20 tabs 05/16/24 06/12/24 Rx Patient History Medical History Chronic renal failure, stage 3b History of COVID-19 Benign positional vertigo IBS (irritable bowel syndrome) Medullary sponge kidney History of nephrolithiasis Surgical History Ureteral stent present History of anesthesia reaction History of dilatation and curettage History of bilateral tubal ligation History of strabismus surgery History of cystoscopy H/O lithotripsy Family History Family/Other Kidney stones Cancer Hypertension Mother Family history of reaction to anesthesia Sister Family history of reaction to anesthesia Social History Smoking Status: Never smoker Second Hand Exposure: No; Do You Dip or Chew Tobacco: No; Hx Alcohol Use: No Hx Substance Use: No Preferred Language: Mohawk Communication Ability: Effective Signal Timer Required: No Beliefs That Will Affect Care: None Current Living Situation: Spouse Current Living Situation Comment: Lives with and 25yr old son Feels Safe at Home: Yes Assistive Devices: Glasses Review of Systems Review of Systems: 12 point review of systems negative exce pt for otherwise indicated. Physical Exam Physical Exam: Uncomfortable appearing, NAD Constitutional: well developed and well nourished; no acute distress Eyes: + anicteric sclerae; pupils not irregula r Respiratory: normal respiratory effort; no respiratory distress, does not use accessory muscles and no cough Cardiovascular: well perfused Gastrointestinal (Abdomen): Inspection/Auscultation: abdomen normal to inspection; abdomen not distended Musculoskeletal: Extremities: extremities normal to inspection Skin: normal turgor; no rashes and no lesions Neurologic: moves all extremities and awake Psychiatric: Orientation: alert and oriented x 3 Results & Data Vital Signs (Past 12 Hours) Vital Signs Temp Pulse Pulse Resp BP BP Pulse Ox 07/03/24 16:12 84 07/03/24 15:51 95 H 22 189/106 H 99 07/03/24 14:49 36.6 C 93 H 18 171/147 H 96 O2 Del Method 07/03/24 16:12 07/03/24 15:51 Room Air 07/03/24 14:49 Room Air PG Care Time/CCT Total # of Minutes Spent Total Time Spent with Patient: Total time spent is greater than 50% in coordination of care (as documented) at patient's floor/unit and/or counseling patient: Coding Level of Care Code 40696 OFFICE CONSULT LVL M Diagnoses Urinary tract infection without hematuria, site unspecified N39.0 Urinary tract infection type: site unspecified Hematuria presence: without hematuria Medullary sponge kidney Q61.5 Nephrolithiasis N20.0 (1) UTI (urinary tract infection) Urinary tract infection type: site unspecified Hematuria presence: without hematuria Qualified Code(s): N39.0 - Urinary tract infection, site not specified
[2024-07-03] MEDS ORDERED: MoRPHine SULFATE 2 MG/ML CARP IV PRN (17:04)
[2024-07-03] MEDS ORDERED: ACETAMINOPHEN 1,000 MG/100 ML VIAL IV PRN (17:04)
[2024-07-03] MEDS ORDERED: MoRPHine SULFATE 4 MG/ML 1 ML CARP\\VIAL IV PRN (17:04)
[2024-07-03] MEDS ORDERED: ONDANSETRON INJ 2 MG/ML 2 ML VIAL IV PRN ×2 (17:04→17:44)
[2024-07-03] MEDS ORDERED: PROMETHAZINE HCL 6.25 MG in SODIUM CHLORIDE 0.9% 50 ML IV PRN (17:44)
[2024-07-03] MEDS ORDERED: ATROPINE SULFATE 0.1 MG/ML 10ML SYR IV PRN (17:44)
[2024-07-03] MEDS ORDERED: ePHEDrine sulfate 50 MG/ML AMP IV PRN (17:44)
[2024-07-03] MEDS ORDERED: fentaNYL citrate PF 100 MCG/2 ML VIAL IV PRN (17:44)
--- NOTE | 2024-07-03 17:55 | Anesthesiology Consultation ---
Date of Service July 03, 2024 Assessment & Plan (1) Encounter for pre-operative examination: Chart Review Chart Review: Acceptable Risk for Surgery and Patient NOT seen in Pre Admission Testing Consults Requested none History Surgery Operation Date: 07/03/24 11:20 Proposed Procedures p Cystoscopy, Bilateral Retrograde Pyelogram, Bilateral Stent Placement - Bebeto Engle MD Height/Weight Height: 5 ft 10.5 in Weight: 104.3 kg Allergies Allergy/AdvReac Type Severity Reaction Status Date / Time Iodinated Contrast Media Allergy Severe Difficulty Verified 07/03/24 16:48 Breathing lactose Allergy Severe (dairy) Verified 07/03/24 16:48 Difficulty Breathing milk Allergy Severe Difficulty Verified 07/03/24 16:48 Breathing Sulfa (Sulfonamide Allergy Severe Difficulty Verified 07/03/24 16:48 Antibiotics) Breathing adhesive tape Allergy Mild itching Verified 07/03/24 16:48 latex Allergy Mild contact Verified 07/03/24 16:48 dermatitis casein Allergy Unknown difficulty Verified 07/03/24 16:48 breathing soy Allergy Unknown Unknown Verified 07/03/24 16:48 midazolam [From Versed] AdvReac Intermediate "i just Verified 07/03/24 16:48 get a lot of vomiting" Medications Home Medications Medication Instructions Recorded Confirmed Last Taken cholecalciferol (vitamin D3) 25 25 mcg PO QAM 01/19/22 07/03/24 07/03/24 mcg (1,000 unit) capsule magnesium citrate 100 mg tablet 100 mg PO UD 01/19/22 07/03/24 07/03/24 zinc 50 mg tablet 50 mg PO QAM 01/19/22 07/03/24 07/03/24 potassium citrate 99 mg capsule 99 mg PO UD 05/01/22 07/03/24 07/03/24 calcium citrate 250 mg PO UD 08/30/22 07/03/24 07/03/24 tramadol 50 mg tablet 50 mg PO Q6H PRN pain #20 tabs 05/16/24 07/03/24 07/03/24 NPO Date Last Intake of Fluids: 07/03/24 Time Last Intake of Fluids: 06:00 Date Last Intake of Solids: 07/03/24 Time Last Intake of Solids: 06:00 Past Medical History Medical History Chronic renal failure, stage 3b History of COVID-19 2019- mild symptoms, resolved Benign positional vertigo IBS (irritable bowel syndrome) Medullary sponge kidney History of nephrolithiasis Exercise / Class Metabolic Activity II 4-5 Yardwork/Stairs/Walk up hill Past Family History Family History Family/Other Kidney stones Cancer Hypertension Mother Family history of reaction to anesthesia 1972 radical mastectomy--had difficulty time waking her Sister Family history of reaction to anesthesia difficulty waking/nausea Past Surgical History Surgical History Ureteral stent present "has had multiple over the years for multiple stones" History of anesthesia reaction 04/2019 "intubation induced apnea" at [facility] in [place] was told this during cystoscopy. pt has had multiple procedures since this time without issue History of dilatation and curettage History of bilateral tubal ligation History of strabismus surgery Left History of cystoscopy Multiple H/O lithotripsy Multiple; most recent: 02/05/24: [place]: LMA#4 unique Past Anesthesia History No Hx of Anesthesia Complications and No Family Hx of Anesthesia Complications History of PONV No Hx of PONV and No Hx of Motion Sickness Social History Smoking Status: Never smoker Do You Dip or Chew Tobacco: No Hx Alcohol Use: No Hx Substance Use: No substance use type: does not use Physical Exam Vital Signs Last Vital Signs Temp 37 C 07/03/24 17:17 Pulse 136 H 07/03/24 17:17 Resp 20 07/03/24 17:17 BP 192/102 H 07/03/24 17:17 Pulse Ox 97 07/03/24 16:42 O2 Del Method Room Air 07/03/24 16:42 Testing Laboratory Results 07/03/24 15:30 07/03/24 15:30 Urine Color Yellow 07/03/24 15:30 Urine Appearance Clear (Clear) 07/03/24 15:30 Urine pH 7.0 (4.5-7.5) 07/03/24 15:30 Ur Specific [place] 1.009 (1.000-1.030) 07/03/24 15:30 Urine Protein 1+ (Negative) H 07/03/24 15:30 Urine Glucose (UA) Negative (Negative) 07/03/24 15:30 Urine Ketones Negative (Negative) 07/03/24 15:30 Urine Nitrite Positive (Negative) A 07/03/24 15:30 Ur Leukocyte Esterase 3+ (Negative) H 07/03/24 15:30 Urine WBC (Auto) >50 /hpf (0-5) H 07/03/24 15:30 Urine RBC (Auto) 11-20 /hpf (0-2) H 07/03/24 15:30 U Hyaline Cast (Auto) 0-2 /lpf (0-2) 07/03/24 15:30 U Epithel Cells (Auto) 0-2 /hpf (0-2) 07/03/24 15:30 Urine Bacteria (Auto) 4+ (None Seen) H 07/03/24 15:30
[2024-07-03] MEDS ORDERED: SUCCINYLCHOLINE CHLORIDE 20 MG/ML 10 ML VIAL IV ONE (18:13)
[2024-07-03] MEDS ORDERED: fentaNYL citrate PF 100 MCG/2 ML VIAL ONE (18:13)
[2024-07-03] MEDS ORDERED: ROCURONIUM BROMIDE 10 MG/ML 5 ML VIAL IV ONE (18:27)
[2024-07-03] MEDS ORDERED: DROPERIDOL 5 MG/2 ML VIAL ONE (18:40)
[2024-07-03] MEDS: DIATRIZOATE MEGLUMINE 30% 100ML VIAL INSTIL ONE (18:44)
--- NOTE | 2024-07-03 18:51 | Operative Report ---
PG Post Operative Report Pre & Post Diagnosis Operation Date: 07/03/24 11:20 Pre-Op Diagnosis: (1) UTI (urinary tract infection): (2) Medullary sponge kidney: (3) Nephrolithiasis: Post-Op Diagnosis: (1) UTI (urinary tract infection): (2) Medullary sponge kidney: (3) Nephrolithiasis: I identified the patient and participated in the time-out.: Yes Procedure Operation Date: 07/03/24 11:20 Actual Procedures p Cystoscopy, Bilateral Stent Placement(Bilateral) - Bebeto Engle MD Surgeon Bebeto Engle MD Dye Range Feeder none Estimated Blood Loss 0 Findings Consistent with Post-Op Diagnosis Specimens None Drains 6 Tongan by 24 cm double-J ureteral stents bilaterally Anesthesia Type General Complications none Disposition Accompanied Patient To Recovery: Yes Disposition: Recovery Room Indications This is a 59-year-old female with history of nephrolithiasis. She presented to the emergency department on 07/03/2024 with urine concerning for infection and bilateral potentially obstructing stones. She is brought to the OR for bilateral ureteral stent placement. Description of Procedure The patient was identified in the holding area and informed consent was confirmed. She was taken to the operating room where anesthesia was initiated. She was placed in the dorsal lithotomy position with all pressure points appropriately padded. She was prepped and draped in the usual sterile fashion and a preoperative timeout was performed. A well-lubricated cystoscope was inserted per urethra and panendoscopy was performed. The urethra was normal in appearance. The bladder was of normal size with ureteral orifices in orthotopic position. The mucosa of the bladder was fairly irritated appearing with sediment within the lumen of the bladder. The left ureteral orifice was identified and cannulated with a 5 Tongan open- ended catheter. A 0.038" ZIPwire was advanced to the level of the kidney under fluoroscopic guidance. Over the wire, a 6 Tongan x 24 centimeter double-J ureteral stent was advanced. When the wire was removed, the proximal curl was visualized in the kidney with x-ray, and the distal curl visualized in the bladder with the cystoscope. There was drainage of turbid urine through the stent. In a similar fashion, the right ureteral orifice was cannulated and a zip wire was advanced to the kidney. Over the wire, a 6 Tongan by 24 cm double-J ureteral stent was advanced. This also demonstrated a good curl in the right kidney as well as an appropriate curl in the bladder. The urine draining on the right side did not appear as cloudy. A 16 Tongan Galeana catheter was placed. The balloon was inflated with 10 mL normal saline and catheter was attached to gravity drainage. The patient was then awakened from anesthesia and was brought to the PACU in stable condition. I attest to the content of the Intraoperative Record and any orders documented therein. Any exceptions are noted below.
[2024-07-03] MEDS ORDERED: KETOROLAC 30 MG/ML VIAL ONE (18:52)
[2024-07-03] MEDS ORDERED: LABETALOL HCL IV 5 MG/ML 20ML IV ONE ×4 (18:56→18:59)
[2024-07-03] MEDS ORDERED: ALBUTEROL HFA 8 GM INHALER INH ONE (18:59)
[2024-07-03] MEDS ORDERED: PHENYLEPHRINE 100MCG/ML 5ML SYR ONE (19:05)
[2024-07-03] MEDS ORDERED: ACETAMINOPHEN 325 MG TAB PO PRN (20:08)
[2024-07-03] MEDS ORDERED: DOCUSATE SODIUM 100 MG CAP PO PRN (20:08)
--- NOTE | 2024-07-03 20:14 | Anesthesiology Progress Note ---
Date of Service July 03, 2024 Anesthesia Post Procedure Vital Signs Vital Signs: Temp Pulse Pulse Pulse Resp BP BP 07/03/24 20:00 37.9 C H 96 H 18 114/77 07/03/24 19:50 101 H 18 125/75 07/03/24 19:40 38.3 C H 100 H 17 121/81 07/03/24 19:30 101 H 18 133/82 07/03/24 19:20 101 H 21 142/84 H 07/03/24 19:10 100 H 20 150/89 H 07/03/24 19:03 37 C 100 H 21 145/86 H 07/03/24 17:17 37 C 136 H 20 07/03/24 17:00 116 H 22 07/03/24 16:58 07/03/24 16:56 188/117 H 07/03/24 16:42 99 H 19 07/03/24 16:21 88 14 07/03/24 16:15 86 23 07/03/24 16:12 84 07/03/24 16:03 96 H 20 07/03/24 16:00 191/120 H 07/03/24 15:51 95 H 22 07/03/24 14:49 36.6 C 93 H 18 171/147 H BP Pulse Ox O2 Del Method O2 Flow Rate 07/03/24 20:00 93 Nasal Cannula 2 07/03/24 19:50 94 Nasal Cannula 2 07/03/24 19:40 93 Nasal Cannula 2 07/03/24 19:30 93 Nasal Cannula 2 07/03/24 19:20 94 Oxymask 3 07/03/24 19:10 97 Oxymask 11 07/03/24 19:03 96 Oxymask 11 07/03/24 17:17 192/102 H 07/03/24 17:00 07/03/24 16:58 188/117 H 07/03/24 16:56 07/03/24 16:42 97 Room Air 07/03/24 16:21 98 Room Air 07/03/24 16:15 97 Room Air 07/03/24 16:12 07/03/24 16:03 94 Room Air 07/03/24 16:00 07/03/24 15:51 189/106 H 99 Room Air 07/03/24 14:49 96 Room Air Pain Intensity Left Flank: Pain Intensity: 10 Transfer of Care Handoff Completed per policy Notes Mental Status: alert / awake / arousable and participated in evaluation Patient Amnestic to Procedure: Yes Nausea / Vomiting: adequately controlled Pain: adequately controlled Airway Patency, RR, SpO2: stable & adequate BP & HR: stable & adequate Hydration State: stable & adequate Anesthetic Complications: no major complications apparent and Pt Satisfied with anesthetic care
--- NOTE | 2024-07-04 07:55 | Fluoroscopy Report ---
FL KUB CLINICAL HISTORY: BILATERALfollow-up study in a patient with ureteral stents COMPARISON STUDY: 05/16/2024 FLUOROSCOPY TIME: 11.4 seconds FLUOROSCOPY IMAGES: 2 EXPOSURE DOSE: 3.64 mGy FINDINGS: Proximal portion of the ureteral stents appear to be in satisfactory positioning. The dista l portions were not imaged. IMPRESSION: Fluoroscopic assistance as above ACT 112: Negative or not required by law. Electronically signed by: Lemuel Andujar M.D. 07/04/2024 7:54 AM
[2024-07-04] MEDS: PANTOprazole 40 MG TAB PO ONE (07:56)
[2024-07-04 08:22] LABS: Hematocrit (blood only) 43.5 % (37.0-47.0); Hemoglobin 13.9 g/dl (12.0-16.0); Mean Corpuscular Volume 97.1 fL (80.0-100.0); Platelet Count 175 K/uL (130-400); RDW Coefficient of Variation 13.6 % (11.5-14.5); RDW Standard Deviation 48.7 fL (36.4-46.3); Red Blood Count 4.48 M/uL (4.20-5.40); White Blood Count 21.08 K/ul (4.8-10.8)
--- NOTE | 2024-07-04 08:23 | Urology Progress Note ---
Date of Service July 04, 2024 Assessment & Plan (1) UTI (urinary tract infection): (2) Nephrolithiasis: (3) Ureteral calculi: Plan 59-year-old female with recurrent nephrolithiasis, admitted with bilateral ureteral stones and concern for UTI. - Pt is now POD #1 s/p Cystoscopy, Bilateral Stent Placement - Subjectively feeling better and tolerating the stents with minimal bother. - Afebrile with stable vitals at present - Labs reviewed - WBC up to 21.08 and Creatinine 2.67. Not unexpected given procedure/infection/bilateral obstruction. Continue to trend. - Urine culture prelim gram negative bacilli - Galeana catheter intact and draining yellow urine - Continue supportive care - Continue antibiotics and tailor per culture sensitivities - Pt requesting Galeana catheter removal - OK to remove and monitor for void - Will arrange outpatient follow-up with our service to discuss definitive stone treatment - Urology will sign off. Please call with any further questions or concerns. Admission and Anticipated Discharge Date Admission Date: July 03, 2024 Subjective Pt seen at bedside today Awake and sitting in bedside chair on arrival No acute distress Reports she is feeling better overall Tolerating the stents well Galeana draining yellow urine Denies pain Denies f/c/n/v Review of Systems Constitutional: as per Subjective / HPI Genitourinary: as per Subjective / HPI Physical Exam Constitutional: no acute distress Respiratory: no respiratory distress and no labored breathing Neurologic: awake Psychiatric: A+Ox3, euthymic affect Genitourinary: Galeana intact Results & Data Vital Signs (Past 12 Hours) Vital Signs Temp Pulse Pulse Resp BP Pulse Ox O2 Del Method 07/04/24 07:50 36.6 C 88 16 113/77 99 Room Air 07/04/24 05:56 95 Room Air 07/04/24 05:52 93 Nasal Cannula 07/04/24 02:41 36.7 C 81 16 102/68 92 Nasal Cannula 07/03/24 23:09 36.9 C 77 18 108/75 93 Nasal Cannula 07/03/24 22:00 36.4 C L 86 18 92/63 L 92 Nasal Cannula 07/03/24 20:58 36.4 C L 98 H 16 111/78 94 Nasal Cannula 07/03/24 20:30 Nasal Cannula 07/03/24 20:30 37.1 C 94 H 16 116/78 92 Nasal Cannula O2 Flow Rate 07/04/24 07:50 07/04/24 05:56 07/04/24 05:52 2 07/04/24 02:41 2 07/03/24 23:09 1 07/03/24 22:00 2 07/03/24 20:58 1 07/03/24 20:30 2 07/03/24 20:30 2 PG Care Time/CCT Total # of Minutes Spent Total Time Spent with Patient: Total time spent is greater than 50% in coordination of care (as documented) at patient's floor/unit and/or counseling patient: Coding Level of Care Code 10228 SUB INP/OBS CARE 235MIN Diagnoses UTI (urinary tract infection) N39.0 Nephrolithiasis N20.0 Ureteral calculi N20.1
[2024-07-04 08:29] LABS: BUN Creatinine Ratio 12.7 (10-20); Calcium 9.3 mg/dl (8.6-10.3); Creatinine Clr Calc Pharmacy 28.9 ml/min; Magnesium 2.2 mg/dl (1.7-2.4); Potassium 4.2 mmol/L (3.5-5.1)
[2024-07-04 08:37] LABS: Basophils # (auto) 0.03 K/uL (0.00-0.20); Basophils % (auto) 0.1 %; Immature Granulocytes # (auto) 0.29 K/uL (0.01-0.20); Immature Granulocytes % (auto) 1.4 %; Lymphocytes # (auto) 0.53 K/uL (1.20-3.40); Lymphocytes % (auto) 2.5 %; Monocytes # (auto) 1.41 K/uL (0.11-0.59); Monocytes % (auto) 6.7 %; Neutrophils # (auto) 18.82 K/uL (1.40-6.50); Neutrophils % (auto) 89.3 %
[2024-07-04] MEDS: PLASMA-LYTE A 1,000 ML IV SCH (10:26)
[2024-07-04] MEDS: cefTRIAXone SODIUM 2,000 MG/50 ML BAG IV SCH (14:59)
--- NOTE | 2024-07-04 17:22 | Electrocardiogram Report ---
Test Reason : Blood Pressure : */* mmHG Vent. Rate : 101 BPM Atrial Rate : 101 BPM P-R Int : 148 ms QRS Dur : 84 ms QT Int : 332 ms P-R-T Axes : 33 15 62 degrees QTcB Int : 430 ms Sinus tachycardia Nonspecific T wave abnormality Abnormal ECG When compared with ECG of 11-Dec-2023 17:43, Vent. rate has increased by 41 bpm Nonspecific T wave abnormality, worse in Lateral leads Confirmed by Gerardo Blevins ([id number]) on 07/04/2024 5:22:12 PM Referred By: REFERRED SELF Confirmed By: Gerardo Blevins
[2024-07-05 07:41] VITALS: BP 127/87; RESP 16; TEMP 97.9; O2SAT 95
[2024-07-05 08:11] LABS: Calcium 9.6 mg/dl (8.6-10.3); Creatinine Clr Calc Pharmacy 29.1 ml/min; Potassium 4.5 mmol/L (3.5-5.1)
--- NOTE | 2024-07-05 10:09 | Hospitalist Progress Note ---
Date of Service July 04, 2024 Assessment & Plan (1) Sepsis: Plan: Secondary to UTI with obstructing stone IV ceftriaxone Urine culture with E. coli, sensitivities pending (historically multi-resistant) Present on Admission?: Yes (2) UTI (urinary tract infection): (3) Ureteral calculi: Plan: s/p ureteral stent insertion performed by Dr Engle 07/03 (4) Chronic renal failure, stage 3b: Plan: Cr 2.67 from 2.22 yesterday, will start 1L plasma-lyte and recheck in AM Plan VTE Prophylaxis - low risk Diet - regular Disposition - continue on med/surg, ongoing stay due to increased WBC/Cr and prior history of multi-drug resistant E. coli Admission and Anticipated Discharge Date Admission Date: July 03, 2024 Subjective Significantly improved pain since admission. WBC increasing. Cr worse from yesterday but urinating well. Awaiting chatman catheter removal Physical Exam Constitutional: WD/WN, vitals as above Respiratory: normal respiratory effort, lungs clear to auscultation Cardiovascular: RRR, no murmur, no edema Gastrointestinal (Abdomen): normal bowel sounds, soft, nontender, no hepatosplenomegaly Genitourinary: no CVA tenderness Results & Data Results & Data Vital Signs (Past 12 Hours) Vital Signs Temp Pulse Resp BP Pulse Ox O2 Del Method 07/05/24 07:40 36.6 C 68 16 127/87 95 Room Air PG Care Time/CCT Total # of Minutes Spent Total Time Spent with Patient: Total time spent is greater than 50% in coordination of care (as documented) at patient's floor/unit and/or counseling patient: Coding Level of Care Code 86078 SUB INP/OBS CARE 2/35MIN Diagnoses Sepsis A41.9 Sepsis acute organ dysfunction status: unspecified Sepsis type: sepsis due to unspecified organism UTI (urinary tract infection) N39.0 Ureteral calculi N20.1 Chronic renal failure, stage 3b N18.32 (1) Sepsis Sepsis acute organ dysfunction status: unspecified Sepsis type: sepsis due to unspecified organism Qualified Code(s): A41.9 - Sepsis, unspecified organism
[2024-07-05] MEDS: CEFDINIR 300 MG CAP PO STA (11:36)
[2024-07-05 11:50] VITALS: PULSE 98
--- NOTE | 2024-07-05 14:01 | Discharge Summary ---
Date of Service July 05, 2024 Admission HPI Per Admitting Provider Patient is a 59-year-old female with past medical history of recurrent infected nephrolithiasis requiring stent placement. She presents today with symptoms of left-sided flank pain, nausea, and many episodes of vomiting that began at 7 AM this morning. She stated that she tried to take a Toradol at 1 PM did not relieve her pain. Patient denies fever, chills, headache, dizziness, lightheadedness, dyspnea, dyspnea on exertion, chest pain, dysuria, hematuria. The pain is on the left side, flank and around the front of her abdomen. She denies right sided pain. Pain and nausea are mildly relieved with Zofran and 5 Mg of morphine. She denies history of nicotine use or alcohol use. She denies past history of hypertension, DM, or VTE ZULMA. She does states she gets hypertensive when she has a kidney stone due to pain and being dehydrated. She took her home medications this morning which she just consists of supplements. She wishes to be full code at this time. Discussed with on-call urologist, Dr. Engle - Planning for stent placement this evening as patient's last meal was 0600. she will be admitted for IV antibiotics due to infected stone. Admission Exam (Per Admitting) Constitutional The patient is awake, alert and oriented 3, well developed and well nourished, normocephalic and atraumatic, lying in bed and in no acute distress. HEENT--PERRL, EOMI, mucous membranes and oropharynx mildly dry Neck--supple. No JVD. No bruits. Thyroid normal, trachea midline, no adenopathy. Heart--normal S1 and S2. No murmurs, rubs or gallops. Lungs--clear bilaterally, no respiratory distress, no accessory muscle use. Abdomen--normal bowel sounds and soft. Extremities--no cyanosis or clubbing. No edema. Dermatologic--normal skin turgor, normal color, no abnormal lymph nodes, no rash. Neurologic--cranial nerves II through XII grossly intact. Rheumatologic--normal range of motion. Psychiatric--normal affect. Discharge Data Consultations 07/03/24 17:06 Consult Urology Routine Procedures Performed Operation Date: 07/03/24 11:20 Actual Procedures p Cystoscopy, Bilateral Stent Placement(Bilateral) - Bebeto Engle MD Hospital Course (1) Sepsis: Secondary to UTI with obstructing stone IV ceftriaxone Urine culture with E. coli, sensitivities showing resistant to multiple med ications, sensitive to cephalosporins, Ertapenem, meropenem Patient says she has taken cefdinir before, with similar sensitivity as now Will d/c her on cefdinir for 5 more days (2) UTI (urinary tract infection): (3) Ureteral calculi: s/p ureteral stent insertion performed by Dr Engle 07/03 (4) Chronic renal failure, stage 3b: Cr 2.67 from 2.22 yesterday, will start 1L plasma-lyte and recheck in AM Plan VTE Prophylaxis - low risk Diet - regular Disposition - d/c home Coding Level of Care Code 73831 INP/OBS DISCH >30 MIN Diagnoses Sepsis A41.9 Sepsis acute organ dysfunction status: unspecified Sepsis type: sepsis due to unspecified organism UTI (urinary tract infection) N39.0 Ureteral calculi N20.1 Chronic renal failure, stage 3b N18.32 Time Spent (min) 35
== END 2024-07-05 13:53 | disposition home or self-care (01) ==
LOC: ED 14:43 → SUATTDRO 17:04 → 3N 17:06 → OR 17:06
DX: Z88.8 Allergy status to other drugs, medicaments and biological substances; Z91.041 Radiographic dye allergy status; Z79.899 Other long term (current) drug therapy; Z91.011 Allergy to milk products; N20.1 Calculus of ureter; Z91.018 Allergy to other foods; N39.0 Urinary tract infection, site not specified; Z91.040 Latex allergy status; Z88.2 Allergy status to sulfonamides; Z91.048 Other nonmedicinal substance allergy status; A41.9 Sepsis, unspecified organism; N18.32 Chronic kidney disease, stage 3b